=== PATIENT | male | born 1940 | race Caucasian/White ===

== ENCOUNTER → 2016-11-10 | Outpatient (CLI) | payer OTHER ==
[~2016-11-10] MED LIST: AMLO-114 PO; ASPEC325 PO; ASPI-113 PO; ATEN-173 PO; ATV5 PO; CALC500C70 PO; CZR50 PO; HYD50 PO; HYDR-600 PO; HYT/2 PO; INSDGI SC; INSUINJ7 SC; LISI40TA PO; OXYB5TAB74 PO; OXYC-292 PO; PRLSR20 PO; SIMV10TA2 PO; cholecalciferol; potassium otc PO
--- NOTE | 2016-11-10 13:26 | DIAGNOSTIC IMAGING REPORT ---
MRI OF THE LUMBAR SPINE WITHOUT CONTRAST CLINICAL HISTORY: Low back pain radiating into lower extremities. COMPARISON STUDY: No previous studies for comparison. TECHNIQUE: Utilizing a 0.7 Harleen open magnet and dedicated coil, multiplanar, multiecho imaging of the lumbar spine was performed without IV contrast. FINDINGS: For purposes of numbering on this exam, the L5-S1 disc space is assigned to axial image 27 of 30. There is mild anterolisthesis of L4 and L5 likely due to facet arthrosis. Vertebral body heights are maintained. There are Schmorl's node along the inferior endplate of L4. A few additional Schmorl's nodes are present. No marrow replacement is present. The conus terminates at the mid L1 level. This exam is compromised by artifact related to low field strength. There is extensive epidural fat within the lumbar and sacral canals. There is a possible 5 mm synovial cyst arising from the right L2-L3 facet joint within the canal. There may be an additional 5 mm synovial cyst within the right aspect of the canal at the L4-L5 level. L1-2: The central canal and neural foramen are patent. L2-3: There is disc space narrowing with disc bulge, ligamentous hypertrophy and facet arthrosis. There is a possible 5 mm synovial cyst within the right aspect of the canal. There is mild narrowing of the central canal, lateral recesses and left neural foramen with moderate narrowing of the right neural foramen. L3-4: There is mild facet arthrosis and ligamentous hypertrophy. The central canal is patent. There is mild during of both neural foramen. L4-5: There is severe facet arthrosis. Ligamentous hypertrophy is noted. There is a possible 5 mm synovial cyst within the right aspect of the canal. There is extensive epidural fat. There is moderate narrowing of the central canal and neural foramen. L5-S1: There is severe facet arthrosis. There is minimal disc bulge. The central canal is patent. There is moderate left and mild right neural foraminal stenosis. IMPRESSION: 1. Mild multilevel degenerative disc disease with severe multilevel facet arthrosis. 2. Study compromised by artifact related to low field strength. 3. Two possible small synovial cysts within the right aspect of the canal at the L2-L3 and L4-L5 levels, as described above. 4. Moderate multifactorial central canal stenosis at L4-L5. Moderate multilevel neural foraminal stenosis, as detailed above. Extensive epidural fat within the canal. Electronically signed by: Kosta Ellis M.D. 11/10/2016 1:24 PM Dictated Date/Time: 11/10/2016 1:14 PM
== END | disposition home or self-care (01) ==
LOC: C.OPENMRI 11:59
PROVIDERS: ATTEND Pain Medicine Interventional Pain Medicine
DX: M54.5 Low back pain (principal); M48.06 Spinal stenosis, lumbar region

== ENCOUNTER 2017-02-13 13:52 | Emergency (ER) | payer OTHER ==
[~2017-02-13] VITALS: Ht 180.3 cm; Wt 145.1 kg
[~2017-02-13 13:52] MED LIST changes: +DTR/5 PO; -OXYB5TAB74 PO
[2017-02-13 13:58] VITALS: BP 129/66; PULSE 79; TEMP 36.8; O2SAT 92; Ht 180.3 cm; Wt 145.1 kg
--- NOTE | 2017-02-13 14:13 | EMERGENCY ROOM VISIT NOTE ---
ED Visit Note First contact with patient: 14:04 CHIEF COMPLAINT: Tick bite HISTORY OF PRESENT ILLNESS: Patient is a 77-year-old white male who presents to emergency department for evaluation of a right back. He felt it last night. They tried to take it off, but when they looked at it again today they thought the tick was still present. He states that it has been on for less than 24 hours. He believes that he came in on one of his dogs. REVIEW OF SYSTEMS: Review of systems as per HPI. All other systems reviewed were negative. At least 6 systems reviewed. PMH: Electronic medical records are reviewed and summarized as above/below. See Problem List. SOCIAL HISTORY: Patient lives at home. Non-smoker, occasional alcohol use. PHYSICAL EXAM: Vital Signs: Reviewed Nurse's notes. There is a small zone of inflammation and eccymosis around the spot where the tick was, which is scabbed over.. The skin is otherwise clear. NEUROLOGICAL: Alert and cooperative. Sensory and motor functions grossly intact. The patient was seen and assessed as above. He was reassured. The site was examined thoroughly and there did not appear to be a tick, nor any parts of the tick present. Bacitracin and a Band-Aid were applied. There is no indication for Lyme prophylaxis. Problem List Medical Problems: (1) Diab Shante Wo Compl, Type Ii Or Unspec Type, Not Uncntrld Status: Chronic (2) Esophageal Reflux Status: Chronic (3) Hypertension Nos Status: Chronic (4) Left knee DJD Status: Resolved (5) Morbid Obesity Status: Chronic (6) Pure Hypercholesterolem Status: Chronic Surgical Problems: (1) Knee Joint Replacement Status Status: Resolved Current/Historical Medications Unable to Obtain Active Prescriptions or Reported Meds Allergies Coded Allergies: No Known Allergies (Verified , 11/01/13) Vital Signs Date Time Temp Pulse Resp B/P Pulse Ox O2 Delivery O2 Flow Rate FiO2 02/13/17 13:58 36.8 79 22 129/66 92 Room Air Departure Information Impression Primary Impression: Tick bite Prescriptions Unable to Obtain Active Prescriptions or Reported Meds Referrals No Doctor, Assigned (PCP) Patient Instructions My [facility] [employer] Additional Instructions Use Ibuprofen or Tylenol as needed for pain/discomfort. Follow up with family physician for continued care and treatment; rashes, bullet lesion, muscle or joint pain. Watch for signs of infection; increasing redness and swelling, pus like drainage or fevers. Keep antibiotic ointment on the site for 2-3 days. Return to the ED for signs of infection.
== END 2017-02-13 14:18 | disposition home or self-care (01) ==
LOC: C.EDB 13:53 → C.EDD 14:18
DX: S20.461A Insect bite (nonvenomous) of right back wall of thorax, initial encounter (principal); W57.XXXA Bitten or stung by nonvenomous insect and other nonvenomous arthropods, initial encounter; E11.9 Type 2 diabetes mellitus without complications; I10 Essential (primary) hypertension; K21.9 Gastro-esophageal reflux disease without esophagitis; E66.01 Morbid (severe) obesity due to excess calories; E78.00 Pure hypercholesterolemia, unspecified; Z96.659 Presence of unspecified artificial knee joint

== ENCOUNTER 2018-02-17 10:04 | Emergency (ER) | payer OTHER ==
[~2018-02-17] VITALS: Ht 177.8 cm; Wt 129.5 kg
[2018-02-17 10:44] VITALS: TEMP 37; Ht 177.8 cm; Wt 129.5 kg
[2018-02-17 10:50] VITALS: O2SAT 92
[2018-02-17] MEDS ORDERED: VNTHFA/IN INH (10:52)
[2018-02-17] MEDS ORDERED: CALC500C70 PO (10:52)
[2018-02-17] MEDS ORDERED: CHOL1000 PO (10:52)
[2018-02-17] MEDS ORDERED: INSDGI SC (10:52)
[2018-02-17] MEDS ORDERED: NVLG SC ×2 (10:52)
[2018-02-17] MEDS ORDERED: TAMS0.4C38 PO (10:52)
[2018-02-17] MEDS ORDERED: PRLSR20 PO (10:52)
[2018-02-17] MEDS ORDERED: POTA1TAB PO (10:52)
[2018-02-17] MEDS ORDERED: LOSA50TA54 PO (10:52)
[2018-02-17] MEDS ORDERED: TRAM-10 PO (10:52)
[2018-02-17] MEDS ORDERED: DOCU100C31 PO (10:52)
[2018-02-17] MEDS ORDERED: FRS/40 PO (10:52)
[2018-02-17] MEDS ORDERED: ATEN-173 PO (10:52)
[2018-02-17] MEDS ORDERED: ASPITAB PO (10:52)
[2018-02-17] MEDS ORDERED: BUPR150T7 PO (10:52)
[2018-02-17] MEDS ORDERED: LORA-741 PO (10:52)
[2018-02-17] MEDS ORDERED: SIMV20TA2 PO (10:52)
[2018-02-17] MEDS ORDERED: OXYB10TA PO (10:52)
[2018-02-17] MEDS ORDERED: [UNRECOGNIZED DRUG - CODE] PO (10:52)
[2018-02-17 11:21] LABS: ISTAT CREATININE 2.1 mg/dl (0.6-1.3); ISTAT IONIZED CALCIUM 1.17 mmol/l (1.12-1.32); ISTAT POTASSIUM 4.3 mEq/L (3.3-5.0)
[2018-02-17 11:27] LABS: BASO % 0.1 %; BASO ABS # 0.01 K/uL (0-0.2); EOS % 0.6 %; EOS ABS # 0.06 K/uL (0-0.5); HEMATOCRIT 47.7 % (42-52); HEMOGLOBIN 16.8 g/dL (14.0-18.0); IG# 0.07 K/uL (0.00-0.02); LYMPH % 13.2 %; MEAN CELL VOLUME 96.8 fL (80-100); MEAN CORPUSCULAR HEMOGLOBIN 34.1 pg (25-34); MEAN CORPUSCULAR HGB CONC 35.2 g/dl (32-36); MEAN PLATELET VOLUME 11.3 fL (7.4-10.4); MONO % 9.7 %; MONO ABS # 1.03 K/uL (0.11-0.59); NEUT % 75.7 %; NEUT ABS # 8.02 K/uL (1.4-6.5); PLATELET COUNT 177 K/uL (130-400); RED CELL DISTRIBUTION WIDTH CV 14.2 % (11.5-14.5); WHITE BLOOD COUNT 10.59 K/uL (4.8-10.8)
[2018-02-17 11:35] LABS: ALBUMIN 3.2 gm/dl (3.4-5.0); ALT/SGPT 25 U/L (12-78); AST/SGOT 20 U/L (15-37); BLOOD UREA NITROGEN 26 mg/dl (7-18); CALCIUM 9.4 mg/dl (8.5-10.1); CARBON DIOXIDE 30 mmol/L (21-32); CREATININE 2.12 mg/dl (0.60-1.40); GLUCOSE 202 mg/dl (70-99); LIPASE 50 U/L (73-393); POTASSIUM 4.3 mmol/L (3.5-5.1); SODIUM 136 mmol/L (136-145)
[2018-02-17 11:45] LABS: ALKALINE PHOSPHATASE 85 U/L (45-117); PHOSPHORUS 2.8 mg/dl (2.5-4.9); TOTAL PROTEIN 6.9 gm/dl (6.4-8.2)
--- NOTE | 2018-02-17 11:45 | DIAGNOSTIC IMAGING REPORT ---
R PELVIS/UNILATERAL HIP 2-3VIEWS HISTORY: 78 years-old Male right hip pain fall acute pelvic and right hip pain status post fall COMPARISON: None available TECHNIQUE: Single AP view the pelvis with 2 views of the right hip FINDINGS: Moderate degenerative changes about the bilateral femoral acetabular joints with moderate to severe pubic symphysis and moderate bilateral SI joint degenerative change. Facet arthrosis with endplate spurring and intervertebral disc space narrowing involves the imaged lumbar spine. Dystrophic appearing calcifications are seen within the distribution of the proximal hamstring musculature bilaterally. Phleboliths of the pelvis. Peripheral vascular disease. No acute fracture or dislocation. IMPRESSION: 1. No acute fracture or dislocation. 2. Degenerative changes as above. The above report was generated using voice recognition software. It may contain grammatical, syntax or spelling errors. Electronically signed by: Gualberto Griffin M.D. 02/17/2018 11:44 AM Dictated Date/Time: 02/17/2018 11:42 AM
[2018-02-17] MEDS ORDERED: FENTANYL CITRATE INJ 50 MCG/1 ML 2 ML VIAL IV STA (11:51)
--- NOTE | 2018-02-17 11:52 | DIAGNOSTIC IMAGING REPORT ---
R RIBS UNILATERAL WITH PA CHEST CLINICAL HISTORY: Right chest wall pain following fall. COMPARISON STUDY: Chest radiograph November 03, 2013. FINDINGS: No pneumothorax or pleural effusion is noted. Catheter projects over the left hemithorax. No acute right rib fractures are identified although sensitivity is diminished given suboptimal penetration. A few old right-sided rib fractures are noted. There are degenerative changes of the right shoulder. IMPRESSION: No pneumothorax. No acute right rib fractures identified. Electronically signed by: Kosta Ellis M.D. 02/17/2018 11:50 AM Dictated Date/Time: 02/17/2018 11:47 AM
[2018-02-17] MEDS ORDERED: SODIUM CHLORIDE 0.9% 500ML 500 ML IV STA (11:54)
[2018-02-17] MEDS ORDERED: SODIUM CHLORIDE 0.9% 1000ML 1,000 ML IV STA (11:54)
[2018-02-17 13:38] VITALS: BP 142/79; PULSE 80; O2SAT 96
[2018-02-17] MEDS ORDERED: LIDODERM (LIDOCAINE) PATCH 5% TD STA (13:49)
[2018-02-17] MEDS ORDERED: ACETAMINOPHEN 500 MG TAB PO STA (13:49)
[2018-02-17] MEDS ORDERED: LDDP5 TD (14:10)
--- NOTE | 2018-02-17 14:15 | EMERGENCY ROOM VISIT NOTE ---
History Report prepared by Connor: William Olivas Under the Supervision of: Dr. Víctor Head M.D. First contact with patient: 10:25 Stated Complaint: HIP PAIN History of Present Illness The patient is a 78 year old male who presents to the Emergency Room with complaints of constant pain in his right hip that began last Tuesday, 6 days ago. The patient notes that he had a mechanical fall on Tuesday when he tripped over a "dog bed" and fell into his entertainment center. He states that his right hip hit the level of the entertainment center where the TV sits. He was able to walk following the fall, and has been walking all week, although there has been constant pain. The patient [facility] this [facility] for [facility], and he notes that he was "feeling dizzy." [facility] and the patient states that it was "a little funny." He was referred to the ED from the [facility]. The patient notes that he does feel a little short of breath, but this has been present for the past year or so. He denies any COPD, heart failure, anticoagulation therapy, palpitations, or history of irregular heart rate. He is not currently experiencing the dizziness. Per the nursing staff the patient became nauseous while going to get his x-ray at the [facility], which prompted them to get an EKG. Source of History: patient Onset: 6 days ago Position: leg (right hip) Quality: other (Pain from fall) Timing: constant, other (Falling episode 6 days ago) Associated Symptoms: + headache (dizziness earlier today), + nausea ( earlier today) Review of Systems See HPI for pertinent positives and negatives. A total of ten systems were reviewed and were otherwise negative. Past Medical & Surgical Medical Problems: (1) Diab Shante Wo Compl, Type Ii Or Unspec Type, Not Uncntrld (2) Esophageal Reflux (3) Hypertension Nos (4) Left knee DJD (5) Morbid Obesity (6) Pure Hypercholesterolem Surgical Problems: (1) Knee Joint Replacement Status Family History Hypertension Social History Smoking Status: Never Smoker Current/Historical Medications Scheduled Aspirin Buffered (Magaly Plus), 1 TAB PO DAILY Atenolol (Tenormin), 25 MG PO DAILY Bupropion Hcl (Wellbutrin Sr), 150 MG PO BID Calcium Polycarbophil (Eq Fiber Laxative), 1 TAB PO DAILY Calcium/Vitamin D (Os-Dhaval 500 Plus D), 1 TAB PO DAILY Cholecalciferol (Vitamin D3), 1 TAB PO DAILY Docusate Sodium (Docusate Sodium), 200 MG PO DAILY Furosemide (Lasix), 40 MG PO DAILY Insulin Aspart (Novolog), 15 UNITS SC AMPM Insulin Aspart (Novolog), 10 UNITS SC DAILY @ 1200 Insulin Glargine (Lantus), 60 UNITS SC BID Losartan Potassium (Cozaar), 50 MG PO DAILY Omeprazole (Prilosec), 20 MG PO BID Oxybutynin Chloride Er (Ditropan Xl), 10 MG PO HS Potassium Gluconate (Potassium Gluconate), 1 TAB PO DAILY Simvastatin (Zocor), 10 MG PO HS Tamsulosin Hcl (Flomax), 0.4 MG PO DAILY Scheduled PRN Albuterol Hfa (Ventolin Hfa), 2 PUFFS INH Q6H PRN for Shortness of Breath Lidocaine (Lidocaine), 1 PATCH TD DAILY PRN for Pain Lorazepam (Ativan), 0.5 MG PO TID PRN for Anxiety Tramadol (Ultram), 100 MG PO Q6H PRN for Severe Pain Allergies Coded Allergies: No Known Allergies (Verified , 11/01/13) Physical Exam Vital Signs Date Time Temp Pulse Resp B/P (MAP) Pulse Ox O2 Delivery O2 Flow Rate FiO2 02/17/18 13:38 80 18 142/79 96 Room Air 02/17/18 13:01 79 02/17/18 11:34 86 20 158/91 92 Room Air 02/17/18 10:50 92 Room Air 02/17/18 10:44 37.0 98 20 111/71 92 Room Air 02/17/18 10:18 97 Physical Exam GENERAL: Awake, alert, relatively well-appearing, in no distress HENT: Normocephalic, atraumatic. Dry Mucous Membranes. EYES: Normal conjunctiva. Sclera non-icteric. NECK: Supple. No nuchal rigidity. FROM. No JVD. RESPIRATORY: Clear to auscultation. CHEST: There is mild tenderness to the right posterior-lateral chest wall. No contusions/crepitus. CARDIAC: Regular rate, normal rhythm. Extremities warm and well perfused. Pulses equal. ABDOMEN: Soft, non-distended. No tenderness to palpation. No rebound or guarding. No masses. RECTAL: Deferred. MUSCULOSKELETAL: The back is symmetrical on inspection without obvious abnormality. There is no CVA tenderness to palpation. No joint edema. LOWER EXTREMITIES: There is tenderness to the right lateral hip. There is full ROM of the hips bilaterally. Calves are equal size bilaterally and non-tender. No edema. No discoloration. NEURO: Normal sensorium. No sensory or motor deficits noted. SKIN: No rash or jaundice noted. Medical Decision & Procedures ER Provider Diagnostic Interpretation: Radiology results as stated below per my review and radiologist interpretation: R PELVIS/UNILATERAL HIP 2-3VIEWS HISTORY: 78 years-old Male right hip pain fall acute pelvic and right hip pain status post fall COMPARISON: None available TECHNIQUE: Single AP view the pelvis with 2 views of the right hip FINDINGS: Moderate degenerative changes about the bilateral femoral acetabular joints with moderate to severe pubic symphysis and moderate bilateral SI joint degenerative change. Facet arthrosis with endplate spurring and intervertebral disc space narrowing involves the imaged lumbar spine. Dystrophic appearing calcifications are seen within the distribution of the proximal hamstring musculature bilaterally. Phleboliths of the pelvis. Peripheral vascular disease. No acute fracture or dislocation. IMPRESSION: 1. No acute fracture or dislocation. 2. Degenerative changes as above. The above report was generated using voice recognition software. It may contain grammatical, syntax or spelling errors. Electronically signed by: Gualberto Griffin M.D. 02/17/2018 11:44 AM Dictated Date/Time: 02/17/2018 11:42 AM R RIBS UNILATERAL WITH PA CHEST CLINICAL HISTORY: Right chest wall pain following fall. COMPARISON STUDY: Chest radiograph November 03, 2013. FINDINGS: No pneumothorax or pleural effusion is noted. Catheter projects over the left hemithorax. No acute right rib fractures are identified although sensitivity is diminished given suboptimal penetration. A few old right-sided rib fractures are noted. There are degenerative changes of the right shoulder. IMPRESSION: No pneumothorax. No acute right rib fractures identified. Electronically signed by: Kosta Ellis M.D. 02/17/2018 11:50 AM Dictated Date/Time: 02/17/2018 11:47 AM Laboratory Results 02/17/18 11:00 Red Blood Count 4.93, Mean Corpuscular Volume 96.8, Mean Corpuscular Hemoglobin 34.1, Mean Corpuscular Hemoglobin Concent 35.2, Mean Platelet Volume 11.3, Neutrophils (%) (Auto) 75.7, Lymphocytes (%) (Auto) 13.2, Monocytes (%) (Auto) 9.7, Eosinophils (%) (Auto) 0.6, Basophils (%) (Auto) 0.1, Neutrophils # (Auto) 8.02, Lymphocytes # (Auto) 1.40, Monocytes # (Auto) 1.03, Eosinophils # (Auto) 0.06, Basophils # (Auto) 0.01 02/17/18 11:00 Test 02/17/18 11:00 02/17/18 11:06 White Blood Count 10.59 K/uL (4.8-10.8) Red Blood Count 4.93 M/uL (4.7-6.1) Hemoglobin 16.8 g/dL (14.0-18.0) Hematocrit 47.7 % (42-52) Mean Corpuscular Volume 96.8 fL (80-100) Mean Corpuscular Hemoglobin 34.1 pg (25-34) Mean Corpuscular Hemoglobin Concent 35.2 g/dl (32-36) Platelet Count 177 K/uL (130-400) Mean Platelet Volume 11.3 fL (7.4-10.4) Neutrophils (%) (Auto) 75.7 % Lymphocytes (%) (Auto) 13.2 % Monocytes (%) (Auto) 9.7 % Eosinophils (%) (Auto) 0.6 % Basophils (%) (Auto) 0.1 % Neutrophils # (Auto) 8.02 K/uL (1.4-6.5) Lymphocytes # (Auto) 1.40 K/uL (1.2-3.4) Monocytes # (Auto) 1.03 K/uL (0.11-0.59) Eosinophils # (Auto) 0.06 K/uL (0-0.5) Basophils # (Auto) 0.01 K/uL (0-0.2) RDW Standard Deviation 50.0 fL (36.4-46.3) RDW Coefficient of Variation 14.2 % (11.5-14.5) Immature Granulocyte % (Auto) 0.7 % Immature Granulocyte # (Auto) 0.07 K/uL (0.00-0.02) Prothrombin Time 11.0 SECONDS (9.0-12.0) Prothromb Time International Ratio 1.0 (0.9-1.1) Est Creatinine Clear Calc Drug Dose 39.5 ml/min Estimated GFR () 33.8 Estimated GFR (Non- 29.1 BUN/Creatinine Ratio 12.3 (10-20) Calcium Level 9.4 mg/dl (8.5-10.1) Phosphorus Level 2.8 mg/dl (2.5-4.9) Magnesium Level 2.6 mg/dl (1.8-2.4) Total Bilirubin 0.8 mg/dl (0.2-1) Direct Bilirubin 0.2 mg/dl (0-0.2) Aspartate Amino Transf (AST/SGOT) 20 U/L (15-37) Alanine Aminotransferase (ALT/SGPT) 25 U/L (12-78) Alkaline Phosphatase 85 U/L (45-117) Troponin I < 0.015 ng/ml (0-0.045) Pro-B-Type Natriuretic Peptide 257 pg/ml (0-1800) Total Protein 6.9 gm/dl (6.4-8.2) Albumin 3.2 gm/dl (3.4-5.0) Lipase 50 U/L (73-393) Thyroid Stimulating Hormone (TSH) 5.100 uIu/ml (0.300-4.500) Free Thyroxine 1.16 ng/dl (0.80-1.60) Lyme Disease IgG Antibody NEG (NEG) Lyme Disease IgM Antibody NEG (NEG) Bedside Hemoglobin 17.3 g/dl (14.0-18.0) Bedside Hematocrit 51 % (42-52) Bedside Sodium 138 mEq/L (135-144) Bedside Potassium 4.3 mEq/L (3.3-5.0) Bedside Chloride 98 mEq/L (101-112) Bedside Total CO2 28 mEq/l (24-31) Anion Gap 18.0 mmol/L (16-25) Bedside Blood Urea Nitrogen 26 mg/dl (7-18) Bedside Creatinine 2.1 mg/dl (0.6-1.3) Bedside Glucose (other) 209 mg/dl (70-99) Bedside Ionized Calcium (Shauna) 1.17 mmol/l (1.12-1.32) Laboratory results reviewed by me Medications Administered Medications (Trade) Dose Ordered Sig/Leonor Route Start Time Stop Time Status Last Admin Dose Admin Fentanyl Citrate (Fentanyl Inj) 50 mcg NOW STAT IV 02/17/18 11:51 02/17/18 11:52 DC 02/17/18 11:56 50 MCG Sodium Chloride 1,000 ml @ 999 mls/hr Q1H1M STAT IV 02/17/18 11:54 02/17/18 12:54 DC 02/17/18 11:57 999 MLS/HR Sodium Chloride 500 ml @ 999 mls/hr Q31M STAT IV 02/17/18 11:54 02/17/18 12:24 DC 02/17/18 11:54 999 MLS/HR Lidocaine (Lidoderm Patch 5%) 1 patch NOW STAT TD 02/17/18 13:49 02/17/18 13:50 DC 02/17/18 14:14 1 PATCH Acetaminophen (Tylenol Tab) 1,000 mg NOW STAT PO 02/17/18 13:49 02/17/18 13:50 DC 02/17/18 14:13 1,000 MG ECG Per My Interpretation Indication: other (Dizzy, previous EKG changes earlier today) Rate (beats per minute): 80 Rhythm: sinus rhythm Findings: 1st degree AV block, no acute ischemic change, other (LAD, KS interval of 408, QRS 122) Comparison ECG Date: Change: KS interval and QR interval have increased from prior [facility] Course 1026: The patient was evaluated in room A11B. A complete history and physical exam was performed. 1223: I discussed the case with Dr. Cardona - Cardiology. He agreed that he definitely needs further evaluation for his EKG changes. If he is not having any current symptoms it is reasonable to have him follow-up as an outpatient. 1416: I reevaluated the patient. Discussed results and discharge instructions: He verbalized understanding and agreement. The patient is ready for discharge. Medical Decision I reviewed the patient's past medical history, medications, and the nursing notes as described above. Differential diagnosis: Etiologies such as fracture, dislocation, neurovascular compromise, compartment syndrome, soft tissue injury, as well as others were entertained. The patient is a 78 y/o gentleman who presents to the emergency department with right hip pain after a minor near fall into an entertainment center last week [facility] but now sent to ED for evaluation given changes in his EKG which demonstrated and increasing prolonged first degree AVB in the setting increased SOB per HPI. On arrival the patient is in NAD, AFVSS. EKG today demonstrates significantly prolonged first degree AVB of 400s, significantly increased from prior. Labs c/w mild dehydration with Cr of 2.1 up from patient's baseline of 1.6. Otherwise labs unremarkable including WBC , Trop, BNP wnl. Plain films of chest, ribs, hip negative for fx. Given patient' s minor fall, unlikely to have significant injury. Sx most c/w muscular strain. Patient able to ambulate at his baseline with his cane. EKG was reviewed with Dr. Cardona [facility] cardiology on-call, and we agree that given that patient is not having any significant concerning sx at this time such as syncope , it is reasonable to have the patient f/u promptly outpatient for further testing including holter monitor. Findings d/w patient and his daughter at bedside and agree to f/u with [facility]. Findings and plan for follow-up reviewed with patient. Patient agreeable and d/c'd per discharge instructions. Medication Reconcilliation Current Medication List: was personally reviewed by me Blood Pressure Screening Patient's blood pressure: Elevated blood pressure Blood pressure disposition: Elevated BP felt to be situational Consults Time Called: 1203 Consulting Physician: Dr. Cardona - Cardiology Returned Call: [phone] I discussed the case with Dr. Brendan Fagan Cardiology. He agreed that he definitely needs further evaluation for his EKG changes. If he is not having any current symptoms it is reasonable to have him follow-up as an outpatient. Impression Primary Impression: First degree atrioventricular block Additional Impressions: Dehydration Muscle strain of chest wall Strain of muscle of right hip Scribe Attestation The scribe's documentation has been prepared under my direction and personally reviewed by me in its entirety. I confirm that the note above accurately reflects all work, treatment, procedures, and medical decision making performed by me. Departure Information Dispostion Home / Self-Care Prescriptions Lidocaine (Lidocaine) 1 Patch Tdsy 1 PATCH TD DAILY Y for Pain, #10 PATCH Prov: Víctor Head M.D. 02/17/18 Referrals No Doctor, Assigned (PCP) Denis Cardona, DO Patient Instructions ED Chest Pain Costochondritis, ED Dehydration, ED Insufficiency Renal, ED Strain Muscle Ext, Heart Block 1st Degree, My [facility] Additional Instructions Please follow up with your primary care physician on Tuesday for re-evaluation and to arrange further evaluation for your 1st degree heart block, which would include and holter monitor and likely a formal ultrasound. You will also need a cardiology follow-up. Your [facility] clinic may refer you to their providers or if needed are [facility] cardiology clinic information for Dr. Cardona is provided. Your EKG demonstrated an increased delay in your heart's conduction from prior EKGs that deserves further evaluation. Your hip and side pain are likely due to a muscular strain. Otherwise, your exam, EKG, x-rays, and lab results did not show signs of an emergent condition at this time. Continue your current medications as prescribed. Acetaminophen for pain and fevers as needed. Lidoderm patch for additional pain relief as needed. Drink plenty of fluids to ensure hydration. Return to the emergency department for worsening symptoms as described in the accompanying instructions. Problem Qualifiers
== END 2018-02-17 14:34 | disposition home or self-care (01) ==
LOC: EDBD 10:04 → C.EDA 10:05
DX: I44.0 Atrioventricular block, first degree (principal); E86.0 Dehydration; S29.019A Strain of muscle and tendon of unspecified wall of thorax, initial encounter; S76.011A Strain of muscle, fascia and tendon of right hip, initial encounter; W22.8XXA Striking against or struck by other objects, initial encounter; Y92.019 Unspecified place in single-family (private) house as the place of occurrence of the external cause; E11.9 Type 2 diabetes mellitus without complications; K21.9 Gastro-esophageal reflux disease without esophagitis; I10 Essential (primary) hypertension; E78.00 Pure hypercholesterolemia, unspecified; Z79.4 Long term (current) use of insulin; Z79.899 Other long term (current) drug therapy

== ENCOUNTER 2019-04-03 11:29 | Inpatient (IN) ==
--- OUTSIDE RECORDS SUMMARY | 2019-04-03 11:31 | External Medical Summary | Continuity of Care Document ---
:1940 Author Name Giovanna Barth, Provider Address Unavailable Unavailable , Care Team Providers Name Role Phone [facility], Provider Unavailable [email or web address], [email or web address] Unavailable Unavailable Problems Active medical history not documented Allergies and Adverse Reactions Allergy history not documented Medications Medications not documented Procedures Procedures not documented Immunizations Immunizations not documented Plan of Treatment Planned Observations Planned Goals not documented Results No Known Results Results not documented
[2019-04-03 12:14] LABS: Basophils # (auto) 0.02 K/uL (0-0.2); Basophils % (auto) 0.2 %; Eosinophils # (auto) 0.22 K/uL (0-0.5); Eosinophils % (auto) 2.5 %; Hematocrit (blood only) 37.9 % (42-52); Hemoglobin 12.5 g/dL (14.0-18.0); Immature Granulocytes # (auto) 0.03 K/uL (0.00-0.02); Immature Granulocytes % (auto) 0.3 %; Lymphocytes # (auto) 1.13 K/uL (1.2-3.4); Lymphocytes % (auto) 12.7 %; Mean Corpuscular Volume 99.5 fL (80-100); Monocytes % (auto) 11.2 %; Neutrophils # (auto) 6.52 K/uL (1.4-6.5); Neutrophils % (auto) 73.1 %; Platelet Count 184 K/uL (130-400); RDW Coefficient of Variation 15.5 % (11.5-14.5); RDW Standard Deviation 56.6 fL (36.4-46.3); Red Blood Count 3.81 M/uL (4.7-6.1); White Blood Count 8.92 K/uL (4.8-10.8)
--- NOTE | 2019-04-03 12:17 | XRay Report ---
XR chest 1V portable HISTORY: 79 years-old Male Chest Pain acute atypical chest pain COMPARISON: Chest radiograph 08/27/2018 TECHNIQUE: Portable AP view of the chest FINDINGS: Cardiac silhouette is enlarged, unchanged. Pulmonary vascular congestion with mild interstitial coars ening. Calcification of the thoracic aortic arch. Lungs are mildly hypoinflated. Unchanged left subcl vincent pacer. No pneumothorax. Small pleural effusions with bibasilar opacities. IMPRESSION: 1. Cardiomegaly with pulmonary vascular congestion and possible mild pulmonary edema. 2. Small pleural effusions with bibasilar opacities suggestive of probable atelectasis. The above report was generated using voice recognition software. It may contain grammatical, syntax o r spelling errors. Electronically signed by: Gualberto Griffin M.D. 04/03/2019 12:16 PM
[2019-04-03 12:28] LABS: INR 2.9 (0.9-1.1); Prothrombin Time 27.9 Seconds (9.0-12.0)
[2019-04-03 12:39] LABS: Albumin Level 3.2 gm/dl (3.4-5.0); Calcium 8.8 mg/dl (8.5-10.1); Creatinine Clr Calc Pharmacy 41.9 ml/min; Est GFR (African American) 35.1; Est GFR (Non-African American) 30.3; Magnesium 2.5 mg/dl (1.8-2.4); Potassium 4.2 mmol/L (3.5-5.1)
[2019-04-03 12:49] LABS: Albumin Globulin Ratio 0.8 (0.9-2); Bilirubin,Total 0.6 mg/dl (0.2-1); Globulin 3.8 gm/dl (2.5-4.0); Troponin I 0.123 ng/ml (0-0.045)
[2019-04-03] MEDS ORDERED: FUROSEMIDE 40 MG/4 ML VIAL IV STA (12:56)
[2019-04-03] MEDS ORDERED: INSULIN ASPART PER UNIT SC STA (14:35)
--- NOTE | 2019-04-03 14:44 | History & Physical Report ---
Date of Service April 03, 2019 Assessment & Plan (1) Acute on chronic systolic CHF (congestive heart failure): Failed outpt management efforts including home IV lasix dosing x3 and increased spironolactone dosing days Last ECHO 06/2018 with EF 20-25%, severe diffuse hypokinesis, severe LV dysf unction, and mild BNP elevated ECHO pending Cardiology c/s pending Continue home potassium dosing, stable on admission at 4.2 Abd US pending for fluid (2) CKD (chronic kidney disease) stage 3, GFR 30-59 ml/min: Baseline cr 2.2-2.6 2.0 on admission (3) Hypertension: continue home meds (4) HLD (hyperlipidemia): continue home meds (5) Ischemic cardiomyopathy: Last ECHO 06/2018 with EF 20-25%, severe diffuse hypokinesis, severe LV dysfunction, and mild ECHO pending (6) BPH (benign prostatic hyperplasia): continue home meds (7) CAD (coronary artery disease): s/p pacer 04/2018 and stents 08/2018 Takes coumadin for CAD, 10mg 5d/week with 7.5 mg on M/F INR 2.9 on admission (8) History of permanent cardiac pacemaker placement: Stable (9) Elevated troponin: Chronic 0.123 on admission Will repeat x1 given current heart strain and if stable will not repeat (10) Diabetes mellitus type II, uncontrolled: Home lantus dosing + SSI Takes meformin, although uncertain of dosing Will hold for now A1c pending (11) GERD (gastroesophageal reflux disease): continue home meds (12) Depression: continue home meds (13) Anxiety: continue home meds (14) DVT prophylaxis: Therapeutic on coumadin History of Present Illness Primary Care Provider: Stormy Cornejo MD 79 y/o M c/o SOB and fluid retention. Pt states he saw his cardiology PA, Ken Tiwari last Tuesday for a routine f/u. He was doing fine at that time. Starting the next day, he felt like he was starting to retain fluid in his LE and abd. [facility] home nursing saw pt on 03/27 and was given lasix IV 80mg. This was repeated again on 03/29. Pt continued to feel he was retaining fluid and was becoming SOB with ambulation and eventually at rest. He was seen yesterday by [facility] home nursing and given another 160mg IV lasix. His sx persisted so he came to the ED. He has gained about 2 lbs. No chest pain. He is urinating more than usual, but not what he feels he should with the additional lasix. At some point his spironolactone was changed from MWF dosing to QD as well. Pt denies fever, abd pain, n/v/c/d, LE pain. He is eating without issue. He states that he no longer adds any salt to his food. He states that they try to avoid foods with salt in it and has stopped eating hot dogs, but still has regular soup and ham salad. He states they were trying to use Meals on Wheels, but that there was some issue with requesting low sodium meals and they were getting regular sodium meals. He states he is always thirsty and drinks a lot of water. He tries to stay around his 40oz limit, but does go over at times. Pt was given lasix 120mg IV in the ED. He is feeling better and not SOB at rest now. He has not tried to ambulate yet. Still feels fluid retention, especially in his abd. Allergies Allergy/AdvReac Type Severity Reaction Status Date / Time No Known Allergies Allergy Verified 07/10/18 10:02 Home Medications Home Medications Medication Instructions Recorded Confirmed Type Calcium 600 + D(3) 1 tab PO DAILY 07/10/18 04/03/19 History aspirin 81 mg PO DAILY 07/10/18 04/03/19 History atorvastatin [Lipitor] 80 mg PO DAILY 07/10/18 04/03/19 History calcium polycarbophil 1 tab PO DAILY 07/10/18 04/03/19 History cholecalciferol (vitamin D3) 1 tab PO DAILY 07/10/18 04/03/19 History [Vitamin D3] docusate sodium 200 mg PO DAILY 07/10/18 04/03/19 History nitroglycerin [Nitrostat] 0.4 mg SUBLINGUAL DIRECTED PRN 07/10/18 04/03/19 History omeprazole 20 mg PO BID 07/10/18 04/03/19 History tamsulosin 0.4 mg PO DAILY 07/10/18 04/03/19 History warfarin 5 mg PO DAILY 07/10/18 04/03/19 History insulin aspart U-100 [Novolog 30 unit SC ACHS 04/03/19 04/03/19 History Flexpen U-100 Insulin] insulin glargine [Lantus Solostar 60 unit SC Q12 04/03/19 04/03/19 History U-100 Insulin] melatonin 15 mg PO HS 04/03/19 04/03/19 History metolazone 2.5 mg PO BID 04/03/19 04/03/19 History potassium chloride 20 meq PO DAILY 04/03/19 04/03/19 History sertraline 25 mg PO DAILY 04/03/19 04/03/19 History spironolactone 12.5 mg PO DAILY 04/03/19 04/03/19 History torsemide 40 mg PO DAILY 04/03/19 04/03/19 History torsemide 60 mg PO DAILY 04/03/19 04/03/19 History Past Med/Surg History Medical History Hypertension HLD (hyperlipidemia) Ischemic cardiomyopathy (Chronic) Critical surgical severity coronary artery disease with patient declining surgical revascularization BPH (benign prostatic hyperplasia) CAD (coronary artery disease) Critical surgical severity coronary artery disease with patient declining surgical revascularization intervention cardiac catheterization 04/2018 demonstrating critical coronary disease with eccentric high-grade distal left main stenosis, high-grade narrowings of all major left coronary anatomy including 90% proximal LAD, 90% ramus intermedius, 70% proximal circumflex, and 90% narrowing of a large obtuse marginal branch vessel. Left ventricular ejection fraction 20 -25% per echocardiogram and left ventriculogram. Acute on chronic systolic CHF (congestive heart failure) (Acute) Elevated troponin (Chronic) Diabetes mellitus type II, uncontrolled (Chronic) Chronic respiratory failure (Chronic) 2 L NC home O2 PRN CKD (chronic kidney disease), stage III (Chronic) Creatinine at baseline Chronic systolic HF (heart failure) (Chronic) 2/2 severe ischemic cardiomyopathy with apical thrombus Mural thrombus of left ventricle (Chronic) Diagnosed in April 2018 at [facility] [place]. 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) NSTEMI (non-ST elevated myocardial infarction) (Resolved) Surgical History History of total bilateral knee replacement History of appendectomy History of permanent cardiac pacemaker placement (Chronic) Functioning appropriately per past interrogations and current examination History of total knee arthroplasty (Resolved) b/l Status post coronary artery bypass graft (Inactive) Family History Father Stroke Other Heart disease Hypertension Social History Preferred Language: [place] Communication Ability: Effective Visual Impairment: No Limitations Beliefs That Will Affect Care: None marital status: Current Living Situation: Spouse Feels Safe at Home: Yes Smoking Status: Never smoker Second Hand Exposure: No Hx Alcohol Use: No Hx Substance Use: No Review of Systems Review of Systems: Pertinent positives and negatives reviewed in HPI--all others negative Physical Exam Constitutional: WD/WN, vitals as above Eyes: normal visual victor by confrontation and + anicteric sclerae Neck: normal visual inspection and trachea midline Respiratory: normal respiratory effort; no respiratory distress Auscultation: + crackles (bases); no wheezes Cardiovascular: Rate/Rhythm: regular rate and regular rhythm Gastrointestinal (Abdomen): Inspection/Auscultation: + abdomen distended Percussion/Palpation: abdomen nontender and + abdomen not soft Musculoskeletal: Head/Neck/Chest: normocephalic and head atraumatic 3+ pitting edema, peripheral pulses intact Skin: no rashes, warm and dry Neurologic: awake; not confused Speech / Cognition: normal speech Psychiatric: A+Ox3, euthymic affect Results & Data Vital Signs (Past 12 Hours) Vital Signs Temp Pulse Resp BP Pulse Ox 04/03/19 13:00 78 14 95 04/03/19 12:37 77 14 110/68 92 04/03/19 12:04 98 04/03/19 12:00 77 32 H 94 04/03/19 11:36 80 22 96 04/03/19 11:34 36.5 C 78 22 121/77 98 04/03/19 11:19 98 Laboratory Results CXR: small b/l pleural effusions ECG Additional Comments: ventricular paced Code Status & VTE Plan Code Status Full code VTE Prophylaxis Plan VTE Prophylaxis will be ordered: Yes (1) Hypertension Hypertension type: essential hypertension Qualified Code(s): I10 - Essential (primary) hypertension (2) HLD (hyperlipidemia) Hyperlipidemia type: unspecified Qualified Code(s): E78.5 - Hyperlipidemia, unspecified (3) BPH (benign prostatic hyperplasia) Lower urinary tract symptom presence: symptoms absent Qualified Code(s): N40.0 - Benign prostatic hyperplasia without lower urinary tract symptoms
[2019-04-03] MEDS ORDERED: GLUCAGON FOR INJ 1 MG VIAL SQ PRN (16:15)
[2019-04-03] MEDS ORDERED: NITROGLYCERIN SL 0.4 MG/TAB TAB SL PRN (16:15)
[2019-04-03] MEDS ORDERED: CARBOHYDRATES FOR HYPOGLYCEMIA PO PRN (16:15)
[2019-04-03] MEDS ORDERED: GLUCOSE 10 TABS/TUBE PO PRN (16:15)
[2019-04-03] MEDS ORDERED: GLUCOSE 40% GEL 15 GM TUBE PO PRN (16:15)
[2019-04-03] MEDS ORDERED: ACETAMINOPHEN 325 MG TAB PO PRN (16:15)
[2019-04-03] MEDS ORDERED: ONDANSETRON INJ 2 MG/ML 2 ML VIAL IV PRN (16:15)
[2019-04-03] MEDS ORDERED: DEXTROSE 50% 50 ML SYRINGE IV PRN (16:15)
[2019-04-03] MEDS ORDERED: MAGNESIUM HYDROXIDE SUSP 30 ML UDC PO PRN (16:15)
--- NOTE | 2019-04-03 16:59 | Ultrasound Report ---
US abdomen ltd ascites CLINICAL HISTORY: Evaluate for ascites. Abdominal distention. COMPARISON STUDY: None. FINDINGS: Real-time sonographic imaging of the abdomen was performed with community engagement representative images submi tted. No ascites identified. Hepatic steatosis. IMPRESSION: No ascites identified. Electronically signed by: Rishi Penny M.D. 04/03/2019 4:58 PM
[2019-04-03] MEDS ORDERED: metOLazone 2.5 MG TABLET PO SCH (17:30)
[2019-04-03] MEDS ORDERED: TORSEMIDE 20 MG TAB PO SCH (18:00)
--- NOTE | 2019-04-03 18:24 | Emergency Department Note ---
Entered by Monika Matias acting as a scribe for Víctor Head MD History of Present Illness General Chief complaint: Shortness of Breath/Dyspnea Time Seen by Provider: 04/03/19 11:48 Source: patient History of Present Illness Provider complaint: shortness of breath Onset (ago): day(s) (over the last several days) Location: chest Quality: + other (shortness of breath ) Associated symptoms: + other (weight gain); no cough and no fever/chills The patient is a 79 year old male who presents to the Emergency Department with complaints of shortness of breath over the last several days. The patient also reports that he has been gaining weight. He states that he is not normally on Lasix but has home care and was given 180 mg of Lasix yesterday. Per nursing staff, the patient does not smoke and uses 2L of Oxygen as needed. The patient states that he gained 1 pound today from yesterday. He states that the Lasix makes him urinate less. He denies having fevers, chills, cough, and a congestion. The patient does report that his legs have been more swollen than usual. He states that his fire assistant is Dr. Tiwari. The patient states that he sleeps in recliner sitting up and states that he has been doing this for the last couple of weeks. He states that he does not use CPAP at night. Home Medications Home Medications Medication Instructions Recorded Confirmed Type Calcium 600 + D(3) 1 tab PO DAILY 07/10/18 04/03/19 History aspirin 81 mg PO DAILY 07/10/18 04/03/19 History atorvastatin [Lipitor] 80 mg PO DAILY 07/10/18 04/03/19 History calcium polycarbophil 1 tab PO DAILY 07/10/18 04/03/19 History cholecalciferol (vitamin D3) 1 tab PO DAILY 07/10/18 04/03/19 History [Vitamin D3] docusate sodium 200 mg PO DAILY 07/10/18 04/03/19 History nitroglycerin [Nitrostat] 0.4 mg SUBLINGUAL DIRECTED PRN 07/10/18 04/03/19 History omeprazole 20 mg PO BID 07/10/18 04/03/19 History tamsulosin 0.4 mg PO DAILY 07/10/18 04/03/19 History warfarin 5 mg PO DAILY 07/10/18 04/03/19 History insulin aspart U-100 [Novolog 30 unit SC ACHS 04/03/19 04/03/19 History Flexpen U-100 Insulin] insulin glargine [Lantus Solostar 60 unit SC Q12 04/03/19 04/03/19 History U-100 Insulin] melatonin 15 mg PO HS 04/03/19 04/03/19 History metolazone 2.5 mg PO BID 04/03/19 04/03/19 History potassium chloride 20 meq PO DAILY 04/03/19 04/03/19 History sertraline 25 mg PO DAILY 04/03/19 04/03/19 History spironolactone 12.5 mg PO DAILY 04/03/19 04/03/19 History torsemide 40 mg PO DAILY 04/03/19 04/03/19 History torsemide 60 mg PO DAILY 04/03/19 04/03/19 History Allergies Allergy/AdvReac Type Severity Reaction Status Date / Time No Known Allergies Allergy Verified 07/10/18 10:02 Past Med/Surg History Medical History Hypertension HLD (hyperlipidemia) Ischemic cardiomyopathy (Chronic) Critical surgical severity coronary artery disease with patient declining benavides rgical revascularization BPH (benign prostatic hyperplasia) CAD (coronary artery disease) Critical surgical severity coronary artery disease with patient declining surgical revascularization intervention cardiac catheterization 04/2018 demonstrating critical coronary disease with eccentric high-grade distal left main stenosis, high-grade narrowings of all major left coronary anatomy including 90% proximal LAD, 90% ramus intermedius, 70% proximal circumflex, and 90% narrowing of a large obtuse marginal branch vessel. Left ventricular ejection fraction 20 -25% per echocardiogram and left ventriculogram. Acute on chronic systolic CHF (congestive heart failure) (Acute) Elevated troponin (Chronic) Diabetes mellitus type II, uncontrolled (Chronic) Chronic respiratory failure (Chronic) 2 L NC home O2 PRN CKD (chronic kidney disease), stage III (Chronic) Creatinine at baseline Chronic systolic HF (heart failure) (Chronic) 2/2 severe ischemic cardiomyopathy with apical thrombus Mural thrombus of left ventricle (Chronic) Diagnosed in April 2018 at [facility] [place], [place]. 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) NSTEMI (non-ST elevated myocardial infarction) (Resolved) Surgical History History of total bilateral knee replacement History of appendectomy History of permanent cardiac pacemaker placement (Chronic) Functioning appropriately per past interrogations and current examination History of total knee arthroplasty (Resolved) b/l Status post coronary artery bypass graft (Inactive) Family History Father Stroke Other Heart disease Hypertension Social History Preferred Language: Frisian Communication Ability Comment: coquille, h/a not here Visual Impairment: No Limitations Commercial Announcer Required: No Beliefs That Will Affect Care: None marital status: Current Living Situation: Spouse Other Information That Helps Us Care for You: No Feels Safe at Home: Yes Safety Concerns: Feels Safe At This Time Smoking Status: Never smoker Do You Dip or Chew Tobacco: No (former user, quit, "years ago") Second Hand Exposure: No Hx Alcohol Use: No Hx Substance Use: No Review of Systems See HPI for pertinent positives & negatives. and A total of 10 systems reviewed and were otherwise negative Physical Exam Vital Signs Vital Signs - 24 hr 04/03/19 11:19 04/03/19 11:34 04/03/19 11:36 Temperature 36.5 C Temperature Source Oral Sepsis Recent Fever Within 48 Hours No Sepsis New/Unexplained Change in Mental Status No Sepsis Action Taken by Nursing No Action Required Pulse Rate 78 80 Pulse Rate from SpO2 Sensor 80 Respiratory Rate 22 22 Respiratory Effort / Characteristics Spontaneous Labored Spontaneous Labored Respiratory Depth Normal Normal Respiratory Pattern Regular Rapid/Shallow Blood Pressure 121/77 Blood Pressure Mean 91 Blood Pressure Position Sitting Pulse Oximetry 98 98 96 Oxygen Delivery Method Room Air Room Air 04/03/19 12:00 04/03/19 12:04 04/03/19 12:37 Temperature Temperature Source Sepsis Recent Fever Within 48 Hours Sepsis New/Unexplained Change in Mental Status Sepsis Action Taken by Nursing Pulse Rate 77 77 Pulse Rate from SpO2 Sensor 74 80 Respiratory Rate 32 H 14 Respiratory Effort / Characteristics Respiratory Depth Respiratory Pattern Blood Pressure 110/68 Blood Pressure Mean 82 Blood Pressure Position Pulse Oximetry 94 98 92 Oxygen Delivery Method Room Air 04/03/19 13:00 04/03/19 13:19 04/03/19 14:00 Temperature Temperature Source Sepsis Recent Fever Within 48 Hours Sepsis New/Unexplained Change in Mental Status Sepsis Action Taken by Nursing Pulse Rate 78 Pulse Rate from SpO2 Sensor 80 68 68 Respiratory Rate 14 Respiratory Effort / Characteristics Respiratory Depth Respiratory Pattern Blood Pressure 91/59 L Blood Pressure Mean 69 Blood Pressure Position Pulse Oximetry 95 91 96 Oxygen Delivery Method 04/03/19 14:01 Temperature Temperature Source Sepsis Recent Fever Within 48 Hours Sepsis New/Unexplained Change in Mental Status Sepsis Action Taken by Nursing Pulse Rate Pulse Rate from SpO2 Sensor 76 Respiratory Rate Respiratory Effort / Characteristics Respiratory Depth Respiratory Pattern Blood Pressure 123/105 H Blood Pressure Mean 111 Blood Pressure Position Pulse Oximetry 98 Oxygen Delivery Method GENERAL: Awake, alert, fatigued-appearing, in no distress HENT: Normocephalic, atraumatic. Oropharynx unremarkable. EYES: Normal conjunctiva. Sclera non-icteric. NECK: Supple. No nuchal rigidity. FROM. No JVD. RESPIRATORY: Diminished breath sounds at the bases, otherwise clear. CARDIAC: Regular rate, normal rhythm. Extremities warm and well perfused. Pulses equal. ABDOMEN: Soft, non-distended. No tenderness to palpation. No rebound or guarding. No masses. RECTAL: Deferred. MUSCULOSKELETAL: Chest examination reveals no tenderness. The back is symmetrical on inspection without obvious abnormality. There is no CVA tenderness to palpation. No joint edema. LOWER EXTREMITIES: Calves are equal size bilaterally and non-tender. 2+ bilateral lower extremity edema. No discoloration. NEURO: Normal sensorium. No sensory or motor deficits noted. SKIN: No rash or jaundice noted. Course 1157: The patient was evaluated in room C10. A history and physical were performed. 1310: I discussed the patient's case with Dr. Ana Gil who will evaluate the patient for further management. Consultations Consultation #1: Dr. Ana Gil Time: 13:10 Administered Medications Insulin Aspart (Novolog Flexpen) 0 units SC ACHS [facility] Stop: 05/03/19 16:29 Last Admin: 04/03/19 21:57 Dose: Not Given Documented by: [id number] Cosigned by: [id number] Admin: 04/03/19 18:30 Dose: 8 units Documented by: [id number] Cosigned by: [id number] Insulin Glargine (Lantus Solostar Pen) 60 units SC Q12 [facility] Stop: 05/03/19 20:59 Last Admin: 04/03/19 21:57 Dose: 60 units Documented by: [id number] Cosigned by: [id number] Pantoprazole Sodium (Protonix) 40 mg PO BID [facility] Stop: 05/03/19 20:59 Last Admin: 04/03/19 21:24 Dose: 40 mg Documented by: [id number] Sertraline HCl (Zoloft) 25 mg PO HS DOMINICK Stop: 05/03/19 20:59 Last Admin: 04/03/19 21:57 Dose: 25 mg Documented by: [id number] Warfarin Sodium (Coumadin) 10 mg PO [id number] [facility] Stop: 05/03/19 17:59 Last Admin: 04/03/19 18:31 Dose: 10 mg Documented by: [id number] Zolpidem Tartrate (Ambien) 5 mg PO HS PRN PRN Reason: Sleep Stop: 05/03/19 21:30 Last Admin: 04/03/19 22:00 Dose: 5 mg Documented by: [id number] Discontinued Medications Furosemide (Lasix) 120 mg IV NOW STA Stop: 04/03/19 12:57 Last Admin: 04/03/19 13:06 Dose: 120 mg Documented by: [id number] Insulin Aspart (Novolog Per Unit) 7 units SC NOW STA Stop: 04/03/19 14:36 Last Admin: 04/03/19 15:03 Dose: 7 units Documented by: [id number] Cosigned by: [id number] Metolazone (Zaroxolyn) 2.5 mg PO BID@0830,1630 [facility] Stop: 05/03/19 17:29 Last Admin: 04/03/19 18:31 Dose: 2.5 mg Documented by: [id number] Torsemide (Demadex) 40 mg PO DAILY@1700 [facility] Stop: 05/03/19 17:59 Last Admin: 04/03/19 19:09 Dose: 40 mg Documented by: [id number] Medical Decision Making Differential Diagnosis Differential diagnosis: Etiologies such as infections, reactive airway disease, COPD, pneumonia, pleural effusion, pulmonary edema, ARDS, pneumothorax, CHF, cardiac ischemia, cardiac tamponade, dysrhythmia, anemia, pulmonary embolism, musculoskeletal, gastrointestinal process, as well as others were entertained. Medical Records Attestation: I reviewed the patient's medical records. Home Medications Current Medication List: was personally reviewed by me Laboratory Data Attestation: I reviewed the patient's lab results. Result diagrams: 04/03/19 12:00 04/03/19 12:00 Lab Results 04/03/19 04/03/19 04/03/19 Range/Units 12:00 12:00 12:00 WBC 8.92 (4.8-10.8) K/uL RBC 3.81 L (4.7-6.1) M/uL Hgb 12.5 L (14.0-18.0) g/dL Hct 37.9 L (42-52) % MCV 99.5 (80-100) fL MCH 32.8 (25-34) pg MCHC 33.0 (32-36) g/dL RDW Std Deviation 56.6 H (36.4-46.3) fL RDW Coeff of Marli 15.5 H (11.5-14.5) % Plt Count 184 (130-400) K/uL MPV 11.0 H (7.4-10.4) fL Immature Gran % (Auto) 0.3 % Neut % (Auto) 73.1 % Lymph % (Auto) 12.7 % [place] % (Auto) 11.2 % Eos % (Auto) 2.5 % Baso % (Auto) 0.2 % Immature Gran # (Auto) 0.03 H (0.00-0.02) K/uL Neut # (Auto) 6.52 H (1.4-6.5) K/uL Lymph # (Auto) 1.13 L (1.2-3.4) K/uL [place] # (Auto) 1.00 H (0.11-0.59) K/uL Eos # (Auto) 0.22 (0-0.5) K/uL Baso # (Auto) 0.02 (0-0.2) K/uL PT 27.9 H (9.0-12.0) Seconds INR 2.9 H (0.9-1.1) Sodium 139 (136-145) mmol/L Potassium 4.2 (3.5-5.1) mmol/L Chloride 102 (98-107) mmol/L Carbon Dioxide 29 (21-32) mmol/L Anion Gap 8.0 (3-11) BUN 57 H (7-18) mg/dl Creatinine 2.04 H (0.6-1.4) mg/dl Est Cr Clr Drug Dosing 41.9 ml/min Est GFR ( Amer) 35.1 Est GFR (Non-Af Amer) 30.3 BUN/Creatinine Ratio 28.0 H (10-20) Glucose 144 H (70-99) mg/dl POC Glucose (70-99) Calcium 8.8 (8.5-10.1) mg/dl Phosphorus 4.0 (2.5-4.9) mg/dl Magnesium 2.5 H (1.8-2.4) mg/dl Total Bilirubin 0.6 (0.2-1) mg/dl AST 39 H (15-37) U/L ALT 46 (12-78) U/L Alkaline Phosphatase 104 (45-117) U/L Troponin I 0.123 H* (0-0.045) ng/ml NT-Pro-B Natriuret Pep 5071 H (0-1800) pg/ml Total Protein 7.0 (6.4-8.2) gm/dl Albumin 3.2 L (3.4-5.0) gm/dl Globulin 3.8 (2.5-4.0) gm/dl Albumin/Globulin Ratio 0.8 L (0.9-2) Lipase 99 (73-393) U/L 04/03/19 Range/Units 13:30 WBC (4.8-10.8) K/uL RBC (4.7-6.1) M/uL Hgb (14.0-18.0) g/dL Hct (42-52) % MCV (80-100) fL MCH (25-34) pg MCHC (32-36) g/dL RDW Std Deviation (36.4-46.3) fL RDW Coeff of Marli (11.5-14.5) % Plt Count (130-400) K/uL MPV (7.4-10.4) fL Immature Gran % (Auto) % Neut % (Auto) % Lymph % (Auto) % [place] % (Auto) % Eos % (Auto) % Baso % (Auto) % Immature Gran # (Auto) (0.00-0.02) K/uL Neut # (Auto) (1.4-6.5) K/uL Lymph # (Auto) (1.2-3.4) K/uL [place] # (Auto) (0.11-0.59) K/uL Eos # (Auto) (0-0.5) K/uL Baso # (Auto) (0-0.2) K/uL PT (9.0-12.0) Seconds INR (0.9-1.1) Sodium (136-145) mmol/L Potassium (3.5-5.1) mmol/L Chloride (98-107) mmol/L Carbon Dioxide (21-32) mmol/L Anion Gap (3-11) BUN (7-18) mg/dl Creatinine (0.6-1.4) mg/dl Est Cr Clr Drug Dosing ml/min Est GFR ( Amer) Est GFR (Non-Af Amer) BUN/Creatinine Ratio (10-20) Glucose (70-99) mg/dl POC Glucose 141 H (70-99) Calcium (8.5-10.1) mg/dl Phosphorus (2.5-4.9) mg/dl Magnesium (1.8-2.4) mg/dl Total Bilirubin (0.2-1) mg/dl AST (15-37) U/L ALT (12-78) U/L Alkaline Phosphatase (45-117) U/L Troponin I (0-0.045) ng/ml NT-Pro-B Natriuret Pep (0-1800) pg/ml Total Protein (6.4-8.2) gm/dl Albumin (3.4-5.0) gm/dl Globulin (2.5-4.0) gm/dl Albumin/Globulin Ratio (0.9-2) Lipase (73-393) U/L Imaging Data Radiologist's Impression: Radiology results as stated below per my review and the radiologist's interpretation: XR chest 1V portable HISTORY: 79 years-old Male Chest Pain acute atypical chest pain COMPARISON: Chest radiograph 08/27/2018 TECHNIQUE: Portable AP view of the chest FINDINGS: Cardiac silhouette is enlarged, unchanged. Pulmonary vascular congestion with mild interstitial coarsening. Calcification of the thoracic aortic arch. Lungs are mildly hypoinflated. Unchanged left subclavian pacer. No pneumothorax. Small pleural effusions with bibasilar opacities. IMPRESSION: 1. Cardiomegaly with pulmonary vascular congestion and possible mild pulmonary edema. 2. Small pleural effusions with bibasilar opacities suggestive of probable atelectasis. The above report was generated using voice recognition software. It may contain grammatical, syntax or spelling errors. Electronically signed by: Gualberto Griffin M.D. 04/03/2019 12:16 PM ECG Data Attestation: I personally reviewed and interpreted this ECG as follows: Indication: SOB/dyspnea Rate (beats per minute): 62 Rhythm: other (atrial sense paced) Findings: no PAC, no PVC, no ST depression, no ST elevation, no acute ischemic change and no ectopy Blood Pressure Blood Pressure Findings: Normal blood pressure MDM Narrative The patient is a pleasant 79-year-old gentleman with a past medical history of CKD, CHF, cardiomyopathy, permanent pacemaker who presents emergency department with persistent shortness of breath in the setting of increased water weight gain that did not improve with outpatient attempts for additional diuresis with IV Lasix in the setting of the patient's normal torsemide and metolazone per hpi. On arrival the patient is fatigued and mildly dyspneic but no acute distress, afebrile with stable vital signs. Patient will become significantly dyspneic when lying flat or with minimal exertion. EKG demonstrates paced rhythm without overt ischemia. Chest x-ray demonstrates venous congestion with mild pulmonary edema and bibasilar pleural effusions. WBC within normal limits. H/H approximate to prior values. Platelets within normal limits. Chemistry without acidosis. Creatinine is 2.04 within patient's baseline CKD. Troponin 0.109 within patient's range of prior chronic troponin elevations. BNP 5K. Patient was given IV Lasix. Given failed outpatient attempts for diuresis/fluid removal reasonable to admit the patient for further management. Case was discussed with Padmini Blake PA-C, who will evaluate the patient for admission. Impression & Plan CHF exacerbation Discharge Plan Visit Data *Final* Discharge Date/Time: 04/03/19 16:05 Chief Complaint: Shortness of Breath/Dyspnea ED Provider: Víctor Head Discharge Problem: CHF exacerbation Patient Disposition: Admitted As Inpatient Discharge Instructions Interventions: ED Discharge Assessment Last Done: 04/03/19 16:05 Discharge Problem: CHF exacerbation Qualifiers: Heart failure type: unspecified Qualified Code(s): I50.9 - Heart failure, unspe cified The scribe's documentation has been prepared under my direction and personally reviewed by me in its entirety. I confirm that the note above accurately reflects all work, treatment, procedures, and medical decision making performed by me.
[2019-04-03] MEDS: INSULIN ASPART 100 UNITS/ML 3 ML PEN SC SCH ×2 (18:30→21:57)
[2019-04-03] MEDS: WARFARIN SOD 10 MG TAB PO SCH (18:31)
--- NOTE | 2019-04-03 19:10 | Cardiology Consultation ---
Date of Consultation April 03, 2019 Assessment & Plan (1) Acute on chronic systolic CHF (congestive heart failure): (2) Ischemic cardiomyopathy: (3) CKD (chronic kidney disease) stage 3, GFR 30-59 ml/min: (4) Left ventricular apical thrombus: INR is 2.9 today 04/03/2019 Creatinine is 2.04. Compared to recent outpatient notes, this is been about his baseline on serial recent repeat laboratory studies. At the time of his most recent outpatient cardiology follow-up visit on 03/26/2019, he was on torsemide 60 mg daily in the a.m. and 40 mg in the p.m. This was held and he received furosemide 80 mg IV x2 doses at home. Then yesterday 04/02/2019 he received 160 mg of IV furosemide. He already received 40 mg of p.o. furosemide at 5 PM today along with 2.5 mg of Zaroxolyn. Will hold further IV diuretics and reassess tomorrow for possible furosemide infusion if renal function and electrolytes allow. Check INR and chem panel in am. Mild troponin elevation is likely consistent with his systolic heart failure, I do not think his presentation is suggestive of an acute coronary syndrome. History of Present Illness Attending Physician: Vashti Figueroa, DO History of Present Illness Denis Escamilla is a 79 year old male seen in cardiology consultation per the request of Dr Figueroa for the evaluation of congestive heart failure. The patient's primary supervisor cell efficiency is Dr Denis Cardona , however I am acquainted with the patient having followed him during his hospital stay at [facility] in August,. Patient receives his primary care through the local [facility] clinic. The patient reports worsening fluid retention in his lower extremities and abdomen. He has been following closely with [facility] at home as well as the heart failure clinic at [facility]. Yesterday he was seen as an acute visit by the at home nurse on 04/02/2019 and received 160 mg of IV furosemide. His recent weights have been relatively stable: 04/02 290.5lbs 04/01 290.5 03/31 291.0 03/30 292.0 03/29 292.5 However looking back at his chart, his weight has been as low as 280- 283 lbs in January,. Chest x-ray performed in the emergency room today reveals a small bilateral, right greater than left pleural effusions. The patient's cardiac history dates back to April 2018 when he was admitted to the [facility] with a non-ST segment elevation myocardial infarction. The patient was evaluated by Dr. Peters of our practice and urgent cardiac catheterization was performed demonstrating critical coronary heart disease with an eccentric high-grade distal left main stenosis, high-grade narrowings of all major left coronary anatomy including 90% proximal LAD, 90% ramus intermedius, 70% proximal circumflex, and 90% narrowing of a large obtuse marginal branch of the circumflex. Severe left ventricular systolic dysfunction was noted with ejection fraction in the range of 20 to 25%. [place] [facility] [place] a biventricular pacemaker was implanted in April 2018 to allow for additional beta-landon therapy. A defibrillator was offered to the patient however the patient declined. The patient had multiple readmissions for congestive heart failure after the index hospital stay. In August 2018, he was reassessed by the undersigned, and transferred back [place] [facility] [place] consideration of revascularization. He was felt to be a poor candidate for surgery given his comorbidities including obesity, diabetes, low ejection fraction, and chronic kidney disease. He therefore ultimately underwent complex multi-vessel percutaneous intervention with Impella assist device support receiving a drug-eluting stent from the left main into the circumflex. The left anterior descending was treated with 2 drug- eluting stents in the ramus intermedius was treated with one drug-eluting stent. The patient has remained on dual antiplatelet therapy with aspirin and clopidogrel in the interim. He has remained on warfarin for treatment of previously diagnosed left ventricular mural thrombus. Past Cardiac History: 1.Severe ischemic cardiomyopathy. LVEF 20-25%. 2.Status post April 2018 NSTEMI 3.Multivessel coronary artery disease including left main disease status post multivessel stenting on September 05, 2018. 4.Chronic systolic congestive heart failure. [place] [employer] Class 3+, left bundle branch block 5.Status post biventricular pacemaker implantation without ICD implantation on May 10, 2018 6.Apical left ventricular mural thrombus. 7.Obesity hypoventilation syndrome 8.Pulmonary hypertension. Allergies Allergy/AdvReac Type Severity Reaction Status Date / Time No Known Allergies Allergy Verified 07/10/18 10:02 Home Medications Home Medications Medication Instructions Recorded Confirmed Type Calcium 600 + D(3) 1 tab PO DAILY 07/10/18 04/03/19 History aspirin 81 mg PO DAILY 07/10/18 04/03/19 History atorvastatin [Lipitor] 80 mg PO DAILY 07/10/18 04/03/19 History calcium polycarbophil 1 tab PO DAILY 07/10/18 04/03/19 History cholecalciferol (vitamin D3) 1 tab PO DAILY 07/10/18 04/03/19 History [Vitamin D3] docusate sodium 200 mg PO DAILY 07/10/18 04/03/19 History nitroglycerin [Nitrostat] 0.4 mg SUBLINGUAL DIRECTED PRN 07/10/18 04/03/19 History omeprazole 20 mg PO BID 07/10/18 04/03/19 History tamsulosin 0.4 mg PO DAILY 07/10/18 04/03/19 History warfarin 5 mg PO DAILY 07/10/18 04/03/19 History insulin aspart U-100 [Novolog 30 unit SC ACHS 04/03/19 04/03/19 History Flexpen U-100 Insulin] insulin glargine [Lantus Solostar 60 unit SC Q12 04/03/19 04/03/19 History U-100 Insulin] melatonin 15 mg PO HS 04/03/19 04/03/19 History metolazone 2.5 mg PO BID 04/03/19 04/03/19 History potassium chloride 20 meq PO DAILY 04/03/19 04/03/19 History sertraline 25 mg PO DAILY 04/03/19 04/03/19 History spironolactone 12.5 mg PO DAILY 04/03/19 04/03/19 History torsemide 40 mg PO DAILY 04/03/19 04/03/19 History torsemide 60 mg PO DAILY 04/03/19 04/03/19 History Patient History Medical History Hypertension HLD (hyperlipidemia) Ischemic cardiomyopathy (Chronic) Critical surgical severity coronary artery disease with patient declining surgical revascularization BPH (benign prostatic hyperplasia) CAD (coronary artery disease) Critical surgical severity coronary artery disease with patient declining surgical revascularization intervention cardiac catheterization 04/2018 demonstrating critical coronary disease with eccentric high-grade distal left main stenosis, high-grade narrowings of all major left coronary anatomy including 90% proximal LAD, 90% ramus intermedius, 70% proximal circumflex, and 90% narrowing of a large obtuse marginal branch vessel. Left ventricular ejection fraction 20 -25% per echocardiogram and left ventriculogram. Acute on chronic systolic CHF (congestive heart failure) (Acute) Elevated troponin (Chronic) Diabetes mellitus type II, uncontrolled (Chronic) Chronic respiratory failure (Chronic) 2 L NC home O2 PRN CKD (chronic kidney disease), stage III (Chronic) Creatinine at baseline Chronic systolic HF (heart failure) (Chronic) 2/2 severe ischemic cardiomyopathy with apical thrombus Mural thrombus of left ventricle (Chronic) Diagnosed in [place] [facility] 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) NSTEMI (non-ST elevated myocardial infarction) (Resolved) Surgical History History of total bilateral knee replacement History of appendectomy History of permanent cardiac pacemaker placement (Chronic) Functioning appropriately per past interrogations and current examination History of total knee arthroplasty (Resolved) b/l Status post coronary artery bypass graft (Inactive) Family History Father Stroke Other Heart disease Hypertension Social History Preferred Language: Czech Communication Ability Comment: [email or web address], h/a not here Visual Impairment: No Limitations Manager Trade Required: No Beliefs That Will Affect Care: None marital status: Current Living Situation: Spouse Other Information That Helps Us Care for You: No Feels Safe at Home: Yes Safety Concerns: Feels Safe At This Time Smoking Status: Never smoker Do You Dip or Chew Tobacco: No (former user, quit, "years ago") Second Hand Exposure: No Hx Alcohol Use: No Hx Substance Use: No Review of Systems Review of Systems: Patient notes difficulty lying supine due to dyspnea when he tries to sleep. Lower extremity edema noted, chronic dyspnea noted, increased abdominal bloating noted. Physical Exam Physical Exam: General: no acute distress and stated age Eyes: conjunctiva are pink and non-injected, sclera clear Neck: Elevated jugular venous pressure Chest: normal shape and normal respiratory effort Lungs: Decreased breath sounds bilaterally at the bases right worse than left Cardiac Exam: - regular heart sounds, no murmurs, rubs, or gallops, no jugular venous distention Abdomen: abdomen soft, mild bloating, nontender Extremities: 1-2+ bilateral lower extremity edema worse at the sock line Neuro:awake, coversant, follows commands, no focal motor deficits Results & Data Vital Signs (Past 12 Hours) Vital Signs Temp Pulse Resp BP BP Pulse Ox 04/03/19 16:16 36.5 C 20 113/67 95 04/03/19 15:00 113/72 90 04/03/19 14:01 123/105 H 98 04/03/19 14:00 96 04/03/19 13:19 91/59 L 91 04/03/19 13:00 78 14 95 04/03/19 12:37 77 14 110/68 92 04/03/19 12:04 98 04/03/19 12:00 77 32 H 94 04/03/19 11:36 80 22 96 04/03/19 11:34 36.5 C 78 22 121/77 98 04/03/19 11:19 98 Laboratory Results Cardiac Enzymes 04/03/19 04/03/19 Range/Units 12:00 17:33 AST 39 H (15-37) U/L Troponin I 0.123 H* 0.109 H* (0-0.045) ng/ml Coagulation 04/03/19 Range/Units 12:00 PT 27.9 H (9.0-12.0) Seconds CBC 04/03/19 Range/Units 12:00 WBC 8.92 (4.8-10.8) K/uL RBC 3.81 L (4.7-6.1) M/uL Hgb 12.5 L (14.0-18.0) g/dL Hct 37.9 L (42-52) % Plt Count 184 (130-400) K/uL Neut # (Auto) 6.52 H (1.4-6.5) K/uL Lymph # (Auto) 1.13 L (1.2-3.4) K/uL Sunflower # (Auto) 1.00 H (0.11-0.59) K/uL Eos # (Auto) 0.22 (0-0.5) K/uL Baso # (Auto) 0.02 (0-0.2) K/uL Comprehensive Metabolic Panel 04/03/19 Range/Units 12:00 Sodium 139 (136-145) mmol/L Potassium 4.2 (3.5-5.1) mmol/L Chloride 102 (98-107) mmol/L Carbon Dioxide 29 (21-32) mmol/L BUN 57 H (7-18) mg/dl Creatinine 2.04 H (0.6-1.4) mg/dl Glucose 144 H (70-99) mg/dl Calcium 8.8 (8.5-10.1) mg/dl AST 39 H (15-37) U/L ALT 46 (12-78) U/L Alkaline Phosphatase 104 (45-117) U/L Total Protein 7.0 (6.4-8.2) gm/dl Albumin 3.2 L (3.4-5.0) gm/dl Intake and Output 04/03/19 04/03/19 04/03/19 06:59 14:59 22:59 Other: Weight 135.4 kg 135.4 kg Patient Weight 04/04/19 06:59 Weight 135.4 kg Diagnostic Findings Summary of most recent transthoracic echocardiogram performed 01/31/2019 at [facility]: The qualitative LV ejection fraction is 30-34% (moderately reduced). The left ventricular systolic function is moderately reduced. Left ventricular apical trabeculae are noted. There is no left ventricular mural thrombus. There is moderate diffuse left ventricular hypokinesis. The left atrium is severely enlarged (>48 ml/m^2,). The estimated pulmonary artery systolic pressure is 56mm Hg. Moderate pulmonary hypertension is present. Mild mitral regurgitation is present. Moderate tricuspid regurgitation is present. EKG performed today 04/03/2019 at 11:57 AM revealed atrial sensed rhythm with ventricular paced QRS complexes. Medications Administered Current Inpatient Medications Acetaminophen (Tylenol) 650 mg PO Q4H PRN PRN Reason: Pain or Fever Stop: 05/03/19 16:14 Aspirin (Ecotrin Ectab) 81 mg PO DAILY [facility] Stop: 05/04/19 08:59 Atorvastatin Calcium (Lipitor) 80 mg PO DAILY [facility] Stop: 05/04/19 08:59 Calcium Polycarbophil (Fibercon) 1 tab PO DAILY [facility] Stop: 05/04/19 08:59 Dextrose (Dextrose 50%) 25 - 50 ml IV UD PRN; Protocol PRN Reason: Hypoglycemia Protocol Stop: 05/03/19 16:14 Docusate Sodium (Colace) 200 mg PO DAILY [facility] Stop: 05/04/19 08:59 Glucagon (Glucagen) 1 mg SQ UD PRN; Protocol PRN Reason: Hypoglycemia Protocol Stop: 05/03/19 16:14 Glucose (Dex4 Glucose) 4 - 8 tabs PO UD PRN; Protocol PRN Reason: Hypoglycemia Protocol Stop: 05/03/19 16:14 Glucose (Glucose 40%) 15 - 30 gm PO UD PRN; Protocol PRN Reason: Hypoglycemia Protocol Stop: 05/03/19 16:14 Insulin Aspart (Novolog Flexpen) 0 units SC ACHS [facility] Stop: 05/03/19 16:29 Last Admin: 04/03/19 18:30 Dose: 8 units Documented by: Insulin Glargine (Lantus Solostar Pen) 60 units SC Q12 [facility] Stop: 05/03/19 20:59 Magnesium Hydroxide (Milk Of Magnesia) 30 ml PO Q12H PRN PRN Reason: Constipation Stop: 05/03/19 16:14 Metolazone (Zaroxolyn) 2.5 mg PO BID@0830,1630 [facility] Stop: 05/03/19 17:29 Last Admin: 04/03/19 18:31 Dose: 2.5 mg Documented by: Miscellaneous (Carbohydrates For Hypoglycemia) 15 - 30 gm PO UD PRN PRN Reason: Hypoglycemia Treatment Stop: 05/03/19 16:14 Multivitamins/Minerals (Caltrate Plus) 1 tab PO DAILY [facility] Stop: 05/04/19 08:59 Nitroglycerin (Nitrostat) 0.4 mg SL UD PRN PRN Reason: Chest Pain Stop: 05/03/19 16:14 Ondansetron HCl (Zofran) 4 mg IV Q6H PRN PRN Reason: Nausea Stop: 05/03/19 16:14 Pantoprazole Sodium (Protonix) 40 mg PO BID [facility] Stop: 05/03/19 20:59 Potassium Chloride (Klor-Con M10) 30 meq PO DAILY [facility] Stop: 05/04/19 08:59 Sertraline HCl (Zoloft) 25 mg PO DAILY [facility] Stop: 05/04/19 08:59 Spironolactone (Aldactone) 12.5 mg PO DAILY [facility] Stop: 05/04/19 08:59 Tamsulosin HCl (Flomax) 0.4 mg PO DAILY [facility] Stop: 05/04/19 08:59 Torsemide (Demadex) 60 mg PO DAILY [facility] Stop: 05/04/19 08:59 Torsemide (Demadex) 40 mg PO DAILY@1700 [facility] Stop: 05/03/19 17:59 Vitamin D (Vitamin D3) 1,000 units PO DAILY [facility] Stop: 05/04/19 08:59 Warfarin Sodium (Coumadin) 10 mg PO SuTuWeThSa@1600 [facility] Stop: 05/03/19 17:59 Last Admin: 04/03/19 18:31 Dose: 10 mg Documented by: Warfarin Sodium (Coumadin) 7.5 mg PO MoFr@1600 [facility] Stop: 05/06/19 15:59
[2019-04-03] MEDS ORDERED: NON-FORMULARY MEDICATION (Melatonin 15 MG) PO SCH (21:00)
[2019-04-03] MEDS: PANTOprazole 40 MG TAB PO SCH (21:24)
--- NOTE | 2019-04-03 21:42 | Ultrasound Report ---
ULTRASOUND THE PLEURAL SPACES CLINICAL HISTORY: Congestive heart failure and pleural effusion. COMPARISON STUDY: Chest x-ray dated 04/03/2019. FINDINGS: Real-time grayscale sonography of the pleural spaces is performed to assess for pleural eff usions. There are small bilateral pleural effusions with associated atelectasis. The right pleural ef fusion has an estimated volume of 615 cc and the left pleural effusion has an estimated volume of 430 cc. Neither pleural effusion was marked for thoracentesis due to intervening lung tissue. IMPRESSION: Small pleural effusions as above. These were not marked for bedside thoracentesis. Electronically signed by: Blaise Long M.D. 04/03/2019 9:41 PM
[2019-04-03] MEDS: INSULIN GLARGINE SOLOSTAR 100 UNITS/ML 3 ML PEN SC SCH (21:57)
[2019-04-03] MEDS: SERTRALINE HCL 50 MG TABLET PO SCH (21:57)
[2019-04-03] MEDS: ZOLPIDEM TARTRATE 5 MG TAB PO PRN (22:00)
[2019-04-04 08:02] LABS: INR 2.3 (0.9-1.1); Prothrombin Time 22.5 Seconds (9.0-12.0)
[2019-04-04] MEDS: DOCUSATE SODIUM 100 MG CAP PO SCH (08:04)
[2019-04-04] MEDS: ASPIRIN 81 MG ECTAB PO SCH (08:04)
[2019-04-04] MEDS: TAMSULOSIN HCL 0.4 MG CAP PO SCH (08:04)
[2019-04-04] MEDS: CALCIUM POLYCARBOPHIL 625MG TAB PO SCH (08:04)
[2019-04-04] MEDS: CALCIUM 600MG + VIT D 400 IU TAB PO SCH (08:04)
[2019-04-04] MEDS: ATORVASTATIN 40 MG TAB PO SCH (08:04)
[2019-04-04] MEDS: PANTOprazole 40 MG TAB PO SCH ×2 (08:04→20:35)
[2019-04-04] MEDS: SPIRONOLACTONE 25 MG TAB PO SCH (08:04)
[2019-04-04] MEDS: INSULIN ASPART 100 UNITS/ML 3 ML PEN SC SCH ×4 (08:05→20:36)
[2019-04-04] MEDS: POTASSIUM CHLORIDE 10 MEQ TABCR PO SCH (08:05)
[2019-04-04] MEDS: CHOLECALCIFEROL 1,000 UNITS TAB PO SCH (08:05)
[2019-04-04] MEDS: INSULIN GLARGINE SOLOSTAR 100 UNITS/ML 3 ML PEN SC SCH ×2 (08:05→20:36)
[2019-04-04 08:18] LABS: Estimated Average Glucose 249 mg/dl; Hemoglobin A1C 10.3 % (4.5-5.6)
[2019-04-04 08:27] LABS: BUN Creatinine Ratio 26.3 (10-20); Calcium 9.4 mg/dl (8.5-10.1); Creatinine Clr Calc Pharmacy 40.4 ml/min; Est GFR (African American) 33.7; Est GFR (Non-African American) 29.1; Potassium 3.8 mmol/L (3.5-5.1)
[2019-04-04] MEDS ORDERED: SERTRALINE HCL 50 MG TABLET PO SCH (09:00)
[2019-04-04] MEDS ORDERED: TORSEMIDE 20 MG TAB PO SCH (09:00)
[2019-04-04] MEDS ORDERED: FUROSEMIDE 60 MG in SYRINGE 0 ML IV ONE (10:50)
[2019-04-04] MEDS: FUROSEMIDE 100 MG in DEXTROSE 5% 90 ML IV SCH ×2 (11:14→20:34)
--- NOTE | 2019-04-04 13:26 | Cardiology Progress Note ---
Date of Service April 04, 2019 Assessment & Plan (1) Acute on chronic systolic CHF (congestive heart failure): Creatinine of 2.11 is relatively stable compared to his recent outpatient baseline. We will proceed cautiously with furosemide infusion. Blood pressure remained stable. I have ordered a repeat chemistry panel at 1500 today to reassess his kidney function and electrolytes. He is on potassium supplementation orally, and spironolactone. (2) Ischemic cardiomyopathy: Initially patient had severe LV systolic dysfunction at the time of diagnosis, posterior vascular station, repeat echocardiogram in January, revealed improvement in the LVEF to the range of 29% as summarized in his echo report in my consultation note 04/03/2019. Patient had complex multivessel PCI including left main, circumflex, ramus, stents with Impella left ventricular assist device support in August, after being felt to be too high risk for CABG. Continue aspirin and clopidogrel.Resume outpatient dose of toprol 50 mg daily. Not on ACEI, ARB, or Entresto due to baseline renal insufficiency. Patient has biventricular pacemaker without defibrillator capability . (3) Left ventricular apical thrombus: Continue Coumadin, INR 2.3. The mural thrombus had improved/resolved on most recent echocardiogram, however the substrate for recurrent thrombus was still there and therefore ongoing anticoagulation was recommended. The patient has a relatively small right pleural effusion on chest ultrasound and chest x-ray. I think it is most prudent to proceed with diuretic therapy rather than thoracentesis as I would prefer to not interrupt his anticoagulation. (4) CKD (chronic kidney disease) stage 3, GFR 30-59 ml/min: Renal function stable compared to baseline. Continue to follow closely. Subjective Chief complaint: Follow-up shortness of breath, abdominal bloating, lower extremity edema Subjective: Patient notes slight interval improvement compared to yesterday. After my discussion with Dr. Cochran this am and review of the patient's lab results and progress overnight, he was moved to room 243-1, and a furosemide infusion has been initiated at 10 mg/h. Blood pressure remains stable. The patient notes vigorous urine output in his bedside/chair side urinal. Physical Exam Physical Exam: General: Obese, no acute distress, chronically ill in appearance Eyes: conjunctiva are pink and non-injected, sclera clear Neck: Mild jugular venous distention at 45 degrees Chest: normal shape and normal respiratory effort Lungs: Mildly decreased breath sounds at the bases Cardiac Exam: - regular heart sounds, no murmurs Abdomen: abdomen soft, non-tender, mild distention Extremities: 1 to 2 + lower extremity edema, no significant skin breakdown Neuro:awake, coversant, follows commands, no focal motor deficits Psych: appropriate affect and insight. Results & Data Vital Signs (Past 12 Hours) Vital Signs Temp Pulse Pulse Resp BP Pulse Ox 04/04/19 11:48 36.4 C L 79 18 147/76 H 95 04/04/19 08:00 71 04/04/19 07:00 36.6 C 75 18 124/73 93 04/04/19 03:50 36.3 C L 79 20 132/79 96 Laboratory Results Cardiac Enzymes 04/03/19 Range/Units 17:33 Troponin I 0.109 H* (0-0.045) ng/ml Coagulation 04/04/19 Range/Units 07:38 PT 22.5 H (9.0-12.0) Seconds Comprehensive Metabolic Panel 04/04/19 Range/Units 07:38 Sodium 139 (136-145) mmol/L Potassium 3.8 (3.5-5.1) mmol/L Chloride 98 (98-107) mmol/L Carbon Dioxide 34 H (21-32) mmol/L BUN 55 H (7-18) mg/dl Creatinine 2.11 H (0.6-1.4) mg/dl Glucose 179 H (70-99) mg/dl Calcium 9.4 (8.5-10.1) mg/dl Intake and Output 04/03/19 04/04/19 04/04/19 22:59 06:59 14:59 Intake Total 625 / 625 Output Total 1825 / 1825 Balance -1200 / -1200 Intake: Oral 625 / 625 Output: Urine 1825 / 1825 Other: Weight 135.4 kg 134.4 kg 134.4 kg Patient Weight 04/05/19 06:59 Weight 134.4 kg Diagnostic Findings Chest ultrasound performed today with small bilateral pleural effusions, the right pleural effusion had an estimated volume of 615 mL, and left pleural effusion had an estimated volume of 430 mL. Medications Administered Current Inpatient Medications Acetaminophen (Tylenol) 650 mg PO Q4H PRN PRN Reason: Pain or Fever Stop: 05/03/19 16:14 Aspirin (Ecotrin Ectab) 81 mg PO DAILY [facility] Stop: 05/04/19 08:59 Last Admin: 04/04/19 08:04 Dose: 81 mg Documented by: Atorvastatin Calcium (Lipitor) 80 mg PO DAILY [facility] Stop: 05/04/19 08:59 Last Admin: 04/04/19 08:04 Dose: 80 mg Documented by: Calcium Polycarbophil (Fibercon) 1 tab PO DAILY [facility] Stop: 05/04/19 08:59 Last Admin: 04/04/19 08:04 Dose: 1 tab Documented by: Dextrose (Dextrose 50%) 25 - 50 ml IV UD PRN; Protocol PRN Reason: Hypoglycemia Protocol Stop: 05/03/19 16:14 Docusate Sodium (Colace) 200 mg PO DAILY [facility] Stop: 05/04/19 08:59 Last Admin: 04/04/19 08:04 Dose: 200 mg Documented by: Glucagon (Glucagen) 1 mg SQ UD PRN; Protocol PRN Reason: Hypoglycemia Protocol Stop: 05/03/19 16:14 Glucose (Dex4 Glucose) 4 - 8 tabs PO UD PRN; Protocol PRN Reason: Hypoglycemia Protocol Stop: 05/03/19 16:14 Glucose (Glucose 40%) 15 - 30 gm PO UD PRN; Protocol PRN Reason: Hypoglycemia Protocol Stop: 05/03/19 16:14 Furosemide 100 mg/ Dextrose 100 mls @ 10 mls/hr IV .Q10H [facility] Stop: 05/04/19 10:54 Last Admin: 04/04/19 11:14 Dose: 10 mg/hr, 10 mls/hr Documented by: Insulin Aspart (Novolog Flexpen) 0 units SC ACHS [facility] Stop: 05/03/19 16:29 Last Admin: 04/04/19 12:07 Dose: 14 units Documented by: Insulin Glargine (Lantus Solostar Pen) 60 units SC Q12 [facility] Stop: 05/03/19 20:59 Last Admin: 04/04/19 08:05 Dose: 60 units Documented by: Magnesium Hydroxide (Milk Of Magnesia) 30 ml PO Q12H PRN PRN Reason: Constipation Stop: 05/03/19 16:14 Miscellaneous (Carbohydrates For Hypoglycemia) 15 - 30 gm PO UD PRN PRN Reason: Hypoglycemia Treatment Stop: 05/03/19 16:14 Multivitamins/Minerals (Caltrate Plus) 1 tab PO DAILY [facility] Stop: 05/04/19 08:59 Last Admin: 04/04/19 08:04 Dose: 1 tab Documented by: Nitroglycerin (Nitrostat) 0.4 mg SL UD PRN PRN Reason: Chest Pain Stop: 05/03/19 16:14 Ondansetron HCl (Zofran) 4 mg IV Q6H PRN PRN Reason: Nausea Stop: 05/03/19 16:14 Pantoprazole Sodium (Protonix) 40 mg PO BID [facility] Stop: 05/03/19 20:59 Last Admin: 04/04/19 08:04 Dose: 40 mg Documented by: Potassium Chloride (Klor-Con M10) 30 meq PO DAILY [facility] Stop: 05/04/19 08:59 Last Admin: 04/04/19 08:05 Dose: 30 meq Documented by: Sertraline HCl (Zoloft) 25 mg PO HS [facility] Stop: 05/03/19 20:59 Last Admin: 04/03/19 21:57 Dose: 25 mg Documented by: Spironolactone (Aldactone) 12.5 mg PO DAILY [facility] Stop: 05/04/19 08:59 Last Admin: 04/04/19 08:04 Dose: 12.5 mg Documented by: Tamsulosin HCl (Flomax) 0.4 mg PO DAILY [facility] Stop: 05/04/19 08:59 Last Admin: 04/04/19 08:04 Dose: 0.4 mg Documented by: Vitamin D (Vitamin D3) 1,000 units PO DAILY [facility] Stop: 05/04/19 08:59 Last Admin: 04/04/19 08:05 Dose: 1,000 units Documented by: Warfarin Sodium (Coumadin) 10 mg PO SuTuWeThSa@1600 [facility] Stop: 05/03/19 17:59 Last Admin: 04/03/19 18:31 Dose: 10 mg Documented by: Warfarin Sodium (Coumadin) 7.5 mg PO MoFr@1600 [facility] Stop: 05/06/19 15:59 Zolpidem Tartrate (Ambien) 5 mg PO HS PRN PRN Reason: Sleep Stop: 05/03/19 21:30 Last Admin: 04/03/19 22:00 Dose: 5 mg Documented by:
--- NOTE | 2019-04-04 13:30 | Family Medicine Progress Note ---
Date of Service April 04, 2019 Assessment & Plan (1) Acute on chronic systolic CHF (congestive heart failure): 79-year-old male history of multivessel coronary artery disease, [place] status post stents, biventricular pacemaker in April 2018 presents with acute on chronic congestive heart failure Acute on chronic congestive heart failure Cardiology consulted, appreciate recommendations Started on Lasix infusiondiuresing judiciously in the setting of acute on chronic kidney disease Low-sodium diet, fluid restrictions, continue education regarding diet restrictions Ischemic cardiomyopathy/hypertension/hyperlipidemia Echo from 06/2018 showed ejection fraction of 20 to 25%, severe diffuse hypokinesis, severe LV dysfunction and mild left ear Patient on Aldactone, furosemide, metolazone at homeholding in the setting of renal insufficiency Continue aspirin, clopidogrel, metoprolol 50 mg daily, atorvastatin 80 mg History of left ventricular apical thrombus Currently on Coumadin, 7.5 mg dosing Tuesday and Tuesday. 10 mg dosing on Tuesday, Tuesday, Tuesday, , Tuesday INR is therapeutic Type 2 diabetes, poorly controlled A1c is 10.3, continue diabetic education Continue insulin BPH Continue tamsulosin Depression/anxiety Continue sertraline CODE STATUS Full code DVT prophylaxis Coumadin (2) Depression: (3) BPH (benign prostatic hyperplasia): (4) Anxiety: (5) CKD (chronic kidney disease) stage 3, GFR 30-59 ml/min: (6) Left ventricular apical thrombus: (7) Hypertension: (8) HLD (hyperlipidemia): (9) CKD (chronic kidney disease), stage III: (10) Diabetes mellitus type II, uncontrolled: (11) BPH (benign prostatic hyperplasia): (12) CAD (coronary artery disease): Supervising Physician Co-Signing Physician Notes I personally examined the patient and verified all palencia points of history and exam, discussed case, and agree with decision making with Dr Eagle. Feeling better. Breathing better. Case discussed extensively with Dr. Fonseca, input appreciated. Patient notes that up until about a week ago he was eating significantly high in sodium, dietitian is been at the house and taught him quite a bit, and just over the last week or so he and his are trying to crack down on eating too much sodium. Prior to that (while he was gaining weight and fluid) he was eating things such as soup and ham salad. Vitals noted, in general he is awake and alert pleasant no distress. HEENT normocephalic atraumatic mucous members moist. Breathing is unlabored no accessory muscle use good effort. Skin shows no rashes no pallor or icterus. Acute on chronic systolic CHFotherwise known as acute heart failure with reduced EFappears to be improving. This appears to have mostly been brought on by dietary indiscretion. We reviewed this at length, it appears that just recently, after events have been set in place leading to this admission, he is finally starting to be aware that sodium intake is critical to staying out of decompensated CHF. He seems to be showing a good understanding of this and willingness to make dietary changes. We further discussion by discussing a "sodium budget" and keeping a tally trying to stay less than 1500 mg on a day. Otherwise as above. Subjective Patient states that he is dyspneic when walking more than 10 feet, he describes orthopnea and states that he has more swelling in both of his legs. This morning he is sitting comfortably in the chair and states that he is not dyspneic at rest, but he cannot get a full breath. He denies chest pain, palpitations. Review of Systems Review of Systems: All systems reviewed & are unremarkable except as noted in HPI & below Physical Exam Constitutional: WD/WN, vitals as above Eyes: PERRL, conjunctivae normal, anicteric sclerae ENMT: external ear and nose normal, oropharynx normal Neck: trachea midline, no thyromegaly Respiratory: normal respiratory effort, lungs clear to auscultation no respiratory distress, no labored breathing and does not use accessory muscles Auscultation: + diminished lung sounds (bilateral bases ) Cardiovascular: RRR, no murmur, no edema Extremities: + edema (bilateral lower extremity ) Gastrointestinal (Abdomen): normal bowel sounds, soft, nontender, no hepatosplenomegaly Musculoskeletal: no cyanosis or clubbing, extremities motor strength 5/5 Skin: no rashes, warm and dry Neurologic: PERRL, EOMI, accommodation nl, no face palsy, no dysarthria Psychiatric: A+Ox3, euthymic affect Results & Data Vital Signs (Past 12 Hours) Vital Signs Temp Pulse Pulse Resp BP Pulse Ox 04/04/19 11:48 36.4 C L 79 18 147/76 H 95 04/04/19 08:00 71 04/04/19 07:00 36.6 C 75 18 124/73 93 04/04/19 03:50 36.3 C L 79 20 132/79 96 Resident Activity Tracking Resident Involvement: Resident Care Provided Care Provided: Adult Hospital Medicine (1) BPH (benign prostatic hyperplasia) Lower urinary tract symptom presence: symptoms absent Qualified Code(s): N40.0 - Benign prostatic hyperplasia without lower urinary tract symptoms (2) HLD (hyperlipidemia) Hyperlipidemia type: unspecified Qualified Code(s): E78.5 - Hyperlipidemia, unspecified (3) Hypertension Hypertension type: essential hypertension Qualified Code(s): I10 - Essential (primary) hypertension
[2019-04-04] MEDS: METOPROLOL SUCC 50MG EXT REL TAB PO SCH (14:21)
[2019-04-04 15:32] LABS: BUN Creatinine Ratio 28.8 (10-20); Calcium 9.3 mg/dl (8.5-10.1); Creatinine Clr Calc Pharmacy 41.6 ml/min; Est GFR (African American) 34.9; Est GFR (Non-African American) 30.1; Potassium 3.8 mmol/L (3.5-5.1)
[2019-04-04] MEDS: WARFARIN SOD 10 MG TAB PO SCH (16:47)
[2019-04-04] MEDS ORDERED: POTASSIUM CHLORIDE 20 MEQ TABCR PO STA (18:20)
--- NOTE | 2019-04-04 18:22 | Communication Note ---
Date of Service: April 04, 2019 1500 bpm revealed stable creatinine of 2.05. K of 3.8. Continue furosemide gtt at 10 mg/h. Supplement potassium, 20 meq PO now. Check bmp in am.
[2019-04-04] MEDS: SERTRALINE HCL 50 MG TABLET PO SCH (20:35)
[2019-04-04] MEDS: ZOLPIDEM TARTRATE 5 MG TAB PO PRN (21:33)
[2019-04-05] MEDS: FUROSEMIDE 100 MG in DEXTROSE 5% 90 ML IV SCH ×3 (06:31→21:07)
[2019-04-05] MEDS: INSULIN ASPART 100 UNITS/ML 3 ML PEN SC SCH ×4 (07:42→20:57)
[2019-04-05] MEDS: INSULIN GLARGINE SOLOSTAR 100 UNITS/ML 3 ML PEN SC SCH ×2 (07:43→20:57)
[2019-04-05 08:05] LABS: INR 2.6 (0.9-1.1); Prothrombin Time 25.1 Seconds (9.0-12.0)
--- NOTE | 2019-04-05 08:17 | Family Medicine Progress Note ---
Date of Service April 05, 2019 Assessment & Plan (1) Acute on chronic systolic CHF (congestive heart failure): 79-year-old male history of multivessel coronary artery disease, [place] status post stents, biventricular pacemaker in April 2018 presents with acute on chronic congestive heart failure Acute on chronic congestive heart failure Cardiology consulted, appreciate recommendations Started on Lasix infusiondiuresing judiciously in the setting of acute on chronic kidney disease, increasing rate today Low-sodium diet, fluid restrictions, continue education regarding diet restrictions -Continuing low dose aldactone Ischemic cardiomyopathy/hypertension/hyperlipidemia Echo from 06/2018 showed ejection fraction of 20 to 25%, severe diffuse hypokinesis, severe LV dysfunction and mild left ear Patient on Aldactone, furosemide, metolazone at [place] in the setting of renal insufficiency Continue aspirin, clopidogrel, metoprolol 50 mg daily, atorvastatin 80 mg History of left ventricular apical thrombus Currently on Coumadin, 7.5 mg dosing Tuesday and Tuesday. 10 mg dosing on Tuesday, Tuesday, Tuesday, , Tuesday INR is therapeutic Type 2 diabetes, poorly controlled A1c is 10.3, continue diabetic education Continue insulin BPH Continue tamsulosin Depression/anxiety Continue sertraline CODE STATUS Full code DVT prophylaxis Coumadin (2) Depression: (3) BPH (benign prostatic hyperplasia): (4) Anxiety: (5) CKD (chronic kidney disease) stage 3, GFR 30-59 ml/min: (6) Left ventricular apical thrombus: (7) Hypertension: (8) HLD (hyperlipidemia): (9) Diabetes mellitus type II, uncontrolled: (10) CAD (coronary artery disease): Supervising Physician Co-Signing Physician Notes I personally examined the patient and verified all palencia points of history and exam, discussed case, and agree with decision making with Dr Eagle. Feeling better. Breathing better. Able to lay flat better - still gets orthopnea but took about 45mins rather than a fairly severe set of sx at 10mins as used to happen. continued to educate on sodium - he's really learning well. Vitals noted, in general he is awake and alert pleasant no distress. HEENT normocephalic atraumatic mucous members moist. Breathing is unlabored no accessory muscle use good effort. Skin shows no rashes no pallor or icterus. Acute on chronic systolic CHFotherwise known as acute heart failure with re duced EFappears to be improving. This appears to have mostly been brought on by dietary indiscretion. Ongoing education. He appears to be learning well. ?hopefully home 24-48hrs depending on ongoing diuresis. Otherwise as above. Subjective Patient is feeling much better today. States that he is getting a deeper breathe. He stayed in the chair throughout the evening. He is tolerating a low sodium diet. Review of Systems Review of Systems: All systems reviewed & are unremarkable except as noted in HPI & below Physical Exam Constitutional: WD/WN, vitals as above Eyes: PERRL, conjunctivae normal, anicteric sclerae ENMT: external ear and nose normal, oropharynx normal Neck: trachea midline, no thyromegaly Respiratory: normal respiratory effort, lungs clear to auscultation no respiratory distress, no labored breathing and does not use accessory muscles Auscultation: + diminished lung sounds (bilateral bases ) Cardiovascular: RRR, no murmur, no edema Extremities: + edema (bilateral lower extremity ) Gastrointestinal (Abdomen): normal bowel sounds, soft, nontender, no hepatosplenomegaly Musculoskeletal: no cyanosis or clubbing, extremities motor strength 5/5 Skin: no rashes, warm and dry Neurologic: PERRL, EOMI, accommodation nl, no face palsy, no dysarthria Psychiatric: A+Ox3, euthymic affect Results & Data Vital Signs (Past 12 Hours) Vital Signs Temp Pulse Pulse Resp BP Pulse Ox 04/05/19 07:35 36.3 C L 63 18 105/67 92 04/05/19 03:54 36.4 C L 66 19 118/74 97 04/05/19 00:02 36.4 C L 74 20 128/81 96 04/05/19 00:00 60 04/04/19 20:40 65 Resident Activity Tracking Resident Involvement: Resident Care Provided Care Provided: Adult Hospital Medicine (1) HLD (hyperlipidemia) Hyperlipidemia type: unspecified Qualified Code(s): E78.5 - Hyperlipidemia, unspecified (2) Hypertension Hypertension type: essential hypertension Qualified Code(s): I10 - Essential (primary) hypertension
[2019-04-05 08:21] LABS: BUN Creatinine Ratio 30.5 (10-20); Calcium 9.6 mg/dl (8.5-10.1); Creatinine Clr Calc Pharmacy 42.7 ml/min; Est GFR (African American) 36.4; Est GFR (Non-African American) 31.4; Potassium 3.4 mmol/L (3.5-5.1)
[2019-04-05] MEDS: CALCIUM 600MG + VIT D 400 IU TAB PO SCH (08:37)
[2019-04-05] MEDS: ATORVASTATIN 40 MG TAB PO SCH (08:37)
[2019-04-05] MEDS: TAMSULOSIN HCL 0.4 MG CAP PO SCH (08:37)
[2019-04-05] MEDS: ASPIRIN 81 MG ECTAB PO SCH (08:37)
[2019-04-05] MEDS: PANTOprazole 40 MG TAB PO SCH ×2 (08:37→20:56)
[2019-04-05] MEDS: CHOLECALCIFEROL 1,000 UNITS TAB PO SCH (08:37)
[2019-04-05] MEDS: CALCIUM POLYCARBOPHIL 625MG TAB PO SCH (08:38)
[2019-04-05] MEDS: SPIRONOLACTONE 25 MG TAB PO SCH (08:38)
[2019-04-05] MEDS: METOPROLOL SUCC 50MG EXT REL TAB PO SCH (08:38)
[2019-04-05] MEDS: POTASSIUM CHLORIDE 10 MEQ TABCR PO SCH (08:39)
[2019-04-05] MEDS: DOCUSATE SODIUM 100 MG CAP PO SCH (08:39)
--- NOTE | 2019-04-05 09:50 | Cardiology Progress Note ---
Date of Service April 05, 2019 Assessment & Plan (1) Acute on chronic systolic CHF (congestive heart failure): increase furosemide gtt to 15 m/hr. Continue ASA, metoprolol, statin, low dose aldactone (due to kidney dysfunction). Potassium 3.4 this am. Creat stable. Replace K with 30 meq this am 40 meq this afternoon, repeat BMP in am. (2) Ischemic cardiomyopathy: as above (3) Left ventricular apical thrombus: and h/o PAF. Continue coumadin, INR 2.6 today. (4) CKD (chronic kidney disease) stage 3, GFR 30-59 ml/min: Renal function stable. (5) Biventricular cardiac pacemaker in situ: Paced. Has BiV pacer, pt had elected against AICD. DVT proph: on coumadin Subjective CC:follow up edema, shortness of breath, orthopnea Subjective: Pt slept in recliner last night. Notes breathing better than prior to admisison. Telemetry reveals SR with V pacing in the 70s, and occasional PVCs. Review of Systems Review of Systems: All systems reviewed & are unremarkable except as noted in HPI & below Physical Exam Constitutional: + ill appearing (chronically ill in appearance); no acute distress Respiratory: Auscultation: + diminished lung sounds (mildly decreased BS at the bases); no crackles and no rales Cardiovascular: Extremities: + edema (1-2+ LE edema) Gastrointestinal (Abdomen): normal bowel sounds, soft, nontender, no hepatosplenomegaly Skin: no rashes, warm and dry Neurologic: PERRL, EOMI, accommodation nl, no face palsy, no dysarthria moves all extremities; no focal motor deficits Results & Data Vital Signs (Past 12 Hours) Vital Signs Temp Pulse Pulse Resp BP Pulse Ox 04/05/19 07:35 36.3 C L 63 18 105/67 92 04/05/19 03:54 36.4 C L 66 19 118/74 97 04/05/19 00:02 36.4 C L 74 20 128/81 96 04/05/19 00:00 60 Laboratory Results Coagulation 04/05/19 Range/Units 07:07 PT 25.1 H (9.0-12.0) Seconds Comprehensive Metabolic Panel 04/04/19 04/05/19 Range/Units 14:53 07:07 Sodium 139 141 (136-145) mmol/L Potassium 3.8 3.4 L (3.5-5.1) mmol/L Chloride 98 99 (98-107) mmol/L Carbon Dioxide 32 33 H (21-32) mmol/L BUN 59 H 60 H (7-18) mg/dl Creatinine 2.05 H 1.98 H (0.6-1.4) mg/dl Glucose 207 H 90 (70-99) mg/dl Calcium 9.3 9.6 (8.5-10.1) mg/dl Intake and Output 04/04/19 04/05/19 04/05/19 22:59 06:59 14:59 Intake Total 788.333 / 1137.833 99.5 / 1137.833 Output Total 976 / 2977 1101 / 2977 Balance -187.667 / -1839.167 -1001.5 / -1839.167 Intake: IV 93.333 / 192.833 99.5 / 192.833 Lasix 100 mg In D5 90 ml @ 10 93.333 / 192.833 99.5 / 192.833 MG/HR 10 mls/hr IV .Q10H [facility] Rx #:[id number] Oral 695 / 945 Output: Urine 975 / 2975 1100 / 2975 # Bowel Movements 1 / 2 1 / 2 Other: Other Intake Source [facility] Weight 132.4 kg Medications Administered Current Inpatient Medications Acetaminophen (Tylenol) 650 mg PO Q4H PRN PRN Reason: Pain or Fever Stop: 05/03/19 16:14 Last Admin: 04/04/19 20:40 Dose: 650 mg Documented by: Aspirin (Ecotrin Ectab) 81 mg PO DAILY [facility] Stop: 05/04/19 08:59 Last Admin: 04/05/19 08:37 Dose: 81 mg Documented by: Atorvastatin Calcium (Lipitor) 80 mg PO DAILY [facility] Stop: 05/04/19 08:59 Last Admin: 04/05/19 08:37 Dose: 80 mg Documented by: Calcium Polycarbophil (Fibercon) 1 tab PO DAILY [facility] Stop: 05/04/19 08:59 Last Admin: 04/05/19 08:38 Dose: 1 tab Documented by: Dextrose (Dextrose 50%) 25 - 50 ml IV UD PRN; Protocol PRN Reason: Hypoglycemia Protocol Stop: 05/03/19 16:14 Docusate Sodium (Colace) 200 mg PO DAILY [facility] Stop: 05/04/19 08:59 Last Admin: 04/05/19 08:39 Dose: 200 mg Documented by: Glucagon (Glucagen) 1 mg SQ UD PRN; Protocol PRN Reason: Hypoglycemia Protocol Stop: 05/03/19 16:14 Glucose (Dex4 Glucose) 4 - 8 tabs PO UD PRN; Protocol PRN Reason: Hypoglycemia Protocol Stop: 05/03/19 16:14 Glucose (Glucose 40%) 15 - 30 gm PO UD PRN; Protocol PRN Reason: Hypoglycemia Protocol Stop: 05/03/19 16:14 Furosemide 100 mg/ Dextrose 100 mls @ 10 mls/hr IV .Q10H [facility] Stop: 05/04/19 10:54 Last Admin: 04/05/19 06:31 Dose: 10 mg/hr, 10 mls/hr Documented by: Insulin Aspart (Novolog Flexpen) 0 units SC ACHS [facility] Stop: 05/03/19 16:29 Last Admin: 04/05/19 07:42 Dose: 13 units Documented by: Insulin Glargine (Lantus Solostar Pen) 60 units SC Q12 [facility] Stop: 05/03/19 20:59 Last Admin: 04/05/19 07:43 Dose: 60 units Documented by: Magnesium Hydroxide (Milk Of Magnesia) 30 ml PO Q12H PRN PRN Reason: Constipation Stop: 05/03/19 16:14 Metoprolol Succinate (Toprol Xl) 50 mg PO QAM [facility] Stop: 05/04/19 13:29 Last Admin: 04/05/19 08:38 Dose: 50 mg Documented by: Miscellaneous (Carbohydrates For Hypoglycemia) 15 - 30 gm PO UD PRN PRN Reason: Hypoglycemia Treatment Stop: 05/03/19 16:14 Multivitamins/Minerals (Caltrate Plus) 1 tab PO DAILY [facility] Stop: 05/04/19 08:59 Last Admin: 04/05/19 08:37 Dose: 1 tab Documented by: Nitroglycerin (Nitrostat) 0.4 mg SL UD PRN PRN Reason: Chest Pain Stop: 05/03/19 16:14 Ondansetron HCl (Zofran) 4 mg IV Q6H PRN PRN Reason: Nausea Stop: 05/03/19 16:14 Pantoprazole Sodium (Protonix) 40 mg PO BID [facility] Stop: 05/03/19 20:59 Last Admin: 04/05/19 08:37 Dose: 40 mg Documented by: Potassium Chloride (Klor-Con M10) 30 meq PO DAILY [facility] Stop: 05/04/19 08:59 Last Admin: 04/05/19 08:39 Dose: 30 meq Documented by: Potassium Chloride (Klor-Con M20) 40 meq PO ONE ONE Stop: 04/05/19 14:01 Sertraline HCl (Zoloft) 25 mg PO HS [facility] Stop: 05/03/19 20:59 Last Admin: 04/04/19 20:35 Dose: 25 mg Documented by: Spironolactone (Aldactone) 12.5 mg PO DAILY [facility] Stop: 05/04/19 08:59 Last Admin: 04/05/19 08:38 Dose: 12.5 mg Documented by: Tamsulosin HCl (Flomax) 0.4 mg PO DAILY [facility] Stop: 05/04/19 08:59 Last Admin: 04/05/19 08:37 Dose: 0.4 mg Documented by: Vitamin D (Vitamin D3) 1,000 units PO DAILY [facility] Stop: 05/04/19 08:59 Last Admin: 04/05/19 08:37 Dose: 1,000 units Documented by: Warfarin Sodium (Coumadin) 10 mg PO [email or web address] [facility] Stop: 05/03/19 17:59 Last Admin: 04/04/19 16:47 Dose: 10 mg Documented by: Warfarin Sodium (Coumadin) 7.5 mg PO [email or web address] [facility] Stop: 05/06/19 15:59 Zolpidem Tartrate (Ambien) 5 mg PO HS PRN PRN Reason: Sleep Stop: 05/03/19 21:30 Last Admin: 04/04/19 21:33 Dose: 5 mg Documented by:
[2019-04-05] MEDS ORDERED: POTASSIUM CHLORIDE 20 MEQ TABCR PO ONE (14:00)
[2019-04-05] MEDS: WARFARIN SOD 10 MG TAB PO SCH (17:08)
[2019-04-05] MEDS: SERTRALINE HCL 50 MG TABLET PO SCH (20:55)
[2019-04-05] MEDS: ZOLPIDEM TARTRATE 5 MG TAB PO PRN (21:00)
[2019-04-06] MEDS: FUROSEMIDE 100 MG in DEXTROSE 5% 90 ML IV SCH ×2 (03:46→10:42)
[2019-04-06] MEDS: ATORVASTATIN 40 MG TAB PO SCH (07:57)
[2019-04-06] MEDS: CALCIUM 600MG + VIT D 400 IU TAB PO SCH (07:58)
[2019-04-06] MEDS: PANTOprazole 40 MG TAB PO SCH (07:58)
[2019-04-06] MEDS: SPIRONOLACTONE 25 MG TAB PO SCH (07:58)
[2019-04-06] MEDS: ASPIRIN 81 MG ECTAB PO SCH (07:58)
[2019-04-06] MEDS: CHOLECALCIFEROL 1,000 UNITS TAB PO SCH (07:58)
[2019-04-06] MEDS: TAMSULOSIN HCL 0.4 MG CAP PO SCH (07:59)
[2019-04-06] MEDS: METOPROLOL SUCC 50MG EXT REL TAB PO SCH (07:59)
[2019-04-06] MEDS: CALCIUM POLYCARBOPHIL 625MG TAB PO SCH (07:59)
[2019-04-06] MEDS: POTASSIUM CHLORIDE 10 MEQ TABCR PO SCH (07:59)
[2019-04-06 08:03] LABS: INR 3.1 (0.9-1.1)
[2019-04-06 08:05] LABS: BUN Creatinine Ratio 29.1 (10-20); Calcium 9.7 mg/dl (8.5-10.1); Creatinine Clr Calc Pharmacy 43.1 ml/min; Est GFR (African American) 36.9; Est GFR (Non-African American) 31.8; Potassium 3.5 mmol/L (3.5-5.1)
[2019-04-06] MEDS: INSULIN ASPART 100 UNITS/ML 3 ML PEN SC SCH ×2 (08:09→11:53)
[2019-04-06] MEDS: INSULIN GLARGINE SOLOSTAR 100 UNITS/ML 3 ML PEN SC SCH (08:55)
[2019-04-06] MEDS: DOCUSATE SODIUM 100 MG CAP PO SCH (08:56)
[2019-04-06] MEDS ORDERED: POTASSIUM CHLORIDE 20 MEQ TABCR PO STA (10:29)
--- NOTE | 2019-04-06 10:45 | Cardiology Progress Note ---
Date of Service April 06, 2019 Assessment & Plan (1) Acute on chronic systolic CHF (congestive heart failure): (2) Ischemic cardiomyopathy: (3) Left ventricular apical thrombus: (4) CKD (chronic kidney disease) stage 3, GFR 30-59 ml/min: The patient is down 3 kg compared to admission, 3.5 L of urine output in the last 24 hours, negative fluid balance of 1.8 L, and was -1.8 L a day before and -1.2 L the day before that. He had spent 24 hours on an infusion of furosemide at 10 mg/h, has been on 50 mg/h for the last 24 hours. This is a somewhat conservative dose for him, but it was well-tolerated from a blood pressure standpoint, and his kidney function is actually improved compared to admission. Will replace potassium orally. He had 30 mg already ordered as a standing dose this morning, and I have ordered an additional 40 mg x 1. Disposition: I offered for the patient to remain in the hospital versus be discharged. He states that he is feeling much improved, and he is eager to be discharge to home. He is to continue triple therapy with aspirin, clopidogrel, and Coumadin. As noted previously, the aspirin and clopidogrel is due to his complex PCI including left main stenting, the Coumadin is due to his history of left ventricular mural thrombus. Discharge with plans of torsemide 60 mg daily in the morning, 40 mg in the afternoon. Although the patient's admission list includes that he was on metolazone 2.5 mg twice daily, he states that he has only ever taking this once at home. I would keep this as a treatment that he can perform once per week at present. Would plan for him to take the torsemide 60 mg a.m., 40 mg every afternoon, and to take metolazone 2.5 mg either 30 minutes prior to with his a.m. torsemide every Tuesday. He is on potassium chloride 20 mEq a day at home. On days when he takes metolazone, will take 40 mg of potassium chloride. Remain on low-dose of spironolactone 12.5 mg daily. This dose has not been titrated up due to his chronic kidney disease. I will help arrange close outpatient follow-up at [facility]. Subjective Chief complaint: Follow-up shortness of breath, lower extremity edema, orthopnea Subjective: Patient still sleeping in the bedside recliner last night. But he states he feels work is improved compared to admission. He recently ambulated to the bathroom and he states his breathing is improved compared to his recent baseline. His legs still have trace edema, but they are markedly improved. Telemetry reveals sinus rhythm with ventricular pacing. Physical Exam Constitutional: + ill appearing (Chronically ill in appearance, no acute distress) Respiratory: Auscultation: + diminished lung sounds (Mildly decreased breath sounds the bases, trending toward improvement); no crackles and no rales Cardiovascular: Rate/Rhythm: regular rate Heart Sounds: no murmur Vessels: no JVD Extremities: + edema (Trace lower extremity edema lower legs, improved compared to the prior 2 days) Gastrointestinal (Abdomen): normal bowel sounds, soft, nontender, no hepatosplenomegaly Skin: no rashes, warm and dry Neurologic: PERRL, EOMI, accommodation nl, no face palsy, no dysarthria Results & Data Vital Signs (Past 12 Hours) Vital Signs Temp Pulse Resp BP Pulse Ox 04/06/19 07:37 36.5 C 74 20 121/71 94 04/06/19 04:20 36.4 C L 85 20 138/78 96 04/05/19 23:17 36.6 C 75 22 107/63 95 Laboratory Results Coagulation INR 3.1 04/06/19 Range/Units 07:20 PT 29.0 H (9.0-12.0) Seconds Comprehensive Metabolic Panel 04/06/19 Range/Units 07:20 Sodium 139 (136-145) mmol/L Potassium 3.5 (3.5-5.1) mmol/L Chloride 98 (98-107) mmol/L Carbon Dioxide 35 H (21-32) mmol/L BUN 57 H (7-18) mg/dl Creatinine 1.96 H (0.6-1.4) mg/dl Glucose 99 (70-99) mg/dl Calcium 9.7 (8.5-10.1) mg/dl Intake and Output 04/05/19 04/06/19 04/06/19 22:59 06:59 14:59 Intake Total 340 / 1485.583 299.75 / 1485.583 Output Total 951 / 3351 1350 / 3351 Balance -611 / -1865.417 -1050.25 / -1865.417 Intake: IV 100 / 295.583 99.75 / 295.583 Lasix 100 mg In D5 90 ml @ 15 100 / 295.583 99.75 / 295.583 MG/HR 15 mls/hr IV .Q6H40M [facility] Rx#:[id number] Oral 240 / 1190 200 / 1190 Output: Urine 950 / 3350 1350 / 3350 # Bowel Movements / Other: # Unmeasured Voids 1 Medications Administered Current Inpatient Medications Acetaminophen (Tylenol) 650 mg PO Q4H PRN PRN Reason: Pain or Fever Stop: 05/03/19 16:14 Last Admin: 04/04/19 20:40 Dose: 650 mg Documented by: Aspirin (Ecotrin Ectab) 81 mg PO DAILY [facility] Stop: 05/04/19 08:59 Last Admin: 04/06/19 07:58 Dose: 81 mg Documented by: Atorvastatin Calcium (Lipitor) 80 mg PO DAILY [facility] Stop: 05/04/19 08:59 Last Admin: 04/06/19 07:57 Dose: 80 mg Documented by: Calcium Polycarbophil (Fibercon) 1 tab PO DAILY [facility] Stop: 05/04/19 08:59 Last Admin: 04/06/19 07:59 Dose: 1 tab Documented by: Dextrose (Dextrose 50%) 25 - 50 ml IV UD PRN; Protocol PRN Reason: Hypoglycemia Protocol Stop: 05/03/19 16:14 Docusate Sodium (Colace) 200 mg PO DAILY [facility] Stop: 05/04/19 08:59 Last Admin: 04/06/19 08:56 Dose: 200 mg Documented by: Glucagon (Glucagen) 1 mg SQ UD PRN; Protocol PRN Reason: Hypoglycemia Protocol Stop: 05/03/19 16:14 Glucose (Dex4 Glucose) 4 - 8 tabs PO UD PRN; Protocol PRN Reason: Hypoglycemia Protocol Stop: 05/03/19 16:14 Glucose (Glucose 40%) 15 - 30 gm PO UD PRN; Protocol PRN Reason: Hypoglycemia Protocol Stop: 05/03/19 16:14 Furosemide 100 mg/ Dextrose 100 mls @ 15 mls/hr IV .Q6H40M [facility] Stop: 05/04/19 10:54 Last Admin: 04/06/19 03:46 Dose: 15 mg/hr, 15 mls/hr Documented by: Insulin Aspart (Novolog Flexpen) 0 units SC ACHS [facility] Stop: 05/03/19 16:29 Last Admin: 04/06/19 08:09 Dose: 7 units Documented by: Insulin Glargine (Lantus Solostar Pen) 60 units SC Q12 [facility] Stop: 05/03/19 20:59 Last Admin: 04/06/19 08:55 Dose: 60 units Documented by: Magnesium Hydroxide (Milk Of Magnesia) 30 ml PO Q12H PRN PRN Reason: Constipation Stop: 05/03/19 16:14 Metoprolol Succinate (Toprol Xl) 50 mg PO QAM [facility] Stop: 05/04/19 13:29 Last Admin: 04/06/19 07:59 Dose: 50 mg Documented by: Miscellaneous (Carbohydrates For Hypoglycemia) 15 - 30 gm PO UD PRN PRN Reason: Hypoglycemia Treatment Stop: 05/03/19 16:14 Multivitamins/Minerals (Caltrate Plus) 1 tab PO DAILY [facility] Stop: 05/04/19 08:59 Last Admin: 04/06/19 07:58 Dose: 1 tab Documented by: Nitroglycerin (Nitrostat) 0.4 mg SL UD PRN PRN Reason: Chest Pain Stop: 05/03/19 16:14 Ondansetron HCl (Zofran) 4 mg IV Q6H PRN PRN Reason: Nausea Stop: 05/03/19 16:14 Pantoprazole Sodium (Protonix) 40 mg PO BID [facility] Stop: 05/03/19 20:59 Last Admin: 04/06/19 07:58 Dose: 40 mg Documented by: Potassium Chloride (Klor-Con M10) 30 meq PO DAILY [facility] Stop: 05/04/19 08:59 Last Admin: 04/06/19 07:59 Dose: 30 meq Documented by: Potassium Chloride (Klor-Con M20) 40 meq PO NOW STA Stop: 04/06/19 10:30 Sertraline HCl (Zoloft) 25 mg PO HS [facility] Stop: 05/03/19 20:59 Last Admin: 04/05/19 20:55 Dose: 25 mg Documented by: Spironolactone (Aldactone) 12.5 mg PO DAILY [facility] Stop: 05/04/19 08:59 Last Admin: 04/06/19 07:58 Dose: 12.5 mg Documented by: Tamsulosin HCl (Flomax) 0.4 mg PO DAILY [facility] Stop: 05/04/19 08:59 Last Admin: 04/06/19 07:59 Dose: 0.4 mg Documented by: Vitamin D (Vitamin D3) 1,000 units PO DAILY [facility] Stop: 05/04/19 08:59 Last Admin: 04/06/19 07:58 Dose: 1,000 units Documented by: Warfarin Sodium (Coumadin) 10 mg PO SuTuWeThSa@1600 [facility] Stop: 05/03/19 17:59 Last Admin: 04/05/19 17:08 Dose: 10 mg Documented by: Warfarin Sodium (Coumadin) 7.5 mg PO MoFr@1600 [facility] Stop: 05/06/19 15:59 Zolpidem Tartrate (Ambien) 5 mg PO HS PRN PRN Reason: Sleep Stop: 05/03/19 21:30 Last Admin: 04/05/19 21:00 Dose: 5 mg Documented by:
--- NOTE | 2019-04-06 14:50 | Discharge Summary ---
Date of Service April 06, 2019 Admission HPI Per Admitting Provider 79 y/o M c/o SOB and fluid retention. Pt states he saw his cardiology PA, Ken Tiwari last Tuesday for a routine f/u. He was doing fine at that time. Starting the next day, he felt like he was starting to retain fluid in his LE and abd. [facility] home nursing saw pt on 03/27 and was given lasix IV 80mg. This was repeated again on 03/29. Pt continued to feel he was retaining fluid and was becoming SOB with ambulation and eventually at rest. He was seen yesterday by [facility] home nursing and given another 160mg IV lasix. His sx persisted so he came to the ED. He has gained about 2 lbs. No chest pain. He is urinating more than usual, but not what he feels he should with the additional lasix. At some point his spironolactone was changed from MWF dosing to QD as well. Pt denies fever, abd pain, n/v/c/d, LE pain. He is eating without issue. He states that he no longer adds any salt to his food. He states that they try to avoid foods with salt in it and has stopped eating hot dogs, but still has regular soup and ham salad. He states they were trying to use Meals on Wheels, but that there was some issue with requesting low sodium meals and they were getting regular sodium meals. He states he is always thirsty and drinks a lot of water. He tries to stay around his 40oz limit, but does go over at times. Pt was given lasix 120mg IV in the ED. He is feeling better and not SOB at rest now. He has not tried to ambulate yet. Still feels fluid retention, especially in his abd. Principal Diagnosis acute on chronic systolic CHF Discharge Exam General Appearance: WD/WN, morbidly obese, no apparent distress Eyes: normal inspection, EOMI, sclerae normal ENT: normal ENT inspection, hearing grossly normal, pharynx normal Neck: supple, no adenopathy, trachea midline Respiratory/Chest: chest non-tender, lungs clear apically with normal breath sounds, bibasilar diminished breath sounds, no wheeze, no respiratory distress, no accessory muscle use Cardiovascular: regular rate, rhythm, no murmur, normal peripheral pulses, +1 edema of lower extremities bilaterally Abdomen / GI: normal bowel sounds, non tender, soft, no organomegaly Extremities: normal inspection, no calf tenderness, normal capillary refill, + pedal edema Neurologic/Psychiatric: no gross motor/sensory deficits, alert, normal mood/affect, oriented x 3 Skin: normal color, warm/dry Discharge Data Allergies Allergy/AdvReac Type Severity Reaction Status Date / Time No Known Allergies Allergy Verified 07/10/18 10:02 Consultations 04/03/19 13:04 ED Decision to Admit Stat 04/03/19 16:15 Consult Cardiology Routine Consult Case Management - Discharge Planning Routine Ordered Studies 04/03/19 16:15 US abdomen ltd ascites Stat 04/03/19 18:48 US effusion-chest/mediastinum Routine Hospital Course (1) Acute on chronic systolic CHF (congestive heart failure): 79-year-old male history of multivessel coronary artery disease, AK status post stents, biventricular pacemaker in April 2018 presents with acute on chronic congestive heart failure Acute on chronic congestive heart failure Cardiology consulted, appreciate recommendations IV furosemide infusion while in hospital judicious diuresing in setting of acute on chronic kidney disease, although Cr improved some with diuresis The patient was down 3 kg compared to admission, 3.5 L of urine output in the last 24 hours, negative fluid balance of 1.8L, and was -1.8L a day before and - 1.2L the day before that. Discharge plans: - Torsemide 60mg qAM, 40mg qPM - Metolazone 2.5mg 30 minutes prior to AM torsemide every Tuesday ONLY - Continue KCl 20mEq daily, except 40mEq on Tuesday with metolazone - Continue low-dose of spironolactone 12.5mg daily (dose not been titrated due t o CKD) - Close outpatient follow-up at [facility]. - Educated on and encouraged for low-sodium diet (<1500mg daily), fluid restrictions (<1.5L/50oz) Ischemic cardiomyopathy/hypertension/hyperlipidemia Echo from 06/2018 showed ejection fraction of 20 to 25%, severe diffuse hypokinesis, severe LV dysfunction and mild left Continue triple therapy with aspirin, clopidogrel, metoprolol 50mg daily, atorvastatin 80mg History of left ventricular apical thrombus Continue warfarin 7.5 mg dosing Tuesday and Tuesday and 10 mg dosing on Tuesday, Tuesday, Tuesday, , Tuesday. INR is therapeutic Type 2 diabetes, poorly controlled A1c is 10.3, continue diabetic education Continue home insulin regimen BPH Continue tamsulosin Depression/anxiety Continue sertraline GERD - Continue omeprazole CODE STATUS Full code (2) Depression: (3) BPH (benign prostatic hyperplasia): (4) Anxiety: (5) CKD (chronic kidney disease) stage 3, GFR 30-59 ml/min: (6) Left ventricular apical thrombus: (7) Hypertension: (8) HLD (hyperlipidemia): (9) Diabetes mellitus type II, uncontrolled: (10) CAD (coronary artery disease): Total Time Total Time Spent Total Time Spent (In Minutes): <30 Discharge Plan Discharge Items Patient Disposition: Home - Self-Care Reason For Visit: CHF EXACERBATION Discharge Diagnosis: CHF exacerbation Condition: Fair Discharge Goals: Decrease discomfort, Improve disease control, Improve function, Improve nutritional status and Therapeutic intervention Activity: Resume your previous activity Non-emergency contact: Primary Care Provider and Correctional Classification Counselor Call non-emergency contact if: you have any medication questions and your symptoms worsen Follow-up/Referrals: Ken Tiwari [Physician Assistant City Attorney] - Anamaria Max PA-C [Primary Care Provider] - Diet: Heart Healthy and Low Sodium (2gm) Addtl Provider Instructions: Congestive heart failure -Your heart is not as good at squeezing blood through your body's circulation. - When you drink extra water or eat too much salt/sodium, the extra fluid leaks into the lung. This makes you feel short of breath and swollen (weight gain). - In the hospital IV drip was used to try to pull out some of the extra fluid in the body. - Once home, well need to work to prevent this happening again by aggressive medications and lifestyle measures including low sodium and limiting fluids. Medications: - Continue triple therapy with aspirin, clopidogrel, and warfarin (Coumadin), and home dose of metoprolol (Toprol) - Take torsemide 60mg every morning and 40mg in the afternoon. This will help to continue pulling out the fluid. - Take metolazone 2.5mg every Tuesday ONLY. Take either 30 minutes before (ideally) OR with the morning torsemide dose. - Because both torsemide and metolazone cause the body to lose potassium, take the potassium chloride 20mEq every, except increase to 40mg on Mondays with the metolazone. - Continue spironolactone 12.5 mg daily. - Because these medications are so important to help prevent fluid build up please make sure to talk with your home health nurse or PCP if you are having any trouble with your medicines. - Limit water to 50 oz a day if you can so that there is not too much water your body needs to pull off. Tell your carpenter supervisor if you are able to do this or if another limit would be more suitable. - Reduce sodium (also known as salt) as it also forces the body to hold onto water. Think of having a 1500mg budget of sodium a day, and with every food you eat, you have a smaller remaining budget that day. Avoid adding additional salt to your food. When reading labels, looking at the amount of salt listed, but also look at what the serving size is! Sometimes, the salt they have listed is only a small portion of the food, and when you eat the whole package, you have actually eaten double or triple the amount of salt that was listed! Continue all other medications as before. Prescriptions: New warfarin [Coumadin] 10 mg Tablet 10 mg PO SuTuWeThSa@1600 Qty: 30 RF: 0 warfarin [Coumadin] 7.5 mg Tablet 7.5 mg PO MoFr@1600 Qty: 30 RF: 0 metoprolol succinate 50 mg Tablet Extended Release 24 Hr 50 mg PO QAM Qty: 30 RF: 0 potassium chloride 20 mEq tablet extended release 20 meq PO DAILY Qty: 45 RF: 0 Continued atorvastatin [Lipitor] 80 mg Tablet 80 mg PO DAILY RF: 0 aspirin 81 mg Tablet,Delayed Release (Dr/Ec) 81 mg PO DAILY RF: 0 tamsulosin 0.4 mg Capsule 0.4 mg PO DAILY RF: 0 nitroglycerin [Nitrostat] 0.4 mg Tablet, Sublingual 0.4 mg Sublingual DIRECTED PRN (Reason: Chest Pain) RF: 0 docusate sodium 100 mg Capsule 200 mg PO DAILY RF: 0 omeprazole 20 mg Capsule,Delayed Release(Dr/Ec) 20 mg PO BID RF: 0 Calcium 600 + D(3) 600 mg calcium- 200 unit Capsule 1 tab PO DAILY RF: 0 cholecalciferol (vitamin D3) [Vitamin D3] 1,000 unit Tablet 1 tab PO DAILY RF: 0 calcium polycarbophil 625 mg Tablet 1 tab PO DAILY RF: 0 Novolog Flexpen U-100 Insulin 100 unit/mL insulin pen 30 unit SC ACHS RF: 0 Lantus Solostar U-100 Insulin 100 unit/mL (3 mL) insulin pen 60 unit SC Q12 RF: 0 melatonin 5 mg Tablet 15 mg PO HS RF: 0 spironolactone 25 mg Tablet 12.5 mg PO DAILY RF: 0 sertraline 25 mg Tablet 25 mg PO DAILY RF: 0 Changed metolazone 2.5 mg Tablet 2.5 mg PO DIRECTED Qty: 14 RF: 0 torsemide 20 mg Tablet 40 mg PO QPM Qty: 0 RF: 0 torsemide 20 mg Tablet 60 mg PO QAM Qty: 0 RF: 0 Discontinued warfarin 5 mg Tablet 5 mg PO DAILY RF: 0 potassium chloride 20 mEq Tablet,Er Particles/Crystals 20 meq PO DAILY RF: 0 Stand-Alone Forms: [facility] Discharge Orders: Discharge Order (Routine); Ordered 04/06/19 Ordered By: Fabiola Johnson Admission Data Admit Date/Time: 04/03/19 14:32 Attending Provider: Harsh Cochran Admit Provider: Vashti Figueroa Primary Care Provider: Anamaria Max Other Providers: Vashti Figueroa ; Vlad Fonseca Service: Telemetry Medical Other Interventions: Discharge Summary Assessment (RN) Last Done: 04/06/19 14:53 DC Date/Time DO NOT enter until pt leaves facility: 04/06/19 15:53 Supervising Physician Co-Signing Physician Notes I personally examined the patient and verified all palencia points of history and exam, discussed case, and agree with decision making with Dr Johnson. Feeling better. Breathing better. Feeling up to going home. Cardiology input appreciated. Vitals noted, in general he is awake and alert pleasant no distress. HEENT normocephalic atraumatic mucous members moist. Breathing is unlabored no accessory muscle use good effort. Skin shows no rashes no pallor or icterus. Acute on chronic systolic CHFotherwise known as acute heart failure with reduced EFappears to be improving. This appears to have mostly been brought on by dietary indiscretion, and he seems to be learning quite well about sodium avoidance. Ongoing education as an outpatient. Stable for discharge to home. Otherwise as above. Resident Activity Tracking Resident Involvement: Resident Care Provided Care Provided: Adult Hospital Medicine
[2019-04-06] MEDS ORDERED: WARFARIN SOD 7.5 MG TAB PO SCH (16:00)
[2019-04-06] MEDS ORDERED: INSULIN GLARGINE SOLOSTAR 100 UNITS/ML 3 ML PEN SC SCH (21:00)
[2019-04-07] MEDS ORDERED: INSULIN GLARGINE SOLOSTAR 100 UNITS/ML 3 ML PEN SC SCH (09:00)
== END 2019-04-06 15:53 | disposition home or self-care (01) | DRG 291 ==
LOC: ED 11:29 → SUATTDRO 14:32 → 2W 14:32 → 2S 04-04 08:30

== ENCOUNTER 2019-04-25 10:14 | Inpatient (IN) ==
[2019-04-25] MEDS ORDERED: FUROSEMIDE 80 MG in SYRINGE 0 ML IV STA (10:27)
[2019-04-25 10:35] LABS: Basophils # (auto) 0.02 K/uL (0-0.2); Basophils % (auto) 0.2 %; Eosinophils # (auto) 0.14 K/uL (0-0.5); Eosinophils % (auto) 1.5 %; Hematocrit (blood only) 36.6 % (42-52); Immature Granulocytes # (auto) 0.03 K/uL (0.00-0.02); Immature Granulocytes % (auto) 0.3 %; Lymphocytes # (auto) 1.05 K/uL (1.2-3.4); Mean Corpuscular Hgb Conc 32.8 g/dL (32-36); Mean Corpuscular Volume 97.3 fL (80-100); Mean Platelet Volume 11.4 fL (7.4-10.4); Monocytes # (auto) 0.97 K/uL (0.11-0.59); Monocytes % (auto) 10.2 %; Neutrophils # (auto) 7.34 K/uL (1.4-6.5); Neutrophils % (auto) 76.8 %; Platelet Count 179 K/uL (130-400); RDW Coefficient of Variation 15.4 % (11.5-14.5); RDW Standard Deviation 54.3 fL (36.4-46.3); Red Blood Count 3.76 M/uL (4.7-6.1); White Blood Count 9.55 K/uL (4.8-10.8)
--- NOTE | 2019-04-25 10:44 | XRay Report ---
XR chest 1V portable HISTORY: Dyspnea COMPARISON: Chest 04/03/2019. FINDINGS: Cardiomegaly with progression of the mild interstitial pulmonary edema. Small bilateral ple ural effusions and bibasilar densities have also slightly progressed. The heart remains enlarged. Lef t-sided pacemaker/defibrillator is noted. No pneumothorax. IMPRESSION: Progression of the mild interstitial pulmonary edema and small bilateral pleural effusion/densities. Electronically signed by: Rishi Penny M.D. 04/25/2019 10:43 AM
[2019-04-25 10:57] LABS: Partial Thromboplastin Ratio 1.3; Partial Thromboplastin Time 35.6 Seconds (21.0-31.0); Prothrombin Time 34.5 Seconds (9.0-12.0)
[2019-04-25 11:05] LABS: INR 3.7 (0.9-1.1)
[2019-04-25 11:08] LABS: Albumin Globulin Ratio 0.8 (0.9-2); Albumin Level 3.1 gm/dl (3.4-5.0); BUN Creatinine Ratio 31.4 (10-20); Bilirubin,Total 0.8 mg/dl (0.2-1); Calcium 9.1 mg/dl (8.5-10.1); Creatinine Clr Calc Pharmacy 37.9 ml/min; Est GFR (African American) 30.7; Est GFR (Non-African American) 26.5; Globulin 3.9 gm/dl (2.5-4.0); Magnesium 2.4 mg/dl (1.8-2.4); Potassium 4.3 mmol/L (3.5-5.1); Troponin I 2.75 ng/ml (0-0.045)
[2019-04-25 11:48] LABS: Appearance Urine Clear (Clear); Bacteria Urine Automated Negative (Negative); Bilirubin Urine Negative (Negative); Blood Urine Trace (Negative); Color Urine Yellow; Glucose Urine UA Negative (Negative); Ketones Urine Negative (Negative); Leukocyte Esterase Urine Negative (Negative); Nitrite Urine Negative (Negative); Protein Urine Negative (Negative); RBC Urine Automated 0-4 /hpf (0-4); Specific Gravity Urine 1.013 (1.000-1.030); Urobilinogen Urine Negative (Negative); WBC Urine Automated 0 /hpf (0-5); pH Urine 5.5 (4.5-7.5)
[2019-04-25] MEDS ORDERED: ASPIRIN 81 MG CHEW PO STA (12:04)
--- NOTE | 2019-04-25 13:38 | History & Physical Report ---
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 In ED patient was noted to be hypoxic requiring 2 L O2 via NC. His troponin was elevated to 2.75, chronically elevated at 0.1. proBNP elevated to 10,991 which is increased from 5071 on 04/03/2019. BUN/creatinine slightly bumped at 72 and 2.28 respectively. Chest x-ray concerning with vascular congestion, pulmonary edema and bilateral pleural effusion. EKG reveals paced rhythm. Patient is not complaining of chest pain. Received 80mg IV furosemide with increased urinary output Home regimen is Torsemide 60mg am/40mg in pm; 2.5mg metolazone on mondays, aldactone 12.5mg daily Weight up 132.4 kg on d/c at 04/06--> 137.7kg (11.6lb) today, increased edema, sob and orthopnea Pt with Acute decompensated Systolic CHF with elevated troponin likely in setting of demand ischemia admit to telemetry Consult cardiology Dr. Garcia Received IV lasix 80mg while in ED - defer diuresis to cardiology continue aldactone daily weights strict I and O Low Na/heart healthy diet (3) CAD (coronary artery disease): (4) Ischemic cardiomyopathy: Patient with multivessel coronary artery disease including left main disease with multivessel stenting on 09/05/2018, patient not candidate for revascular ization secondary to multiple comorbidities Status post biventricular pacemaker implantation with ICD implantation on 05/10/2018 -patient refused AICD Most recent echocardiogram on 02/09 revealed LVEF 30 to 34% with moderate reduction in left ventricular systolic function, moderate diffuse left ventricular hypokinesis, left atrium severely enlarged, pulmonary hypertension Patient on medical management with ASA, Plavix, high intensity statin, metoprolol, Aldactone Cardiology consulted -appreciate their input and recommendations (5) Left ventricular apical thrombus: Continue warfarin, INR 3.7 Home regimen is 7.5 mg Tuedays and Fridays and 10 mg all other days In setting of supratherapeutic INR will administer 2.5 mg this evening and repeat INR in a.m. (6) Diabetes mellitus type II, uncontrolled: Uncontrolled, A1c 10.3 on 04/05/2019 Recent home regimen of Lantus 60 units SQ twice daily NovoLog 30 units AC Will consult glycemic pharmacist for management (7) CKD (chronic kidney disease) stage 3, GFR 30-59 ml/min: baseline cr 2.2 Bun/Cr today 72/2.28 monitor bmp and electrolytes given IV diuresis (8) Hypertension: Continue metoprolol, imdur, IV Lasix monitor for hypotension (9) HLD (hyperlipidemia): Continue high intensity statin (10) BPH (benign prostatic hyperplasia): Continue Flomax (11) Depression: Mood stable continue Zoloft (12) GERD (gastroesophageal reflux disease): Continue omeprazole (13) DVT prophylaxis: Continue warfarin, INR 3.7 Home regimen is 7.5 mg Mondays and Fridays and 10 mg all other days In setting of supratherapeutic INR will administer 2.5 mg this evening and repeat INR in a.m. Disposition: Admit to telemetry Follow up: PCP Winter Conrad PA-C [place] along with close [facility] Cardiology follow up/[facility] Patient was seen and examined in collaboration with Dr. Carrillo, please see addendum Starting 04/26/19 patient will be under the care of Dr. Davis History of Present Illness Chief Complaint: Increasing shortness of breath x3 days. 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 Patient recently hospitalized to [facility] ED on 04/03 to 04/06 by [facility] secondary to acute decompensated systolic CHF and was discharged home with close outpatient follow-up with Padmin[facility] at home. called EMS this morning secondary to abrupt increase in shortness of breath. He feels his shortness breath has gotten worse over the past 3 days. Complains of shortness breath at rest as well as with exertion. He is unsure of any judi weight gain and frankly denies lower extremity edema. States he is trying to abide by fluid restriction and is compliant with his medications. Feels that he was improved after recent discharge but felt that "I could of used a few more days in the hospital." Further complains of difficulty sleeping secondary to orthopnea. Requires a recliner. Has increased abdominal bloating, nausea, decreased urinary frequency. States he uses 2 L of O2 at at bedtime but does not require it during the day. Denies any recent illness, fever, chills, sweats, lightheadedness, dizziness, presyncope, chest pain, palpitations, emesis, a bdominal pain, diarrhea. Patient palpable last evening. Overall feels his appetite is been normal. In ED patient was noted to be hypoxic requiring 2 L O2 via NC. His troponin was elevated to 2.75, chronically elevated at 0.1. proBNP elevated to 10,991 which is increased from 5071 on 04/03/2019. BUN/creatinine slightly bumped at 72 and 2.28 respectively. Chest x-ray concerning with vascular congestion, pulmonary edema and bilateral pleural effusion. EKG reveals paced rhythm. Patient is not complaining of chest pain. Received 80mg IV furosemide with increased urinary output Allergies Allergy/AdvReac Type Severity Reaction Status Date / Time No Known Allergies Allergy Verified 04/25/19 11:13 Home Medications Home Medications Medication Instructions Recorded Confirmed Type aspirin 81 mg PO QAM 07/10/18 04/25/19 History atorvastatin [Lipitor] 80 mg PO DAILY 07/10/18 04/25/19 History calcium polycarbophil [Fiber 1 tab PO QAM 07/10/18 04/25/19 History Therapy (ca polycarboph)] cholecalciferol (vitamin D3) 1 tab PO DAILY 07/10/18 04/25/19 History [Vitamin D3] nitroglycerin [Nitrostat] 0.4 mg SUBLINGUAL DIRECTED PRN 07/10/18 04/25/19 History omeprazole 20 mg PO BID 07/10/18 04/25/19 History tamsulosin 0.4 mg PO DAILY 07/10/18 04/25/19 History Lantus Solostar U-100 Insulin 60 unit SC BID 04/03/19 04/25/19 History Novolog Flexpen U-100 Insulin 30 unit SC ACHS 04/03/19 04/25/19 History melatonin 15 mg PO HS 04/03/19 04/25/19 History spironolactone [Aldactone] 12.5 mg PO DAILY 04/03/19 04/25/19 History metoprolol succinate 50 mg PO QAM #30 tab 04/06/19 04/25/19 Rx warfarin [Coumadin] 7.5 mg PO MoFr@1600 #30 tab 04/06/19 04/25/19 Rx warfarin [Coumadin] 10 mg PO SuTuWeThSa@1600 #30 tab 04/06/19 04/25/19 Rx albuterol sulfate 2 puff INHALATION Q6H PRN 04/25/19 04/25/19 History clopidogrel 75 mg PO QAM 04/25/19 04/25/19 History docusate sodium 200 mg PO DAILY 04/25/19 04/25/19 History isosorbide mononitrate 30 mg PO QAM 04/25/19 04/25/19 History metolazone 2.5 mg PO MO 04/25/19 04/25/19 History potassium chloride 20 meq PO [id number] 04/25/19 04/25/19 History potassium chloride 40 meq PO MO 04/25/19 04/25/19 History sertraline 50 mg PO DAILY 04/25/19 04/25/19 History torsemide [Demadex] 40 mg PO QPM 04/25/19 04/25/19 History torsemide [Demadex] 60 mg PO QAM 04/25/19 04/25/19 History Past Med/Surg History Medical History Hypertension HLD (hyperlipidemia) Ischemic cardiomyopathy (Chronic) Critical surgical severity coronary artery disease with patient declining surgical revascularization BPH (benign prostatic hyperplasia) CAD (coronary artery disease) Critical surgical severity coronary artery disease with patient declining surgical revascularization intervention cardiac catheterization 04/2018 demonstrating critical coronary disease with eccentric high-grade distal left main stenosis, high-grade narrowings of all major left coronary anatomy including 90% proximal LAD, 90% ramus intermedius, 70% proximal circumflex, and 90% narrowing of a large obtuse marginal branch vessel. Left ventricular ejection fraction 20 -25% per echocardiogram and left ventriculogram. Acute on chronic systolic CHF (congestive heart failure) (Acute) Elevated troponin (Chronic) Diabetes mellitus type II, uncontrolled (Chronic) Chronic respiratory failure (Chronic) 2 L NC home O2 PRN CKD (chronic kidney disease), stage III (Chronic) Creatinine at baseline Chronic systolic HF (heart failure) (Chronic) 2/2 severe ischemic cardiomyopathy with apical thrombus Mural thrombus of left ventricle (Chronic) Diagnosed in April 2018 at [facility] [place]. 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) NSTEMI (non-ST elevated myocardial infarction) (Resolved) Surgical History History of total bilateral knee replacement History of appendectomy History of permanent cardiac pacemaker placement (Chronic) Functioning appropriately per past interrogations and current examination History of total knee arthroplasty (Resolved) b/l Status post coronary artery bypass graft (Inactive) Family History Father Stroke Other Heart disease Hypertension Social History Preferred Language: Pashto Communication Ability: Effective Visual Impairment: No Limitations Beliefs That Will Affect Care: None marital status: Current Living Situation: Spouse Feels Safe at Home: Yes Safety Concerns: Feels Safe At This Time Smoking Status: Never smoker Do You Dip or Chew Tobacco: No (former, quit "years ago") Second Hand Exposure: No Hx Alcohol Use: No Hx Substance Use: No Review of Systems Review of Systems: As noted per HPI, 10 systems reviewed and negative unless noted above. Physical Exam Physical Exam: Gen: Elderly, Obese, M, sitting at edge of bed, pleasant, conversing easily, on O2 via NC, hard of hearing Head: Normocephalic, Atraumatic Eyes: Sclera normal, no conjunctival injection, PERRLA, EOMI ENT: normal pharynx, mucous membranes moist Neck: supple, no adenopathy, No JVD, no bruit, Resp: Clear to auscultation b/l with bibasilar decreased BS, no wheeze, rales, rhonchi. Normal insp/exp effort, no accessory muscle use CV: Regular rate, regular rhythm, no murmur, rub, gallop, or ectopy Abd: Obese, distended abdomen, firm, +BS x 4, nontender Musculoskeletal: moves extremities active rom x 4, strength intact, good snuff grinder and screener strength Extremities: B/L +2 edema, tense lower ext with venous insufficiency changes, Skin: warm, moist, no rash, negative turgor, cap refill < 2sec, + venous stasis changes lower ext b/l Neuro: Alert and oriented x 3, speech normal, good mood/affect, cran nerve 2-12 intact grossly : deferred Results & Data Vital Signs (Past 12 Hours) Vital Signs Temp Pulse Pulse Resp BP BP Pulse Ox 04/25/19 11:36 88 21 110/63 96 04/25/19 10:28 36.6 C 92 H 36 H 154/82 H 95 04/25/19 10:19 87 36 H 94 Laboratory Results Short CBC 04/25/19 04/25/19 04/25/19 Range/Units 10:30 10:30 10:30 WBC 9.55 (4.8-10.8) K/uL Hgb 12.0 L (14.0-18.0) g/dL Hct 36.6 L (42-52) % Plt Count 179 (130-400) K/uL BUN 72 H (7-18) mg/dl Creatinine 2.28 H (0.6-1.4) mg/dl Troponin I 2.750 H* (0-0.045) ng/ml NT-Pro-B Natriuret Pep 12536 H Cancelled (0-1800) pg/ml BMP 04/25/19 10:30 Sodium 136 Potassium 4.3 Chloride 98 Carbon Dioxide 32 BUN 72 H Creatinine 2.28 H Glucose 174 H Calcium 9.1 Cardiac Enzymes 04/25/19 Range/Units 10:30 Troponin I 2.750 H* (0-0.045) ng/ml Liver Function 04/25/19 Range/Units 10:30 Total Bilirubin 0.8 (0.2-1) mg/dl AST 46 H (15-37) U/L ALT 31 (12-78) U/L Alkaline Phosphatase 85 (45-117) U/L Albumin 3.1 L (3.4-5.0) gm/dl Urine 04/25/19 Range/Units 11:20 Urine Color Yellow Urine Appearance Clear (Clear) Urine pH 5.5 (4.5-7.5) Ur Specific [place] 1.013 (1.000-1.030) Urine Protein Negative (Negative) Urine Glucose (UA) Negative (Negative) Diagnostic Findings CXR: IMPRESSION: Progression of the mild interstitial pulmonary edema and small bilateral pleural effusion/densities. Medications Administered Discontinued Medications Aspirin (Aspirin Chew) 324 mg PO NOW STA Stop: 04/25/19 12:05 Last Admin: 04/25/19 12:19 Dose: 324 mg Documented by: [id number] Furosemide 80 mg/ Syringe 8 mls @ 4 mls/min IV ONE STA Stop: 04/25/19 10:28 Last Admin: 04/25/19 10:54 Dose: 4 mls/min Documented by: [id number] ECG Findings: + paced rhythm Code Status & VTE Plan Code Status Full Code VTE Prophylaxis Plan VTE Prophylaxis will be ordered: Yes Supervising Physician Co-Signing Physician Notes Patient is a 79-year-old man with history of ischemic cardiomyopathy, multivessel coronary artery disease, pulmonary hypertension, left ventricle apical thrombus on anticoagulation and other problems presents with history of worsening shortness of breath, orthopnea, chronic unchanged lower extremity edema, increased abdominal bloating, nausea. Patient was noted to have supratherapeutic INR, no bleeding issues currently. Renal function at baseline. Has chronic troponin elevation which is slightly worsened from prior. Chest x-ray suggestive of mild interstitial pulmonary edema, bilateral small pleural effusions. On exam patient is obese, no apparent distress, normocephalic atraumatic, lungs decreased breath sounds, clear to auscultation, pacemaker on left side of the chest, S1-S2, no murmur, bilateral 3+ lower extremity edema, grossly no focal neurological. Patient is admitted for management of acute on chronic systolic CHF exacerbation. Elevated troponin likely demand ischemia. Previously considered for CABG for multivessel coronary disease but currently being managed medically as he was considered a poor candidate for surgery. Agree with IV diuresis with furosemide drip. Monitor I's and O's, fluid restriction, daily weight. Appreciate cardiology input. Monitor electrolytes, renal function closely. Will decrease the dose of Coumadin to 2.5 mg. Recheck INR tomorrow consider holding it INR continues to be supratherapeutic. I personally reviewed the record. Patient is interviewed and examined at bedside. Patient's care is coordinated with Janice Fraire PA-C. Please refer to the documentation above for details of patient's presentation and for discussion of other issues. (1) HLD (hyperlipidemia) Hyperlipidemia type: unspecified Qualified Code(s): E78.5 - Hyperlipidemia, unspecified (2) Hypertension Hypertension type: essential hypertension Qualified Code(s): I10 - Essential (primary) hypertension
--- NOTE | 2019-04-25 14:41 | Emergency Department Note ---
Entered by Mirella Wan acting as a scribe for History of Present Illness General Chief complaint: Shortness of Breath/Dyspnea Time Seen by Provider: 04/25/19 10:20 Source: patient Mode of arrival: EMS Limitations: no limitations History of Present Illness Onset (ago): day(s) 3 Location: chest Radiation: non-radiation Pain Consistency: + constant Relieved By: + none Exacerbated By: + none Associated symptoms: + other (+swelling in legs, abdomen) The patient is a 79 year old female who presents to the ED with complaints of worsening shortness of breath. He was brought to the ED via EMS. He has a history of CHF and is normally on 2L NC at night and his pulse ox is 89% here in the ED. He notes he has started wearing his NC during the day as well. He states he feels like his legs and abdomen are increasingly swollen which is worsening his breathing. He was treated in the hospital for CHF exacerbation recently and was discharged home approximately 3 weeks ago. Home Medications Home Medications Medication Instructions Recorded Confirmed Type aspirin 81 mg PO QAM 07/10/18 04/25/19 History atorvastatin [Lipitor] 80 mg PO DAILY 07/10/18 04/25/19 History calcium polycarbophil [Fiber 1 tab PO QAM 07/10/18 04/25/19 History Therapy (ca polycarboph)] cholecalciferol (vitamin D3) 1 tab PO DAILY 07/10/18 04/25/19 History [Vitamin D3] nitroglycerin [Nitrostat] 0.4 mg SUBLINGUAL DIRECTED PRN 07/10/18 04/25/19 History omeprazole 20 mg PO BID 07/10/18 04/25/19 History tamsulosin 0.4 mg PO DAILY 07/10/18 04/25/19 History Lantus Solostar U-100 Insulin 60 unit SC BID 04/03/19 04/25/19 History Novolog Flexpen U-100 Insulin 30 unit SC ACHS 04/03/19 04/25/19 History melatonin 15 mg PO HS 04/03/19 04/25/19 History spironolactone [Aldactone] 12.5 mg PO DAILY 04/03/19 04/25/19 History metoprolol succinate 50 mg PO QAM #30 tab 04/06/19 04/25/19 Rx warfarin [Coumadin] 7.5 mg PO MoFr@1600 #30 tab 04/06/19 04/25/19 Rx warfarin [Coumadin] 10 mg PO SuTuWeThSa@1600 #30 tab 04/06/19 04/25/19 Rx albuterol sulfate 2 puff INHALATION Q6H PRN 04/25/19 04/25/19 History clopidogrel 75 mg PO QAM 04/25/19 04/25/19 History docusate sodium 200 mg PO DAILY 04/25/19 04/25/19 History isosorbide mononitrate 30 mg PO QAM 04/25/19 04/25/19 History metolazone 2.5 mg PO MO 04/25/19 04/25/19 History potassium chloride 20 meq PO [id number] 04/25/19 04/25/19 History potassium chloride 40 meq PO MO 04/25/19 04/25/19 History sertraline 50 mg PO DAILY 04/25/19 04/25/19 History torsemide [Demadex] 40 mg PO QPM 04/25/19 04/25/19 History torsemide [Demadex] 60 mg PO QAM 04/25/19 04/25/19 History Allergies Allergy/AdvReac Type Severity Reaction Status Date / Time No Known Allergies Allergy Verified 04/25/19 11:13 Past Med/Surg History Medical History Hypertension HLD (hyperlipidemia) Ischemic cardiomyopathy (Chronic) Critical surgical severity coronary artery disease with patient declining surgical revascularization BPH (benign prostatic hyperplasia) CAD (coronary artery disease) Critical surgical severity coronary artery disease with patient declining surgical revascularization intervention cardiac catheterization 04/2018 demonstrating critical coronary disease with eccentric high-grade distal left main stenosis, high-grade narrowings of all major left coronary anatomy including 90% proximal LAD, 90% ramus intermedius, 70% proximal circumflex, and 90% narrowing of a large obtuse marginal branch vessel. Left ventricular ejection fraction 20 -25% per echocardiogram and left ventriculogram. Acute on chronic systolic CHF (congestive heart failure) (Acute) Elevated troponin (Chronic) Diabetes mellitus type II, uncontrolled (Chronic) Chronic respiratory failure (Chronic) 2 L NC home O2 PRN CKD (chronic kidney disease), stage III (Chronic) Creatinine at baseline Chronic systolic HF (heart failure) (Chronic) 2/2 severe ischemic cardiomyopathy with apical thrombus Mural thrombus of left ventricle (Chronic) Diagnosed in April 2018 at [facility]. 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) NSTEMI (non-ST elevated myocardial infarction) (Resolved) Surgical History History of total bilateral knee replacement History of appendectomy History of permanent cardiac pacemaker placement (Chronic) Functioning appropriately per past interrogations and current examination History of total knee arthroplasty (Resolved) b/l Status post coronary artery bypass graft (Inactive) Family History Father Stroke Other Heart disease Hypertension Social History Preferred Language: Qatari Communication Ability: Effective Visual Impairment: No Limitations Beliefs That Will Affect Care: None marital status: Current Living Situation: Spouse Feels Safe at Home: Yes Safety Concerns: Feels Safe At This Time Smoking Status: Never smoker Do You Dip or Chew Tobacco: No (former, quit "years ago") Second Hand Exposure: No Hx Alcohol Use: No Hx Substance Use: No Review of Systems See HPI for pertinent positives & negatives. and A total of 10 systems reviewed and were otherwise negative Physical Exam Vital Signs Vital Signs - 24 hr 04/25/19 10:19 04/25/19 10:28 04/25/19 11:36 Temperature 36.6 C Temperature Source Oral Sepsis Recent Fever Within 48 Hours No Sepsis New/Unexplained Change in Mental Status No Sepsis Action Taken by Nursing No Action Required Oxygen Flow Rate - Titration 2 Pulse Oximetry Post Tiitration 94 Pulse Rate 87 92 H Pulse Rate [Left Apical] 88 Respiratory Rate 36 H 36 H 21 Respiratory Effort / Characteristics Accessory Muscle Use SOB on Exertion Respiratory Depth Respiratory Pattern Blood Pressure 154/82 H Blood Pressure [Right Arm] 110/63 Blood Pressure Mean 106 Blood Pressure Mean [Right Arm] 78 Blood Pressure Position Lying Pulse Oximetry 94 95 96 Oxygen Delivery Method Nasal Cannula Nasal Cannula Room Air Oxygen Flow Rate 2 2 04/25/19 13:34 04/25/19 13:37 04/25/19 14:12 Temperature Temperature Source Sepsis Recent Fever Within 48 Hours Sepsis New/Unexplained Change in Mental Status Sepsis Action Taken by Nursing Oxygen Flow Rate - Titration Pulse Oximetry Post Tiitration Pulse Rate Pulse Rate [Left Apical] 82 83 82 Respiratory Rate 21 20 20 Respiratory Effort / Characteristics Non-Labored Spontaneous Respiratory Depth Normal Respiratory Pattern Regular Blood Pressure Blood Pressure [Right Arm] 116/67 113/69 104/75 Blood Pressure Mean Blood Pressure Mean [Right Arm] 83 83 84 Blood Pressure Position Pulse Oximetry 96 95 95 Oxygen Delivery Method Room Air Nasal Cannula Oxygen Flow Rate 2 Vital signs reviewed. General: Chronically ill-appearing 79 year old male, in no significant distress. HEENT: No scleral icterus, PERRLA, neck supple. Atraumatic. Cardiovascular: Regular rate and rhythm, no extra sounds. Pulmonary: Congested lung victor bilaterally, increased work of breathing. Abdomen: Soft, nontender, nondistended, positive bowel sounds. Musculoskeletal: Atraumatic, tense edemas in bilateral LE. Neurologic: Patient awake alert and oriented x 3. Skin: Warm, dry, no rash Course 1028: The patient was evaluated in room B4 and a complete history and physical were performed. 1202: I discussed the patients case with Dr. Carrillo [facility] Hospitalist. The patient will be further evaluated. His INR is 3.7 so no Heparin was started. 1220: I reevaluated the patient. He is resting comfortably. I discussed his results and my recommendation he remain in the hospital for further evaluation and management and he verbalized complete understanding and agreement. Consultations Consultation #1: I [facility] The patient will be further evaluated. His INR is 3.7, no heparin was ordered. Time: 12:02 Administered Medications Acetaminophen (Tylenol) 650 mg PO Q4H PRN PRN Reason: Pain or Fever Stop: 05/25/19 15:24 Last Admin: 04/28/19 01:13 Dose: 650 mg Documented by: [id number] Aspirin (Ecotrin Ectab) 81 mg PO QAM [facility] Stop: 05/26/19 08:59 Last Admin: 04/28/19 08:36 Dose: 81 mg Documented by: [id number] Admin: 04/27/19 07:34 Dose: 81 mg Documented by: [id number] Admin: 04/26/19 08:19 Dose: 81 mg Documented by: [id number] Atorvastatin Calcium (Lipitor) 80 mg PO DAILY [facility] Stop: 05/26/19 08:59 Last Admin: 04/28/19 08:35 Dose: 80 mg Documented by: [id number] Admin: 04/27/19 07:34 Dose: 80 mg Documented by: [id number] Admin: 04/26/19 08:19 Dose: 80 mg Documented by: [id number] Calcium Polycarbophil (Fibercon) 1 tab PO QAM [facility] Stop: 05/26/19 08:59 Last Admin: 04/28/19 08:36 Dose: 1 tab Documented by: [id number] Admin: 04/27/19 07:33 Dose: 1 tab Documented by: [id number] Admin: 04/26/19 08:19 Dose: 1 tab Documented by: [id number] Clopidogrel Bisulfate (Plavix) 75 mg PO QAM [facility] Stop: 05/26/19 08:59 Last Admin: 04/28/19 08:35 Dose: 75 mg Documented by: [id number] Admin: 04/27/19 07:33 Dose: 75 mg Documented by: [id number] Admin: 04/26/19 08:19 Dose: 75 mg Documented by: [id number] Docusate Sodium (Colace) 200 mg PO DAILY [facility] Stop: 05/26/19 08:59 Last Admin: 04/28/19 08:35 Dose: 200 mg Documented by: [id number] Admin: 04/27/19 07:33 Dose: 200 mg Documented by: [id number] Admin: 04/26/19 08:18 Dose: 200 mg Documented by: [id number] Furosemide 100 mg/ Dextrose 100 mls @ 20 mls/hr IV .Q5H [facility] Stop: 05/25/19 15:44 Last Admin: 04/28/19 05:55 Dose: 20 mg/hr, 20 mls/hr Documented by: [id number] Infusion: 04/28/19 05:55 Dose: 20 mg/hr, 20 mls/hr Documented by: [id number] Admin: 04/28/19 01:22 Dose: 20 mg/hr, 20 mls/hr Documented by: [id number] Infusion: 04/28/19 01:22 Dose: 20 mg/hr, 20 mls/hr Documented by: [id number] Admin: 04/27/19 20:40 Dose: 20 mg/hr, 20 mls/hr Documented by: [id number] Infusion: 04/27/19 20:40 Dose: 20 mg/hr, 20 mls/hr Documented by: [id number] Admin: 04/27/19 17:17 Dose: 20 mg/hr, 20 mls/hr Documented by: [id number] Infusion: 04/27/19 17:17 Dose: 20 mg/hr, 20 mls/hr Documented by: [id number] Admin: 04/27/19 13:16 Dose: 20 mg/hr, 20 mls/hr Documented by: [id number] Infusion: 04/27/19 13:16 Dose: 20 mg/hr, 20 mls/hr Documented by: [id number] Admin: 04/27/19 08:19 Dose: 20 mg/hr, 20 mls/hr Documented by: [id number] Infusion: 04/27/19 07:38 Dose: 20 mg/hr, 20 mls/hr Documented by: [id number] Admin: 04/27/19 02:38 Dose: 20 mg/hr, 20 mls/hr Documented by: [id number] Infusion: 04/27/19 02:38 Dose: 20 mg/hr, 20 mls/hr Documented by: [id number] Admin: 04/26/19 21:55 Dose: 20 mg/hr, 20 mls/hr Documented by: [id number] Infusion: 04/26/19 21:40 Dose: 20 mg/hr, 20 mls/hr Documented by: [id number] Admin: 04/26/19 16:40 Dose: 20 mg/hr, 20 mls/hr Documented by: [id number] Infusion: 04/26/19 16:33 Dose: 20 mg/hr, 20 mls/hr Documented by: [id number] Admin: 04/26/19 11:33 Dose: 20 mg/hr, 20 mls/hr Documented by: [id number] Infusion: 04/26/19 11:15 Dose: 20 mg/hr, 20 mls/hr Documented by: [id number] Infusion: 04/26/19 07:23 Dose: 20 mg/hr, 20 mls/hr Documented by: [id number] Admin: 04/26/19 06:15 Dose: 20 mg/hr, 20 mls/hr Documented by: [id number] Infusion: 04/26/19 06:15 Dose: 20 mg/hr, 20 mls/hr Documented by: [id number] Admin: 04/26/19 01:15 Dose: 20 mg/hr, 20 mls/hr Documented by: [id number] Infusion: 04/26/19 01:15 Dose: 20 mg/hr, 20 mls/hr Documented by: [id number] Admin: 04/25/19 20:41 Dose: 20 mg/hr, 20 mls/hr Documented by: [id number] Infusion: 04/25/19 20:41 Dose: 20 mg/hr, 20 mls/hr Documented by: [id number] Admin: 04/25/19 16:39 Dose: 20 mg/hr, 20 mls/hr Documented by: [id number] Insulin Aspart (Novolog Flexpen) 0 units SC ACHS [facility] Stop: 05/25/19 16:29 Last Admin: 04/28/19 08:37 Dose: 10 units Documented by: [id number] Cosigned by: [id number] Admin: 04/27/19 20:53 Dose: 4 units Documented by: [id number] Cosigned by: [id number] Admin: 04/27/19 17:16 Dose: 9 units Documented by: [id number] Cosigned by: [id number] Admin: 04/27/19 11:59 Dose: 14 units Documented by: [id number] Cosigned by: [id number] Admin: 04/27/19 07:35 Dose: 17 units Documented by: [id number] Cosigned by: [id number] Admin: 04/26/19 20:58 Dose: 2 units Documented by: [id number] Cosigned by: [id number] Insulin Glargine (Lantus Solostar Pen) 20 units SC BID [facility]; Protocol Stop: 05/26/19 20:59 Last Admin: 04/28/19 08:36 Dose: 20 units Documented by: [id number] Cosigned by: [id number] Admin: 04/27/19 20:52 Dose: 20 units Documented by: [id number] Cosigned by: [id number] Admin: 04/27/19 07:37 Dose: 20 units Documented by: [id number] Cosigned by: [id number] Admin: 04/26/19 20:57 Dose: 20 units Documented by: [id number] Cosigned by: [id number] Isosorbide Mononitrate (Imdur Extended Rel) 30 mg PO QAM [facility] Stop: 05/26/19 08:59 Last Admin: 04/28/19 08:34 Dose: 30 mg Documented by: [id number] Admin: 04/27/19 08:19 Dose: 30 mg Documented by: [id number] Admin: 04/26/19 08:19 Dose: 30 mg Documented by: [id number] Metoprolol Succinate (Toprol Xl) 50 mg PO QAM [facility] Stop: 05/26/19 08:59 Last Admin: 04/28/19 08:34 Dose: 50 mg Documented by: [id number] Admin: 04/27/19 08:19 Dose: 50 mg Documented by: [id number] Admin: 04/26/19 08:19 Dose: 50 mg Documented by: [id number] Miscellaneous (Carbohydrates For Hypoglycemia) 15 - 30 gm PO UD PRN PRN Reason: Hypoglycemia Treatment Stop: 05/25/19 15:24 Last Admin: 04/26/19 16:37 Dose: 15 gm Documented by: [id number] Pantoprazole Sodium (Protonix) 40 mg PO BID [facility]; Protocol Stop: 05/25/19 20:59 Last Admin: 04/28/19 08:34 Dose: 40 mg Documented by: [id number] Admin: 04/27/19 20:42 Dose: 40 mg Documented by: [id number] Admin: 04/27/19 07:33 Dose: 40 mg Documented by: [id number] Admin: 04/26/19 20:26 Dose: 40 mg Documented by: [id number] Admin: 04/26/19 08:19 Dose: 40 mg Documented by: [id number] Admin: 04/25/19 20:44 Dose: 40 mg Documented by: [id number] Potassium Chloride (Klor-Con M20) 40 meq PO BID [facility] Stop: 05/27/19 10:44 Last Admin: 04/28/19 08:35 Dose: 40 meq Documented by: [id number] Admin: 04/27/19 20:42 Dose: 40 meq Documented by: [id number] Admin: 04/27/19 11:23 Dose: 40 meq Documented by: [id number] Sertraline HCl (Zoloft) 50 mg PO DAILY [facility] Stop: 05/26/19 08:59 Last Admin: 04/28/19 08:36 Dose: 50 mg Documented by: [id number] Admin: 04/27/19 07:34 Dose: 50 mg Documented by: [id number] Admin: 04/26/19 08:19 Dose: 50 mg Documented by: [id number] Spironolactone (Aldactone) 12.5 mg PO DAILY [facility] Stop: 05/26/19 08:59 Last Admin: 04/28/19 08:36 Dose: 12.5 mg Documented by: [id number] Admin: 04/27/19 07:34 Dose: 12.5 mg Documented by: [id number] Admin: 04/26/19 08:18 Dose: 12.5 mg Documented by: [id number] Tamsulosin HCl (Flomax) 0.4 mg PO DAILY [facility] Stop: 05/26/19 08:59 Last Admin: 04/28/19 08:36 Dose: 0.4 mg Documented by: [id number] Admin: 04/27/19 07:34 Dose: 0.4 mg Documented by: [id number] Admin: 04/26/19 08:19 Dose: 0.4 mg Documented by: [id number] Vitamin D (Vitamin D3) 1,000 units PO DAILY [facility] Stop: 05/26/19 08:59 Last Admin: 04/28/19 08:36 Dose: 1,000 units Documented by: [id number] Admin: 04/27/19 07:33 Dose: 1,000 units Documented by: [id number] Admin: 04/26/19 08:19 Dose: 1,000 units Documented by: [id number] Warfarin Sodium (Coumadin) 7.5 mg PO MoFr@1600 [facility] Stop: 05/27/19 15:59 Last Admin: 04/27/19 16:24 Dose: 7.5 mg Documented by: [id number] Zolpidem Tartrate (Ambien) 5 mg PO HS PRN PRN Reason: Sleep Stop: 05/26/19 21:13 Last Admin: 04/27/19 20:40 Dose: 5 mg Documented by: [id number] Admin: 04/26/19 22:16 Dose: 5 mg Documented by: [id number] Discontinued Medications Aspirin (Aspirin Chew) 324 mg PO NOW STA Stop: 04/25/19 12:05 Last Admin: 04/25/19 12:19 Dose: 324 mg Documented by: [id number] Furosemide 80 mg/ Syringe 8 mls @ 4 mls/min IV ONE STA Stop: 04/25/19 10:28 Last Admin: 04/25/19 10:54 Dose: 4 mls/min Documented by: [id number] Insulin Aspart (Novolog Flexpen) 0 units SC ACHS [facility] Stop: 05/25/19 16:29 Last Admin: 04/26/19 18:06 Dose: Not Given Documented by: [id number] Cosigned by: [id number] Admin: 04/26/19 12:05 Dose: 26 units Documented by: [id number] Cosigned by: [id number] Admin: 04/26/19 08:15 Dose: 12 units Documented by: [id number] Cosigned by: [id number] Admin: 04/25/19 20:46 Dose: 5 units Documented by: [id number] Cosigned by: [id number] Admin: 04/25/19 16:48 Dose: Not Given Documented by: [id number] Cosigned by: [id number] Insulin Aspart (Novolog Flexpen) 0 units SC TODAY@0200 [facility] Stop: 04/26/19 02:01 Last Admin: 04/26/19 02:10 Dose: 3 units Documented by: [id number] Cosigned by: [id number] Insulin Glargine (Lantus Solostar Pen) 0 units SC HS ONE; Protocol Stop: 04/25/19 21:01 Last Admin: 04/25/19 20:47 Dose: 45 units Documented by: [id number] Cosigned by: [id number] Insulin Glargine (Lantus Solostar Pen) 45 units SC BID [facility]; Protocol Stop: 05/26/19 08:59 Last Admin: 04/26/19 08:17 Dose: 45 units Documented by: [id number] Cosigned by: [id number] Potassium Chloride (Klor-Con M20) 20 meq PO SuTuWeThFrSa@0900 [facility] Stop: 05/26/19 08:59 Last Admin: 04/27/19 07:34 Dose: 20 meq Documented by: [id number] Admin: 04/26/19 08:19 Dose: 20 meq Documented by: [id number] Potassium Chloride (Klor-Con M10) 20 meq PO NOW STA Stop: 04/26/19 09:45 Last Admin: 04/26/19 10:05 Dose: 20 meq Documented by: [id number] Warfarin Sodium (Coumadin) 2.5 mg PO TODAY@1600 [facility] Stop: 04/25/19 16:01 Last Admin: 04/25/19 16:49 Dose: 2.5 mg Documented by: [id number] Warfarin Sodium (Coumadin) 10 mg PO NOW ONE Stop: 04/26/19 17:31 Last Admin: 04/26/19 19:28 Dose: 10 mg Documented by: [id number] Zolpidem Tartrate (Ambien) 5 mg PO HS ONE Stop: 04/25/19 21:44 Last Admin: 04/25/19 22:08 Dose: 5 mg Documented by: [id number] Medical Decision Making Differential Diagnosis Differential diagnoses includes but is not limited to pneumonia, bronchitis, CO PD/Asthma exacerbation, pneumothorax, pulmonary embolism, congestive heart failure, acute coronary syndrome Medical Records Attestation: I reviewed the patient's medical records. Home Medications Current Medication List: was personally reviewed by me Laboratory Data Attestation: I reviewed the patient's lab results. Result diagrams: 04/28/19 04:55 04/28/19 04:55 Lab Results 04/25/19 04/25/19 04/25/19 Range/Units 10:30 10:30 10:30 WBC 9.55 (4.8-10.8) K/uL RBC 3.76 L (4.7-6.1) M/uL Hgb 12.0 L (14.0-18.0) g/dL Hct 36.6 L (42-52) % MCV 97.3 (80-100) fL MCH 31.9 (25-34) pg MCHC 32.8 (32-36) g/dL RDW Std Deviation 54.3 H (36.4-46.3) fL RDW Coeff of Marli 15.4 H (11.5-14.5) % Plt Count 179 (130-400) K/uL MPV 11.4 H (7.4-10.4) fL Immature Gran % (Auto) 0.3 % Neut % (Auto) 76.8 % Lymph % (Auto) 11.0 % [place] % (Auto) 10.2 % Eos % (Auto) 1.5 % Baso % (Auto) 0.2 % Immature Gran # (Auto) 0.03 H (0.00-0.02) K/uL Neut # (Auto) 7.34 H (1.4-6.5) K/uL Lymph # (Auto) 1.05 L (1.2-3.4) K/uL [place] # (Auto) 0.97 H (0.11-0.59) K/uL Eos # (Auto) 0.14 (0-0.5) K/uL Baso # (Auto) 0.02 (0-0.2) K/uL PT 34.5 H (9.0-12.0) Seconds INR 3.7 H (0.9-1.1) APTT 35.6 H (21.0-31.0) Seconds PTT Ratio 1.3 Sodium 136 (136-145) mmol/L Potassium 4.3 (3.5-5.1) mmol/L Chloride 98 (98-107) mmol/L Carbon Dioxide 32 (21-32) mmol/L Anion Gap 7.0 (3-11) BUN 72 H (7-18) mg/dl Creatinine 2.28 H (0.6-1.4) mg/dl Est Cr Clr Drug Dosing 37.9 ml/min Est GFR ( Amer) 30.7 Est GFR (Non-Af Amer) 26.5 BUN/Creatinine Ratio 31.4 H (10-20) Glucose 174 H (70-99) mg/dl Calcium 9.1 (8.5-10.1) mg/dl Magnesium 2.4 (1.8-2.4) mg/dl Total Bilirubin 0.8 (0.2-1) mg/dl AST 46 H (15-37) U/L ALT 31 (12-78) U/L Alkaline Phosphatase 85 (45-117) U/L Troponin I 2.750 H* (0-0.045) ng/ml NT-Pro-B Natriuret Pep [id number] H (0-1800) pg/ml Total Protein 7.0 (6.4-8.2) gm/dl Albumin 3.1 L (3.4-5.0) gm/dl Globulin 3.9 (2.5-4.0) gm/dl Albumin/Globulin Ratio 0.8 L (0.9-2) Urine Color Urine Appearance (Clear) Urine pH (4.5-7.5) Ur Specific [place] (1.000-1.030) Urine Protein (Negative) Urine Glucose (UA) (Negative) Urine Ketones (Negative) Urine Blood (Negative) Urine Nitrite (Negative) Urine Bilirubin (Negative) Urine Urobilinogen (Negative) Ur Leukocyte Esterase (Negative) Urine WBC (Auto) (0-5) /hpf Urine RBC (Auto) (0-4) /hpf U Hyaline Cast (Auto) (0-5) /lpf U Epithel Cells (Auto) (0-5) /lpf Urine Bacteria (Auto) (Negative) 07/03/19 07/03/19 Range/Units 10:30 11:20 WBC (4.8-10.8) K/uL RBC (4.7-6.1) M/uL Hgb (14.0-18.0) g/dL Hct (42-52) % MCV (80-100) fL MCH (25-34) pg MCHC (32-36) g/dL RDW Std Deviation (36.4-46.3) fL RDW Coeff of Marli (11.5-14.5) % Plt Count (130-400) K/uL MPV (7.4-10.4) fL Immature Gran % (Auto) % Neut % (Auto) % Lymph % (Auto) % [place] % (Auto) % Eos % (Auto) % Baso % (Auto) % Immature Gran # (Auto) (0.00-0.02) K/uL Neut # (Auto) (1.4-6.5) K/uL Lymph # (Auto) (1.2-3.4) K/uL [place] # (Auto) (0.11-0.59) K/uL Eos # (Auto) (0-0.5) K/uL Baso # (Auto) (0-0.2) K/uL PT (9.0-12.0) Seconds INR (0.9-1.1) APTT (21.0-31.0) Seconds PTT Ratio Sodium (136-145) mmol/L Potassium (3.5-5.1) mmol/L Chloride (98-107) mmol/L Carbon Dioxide (21-32) mmol/L Anion Gap (3-11) BUN (7-18) mg/dl Creatinine (0.6-1.4) mg/dl Est Cr Clr Drug Dosing ml/min Est GFR ( Amer) Est GFR (Non-Af Amer) BUN/Creatinine Ratio (10-20) Glucose (70-99) mg/dl Calcium (8.5-10.1) mg/dl Magnesium (1.8-2.4) mg/dl Total Bilirubin (0.2-1) mg/dl AST (15-37) U/L ALT (12-78) U/L Alkaline Phosphatase (45-117) U/L Troponin I (0-0.045) ng/ml NT-Pro-B Natriuret Pep Cancelled (0-1800) pg/ml Total Protein (6.4-8.2) gm/dl Albumin (3.4-5.0) gm/dl Globulin (2.5-4.0) gm/dl Albumin/Globulin Ratio (0.9-2) Urine Color Yellow Urine Appearance Clear (Clear) Urine pH 5.5 (4.5-7.5) Ur Specific [place] 1.013 (1.000-1.030) Urine Protein Negative (Negative) Urine Glucose (UA) Negative (Negative) Urine Ketones Negative (Negative) Urine Blood Trace H (Negative) Urine Nitrite Negative (Negative) Urine Bilirubin Negative (Negative) Urine Urobilinogen Negative (Negative) Ur Leukocyte Esterase Negative (Negative) Urine WBC (Auto) 0 (0-5) /hpf Urine RBC (Auto) 0-4 (0-4) /hpf U Hyaline Cast (Auto) 5-10 H (0-5) /lpf U Epithel Cells (Auto) 5-10 H (0-5) /lpf Urine Bacteria (Auto) Negative (Negative) Imaging Data Radiologist's Impression: Radiology results as stated below per my review and the radiologist's interpretation: XR chest 1V portable HISTORY: Dyspnea COMPARISON: Chest 04/03/2019. FINDINGS: Cardiomegaly with progression of the mild interstitial pulmonary edema. Small bilateral pleural effusions and bibasilar densities have also slightly progressed. The heart remains enlarged. Left-sided pacemaker/ defibrillator is noted. No pneumothorax. IMPRESSION: Progression of the mild interstitial pulmonary edema and small bilateral pleural effusion/densities. Electronically signed by: Rishi Penny M.D. 04/25/2019 10:43 AM ECG Data Attestation: I personally reviewed and interpreted this ECG as follows: Indication: SOB/dyspnea Rate (beats per minute): 90 Rhythm: other (Atrial sensed, ventricularly paced) Findings: + other (Low voltage QRS, QTC is 540) Blood Pressure Blood Pressure Findings: Normal blood pressure Blood Pressure Disposition: did not require urgent referral MDM Narrative This pt was evaluated and appeared to be in no distress. IV access was obtained and lab work was drawn. Pt was placed on the library monitor. EKG reveals a paced rhythm. CXR reveals pulmonary vascular congestion. Trop is elevated at 2.75. Pt was given ASA po and Lasix 80 mg IV. He is anticoagulated, INR 3.7 therefore no heparin was initiated. Pt was informed of the findings and need for hospitalization. Hospitalist was contacted for further management. Impression & Plan CHF (congestive heart failure), Non-ST elevation IN (NSTEMI) Discharge Plan Visit Data *Final* Discharge Date/Time: 04/25/19 14:40 Chief Complaint: Shortness of Breath/Dyspnea ED Provider: Whitney Escobar Discharge Problem: CHF (congestive heart failure), Non-ST elevation IN (NSTEMI) Patient Disposition: Admitted As Inpatient Discharge Instructions Interventions: ED Discharge Assessment Last Done: 04/25/19 14:40 The scribe's documentation has been prepared under my direction and personally reviewed by me in its entirety. I confirm that the note above accurately reflects all work, treatment, procedures, and medical decision making performed by me.
[2019-04-25] MEDS ORDERED: DEXTROSE 50% 50 ML SYRINGE IV PRN (15:25)
[2019-04-25] MEDS ORDERED: CARBOHYDRATES FOR HYPOGLYCEMIA PO PRN (15:25)
[2019-04-25] MEDS ORDERED: ONDANSETRON INJ 2 MG/ML 2 ML VIAL IV PRN (15:25)
[2019-04-25] MEDS ORDERED: GLUCAGON FOR INJ 1 MG VIAL SQ PRN (15:25)
[2019-04-25] MEDS ORDERED: GLUCOSE 10 TABS/TUBE PO PRN (15:25)
[2019-04-25] MEDS ORDERED: GLUCOSE 40% GEL 15 GM TUBE PO PRN (15:25)
[2019-04-25] MEDS ORDERED: POLYETHYLENE (MIRALAX) 17 GM PACK PO PRN (15:25)
[2019-04-25] MEDS ORDERED: NITROGLYCERIN SL 0.4 MG/TAB TAB SL PRN (15:25)
[2019-04-25] MEDS ORDERED: WARFARIN SOD 2.5 MG TAB PO SCH (16:00)
[2019-04-25] MEDS ORDERED: PHARMACY GLYCEMIC MGMT CONSULT PRN (16:15)
[2019-04-25 16:37] LABS: BUN Creatinine Ratio 30.8 (10-20); Calcium 9.1 mg/dl (8.5-10.1); Est GFR (African American) 31.4; Est GFR (Non-African American) 27.1; Potassium 3.8 mmol/L (3.5-5.1)
[2019-04-25] MEDS: FUROSEMIDE 100 MG in DEXTROSE 5% 90 ML IV SCH ×2 (16:39→20:41)
--- NOTE | 2019-04-25 16:39 | Pharmacy Report ---
Glycemic Control Consultation - Date of Service April 25, 2019 - Scope Scope: Glycemic Pharmacist consulted by Dr Fraire on 04/25/19 for glycemic control and to write orders per [facility] inpatient glycemic control protocol - Objective Weight: 134 kg Accuchecks BSG (last 24hrs): 04/25/19 10:30 Glucose 174 H Laboratory Data (last 24hrs): 04/25/19 10:30 Potassium 4.3 Carbon Dioxide 32 Anion Gap 7.0 Creatinine 2.28 H Est Cr Clr Drug Dosing 37.9 - Recent Pertinent Medications Outpatient Anti-diabetic Regimen: * Lantus 60 units BID, Novolog 30units ACHS * A1c = 10 % March 2019 - Assessment & Plan Assessment & Plan: ASSESSMENT: * Mr Escamilla is a 79yo M known to the pharmacy glycemic service from previous admissions. His outpt glycemic management is poor as evidenced by his A1C of 10% PMH: consistent with HFrEF, HTN, HLD, obesity, among others. He p/w ADHF - warm and wet subclass. His BP is intact. He is being ordered a lasix infsn. Pulmonary congestion likely 2/2 to fluid overload. * I did meet with Mr. Escamilla bedside, he received his AM lantus and AM novolog. PLAN FOR INPATIENT GLYCEMIC CONTROL: * Basal insulin * Lantus scale tonight, please see MAR for further details * Bolus insulin * NovoLog per scale ACHS or Q6hrs while NPO * Goal Range: Low 110 mg/dL - High 140 mg/dL * Correction Factor: 12 mg/dL/unit * Nutritional / Prandial insulin per carb ratio of 1 unit per 4 grams CHO consumed * adding 00,04 checks but these can likely be d/c'd if BSGs are WNL. * Please note that the plan above was derived based on current level of insulin resistance and hospital stress. These recommendations are appropriate for inpatient admission only. Plan of care upon discharge will need to be reassessed to avoid potential outpatient hypo/hyperglycemia. Thank you.
[2019-04-25] MEDS: INSULIN ASPART 100 UNITS/ML 3 ML PEN SC SCH ×2 (16:48→20:46)
[2019-04-25 16:58] LABS: Troponin I 2.67 ng/ml (0-0.045)
--- NOTE | 2019-04-25 18:55 | Consultation Report ---
DATE OF CONSULTATION: 04/25/2019 CONSULTATION REQUESTED BY: Janice Fraire PA-C. REASON FOR CONSULTATION: Acute decompensated systolic heart failure. HISTORY OF PRESENT ILLNESS: The patient is a very pleasant, yet very medically complex 79-year-old gentleman, who was admitted very often to [facility] for acute decompensated systolic heart failure. He presents to [facility] ER today with complaints of shortness of breath and abdominal distention. He states he noticed that his shortness of breath started approximately 2 days prior to presentation and slowly progressed over the next 2 days. He has also noted that his abdomen has become significantly distended and he states that this is exactly similar to his most recent presentations with volume overload. He states he has been compliant with his meds at home. Unfortunately, reviewing outpatient medical records, it appears that his [employer] scale is not working. Home health has been contacting every day and his called today to say that he lost 55 pounds overnight according to the scale. The patient states he has been compliant with his medications and has not missed any dosages and he also states he has been following his diet; however, there have been reports in the past of the patient deviating from his dietary restrictions. Upon presentation to [facility], he was found to be up approximately 11.5 pounds. He was given a dose of IV Lasix and admitted to telemetry. Currently, he states he is feeling better already, but he states his shortness of breath is not resolved, but it is better than this morning. Otherwise, his abdomen remains distended. Luckily though he denies any chest pain, palpitations, lightheadedness, dizziness or syncope. PAST SURGICAL HISTORY: 1. Cardiac catheterization on 05/04/2018 revealing multivessel disease. 2. multiple coronary arteries including the left main. 3. Medtronic biventricular pacemaker. 4. Bilateral knee replacements. 5. Appendectomy. MEDICAL ILLNESSES: 1. Coronary artery disease with severe multivessel coronary artery disease. The patient is declining high risk coronary artery bypass grafting surgery in the past, currently being treated medically. The patient has also been turned down by Surgery for intervention. 2. Severe ischemic cardiomyopathy, EF 20%-24%. 3. Apical left mural thrombus, on chronic anticoagulation. 4. Obesity. 5. Obesity hypoventilation syndrome. 6. Chronic respiratory failure. 7. Diabetes. 8. Stage IV chronic kidney disease. 9. Morbid obesity. 10. Carotid occlusive disease. 11. Tobacco abuse history. FAMILY HISTORY: Noncontributory given the patient's age. SOCIAL HISTORY: The patient is a former smoker. Denies any alcohol or recreational drug use. He is and lives at home with his . REVIEW OF SYSTEMS: As per HPI, all other review of systems reviewed and negative at this time. ALLERGIES: No known drug allergies. MEDICATIONS AN OUTPATIENT: 1. Torsemide 60 mg q.a.m. and 40 mg q.p.m. 2. Spironolactone 12.5 mg daily. 3. Metoprolol succinate 50 mg daily. 4. Metolazone 2.5 mg daily. 5. Imdur 30 mg daily. 6. Potassium chloride. 7. Plavix 75 mg daily. 8. Atorvastatin 80 mg daily. 9. Aspirin 81 mg daily. 10. Oxygen 2 liters via nasal cannula at bedtime. 11. Warfarin as directed by the [facility] clinic. 12. Prilosec. 13. Flomax. PHYSICAL EXAMINATION: VITALS: Temperature 36.7, pulse 91, respiratory rate 12, blood pressure 109/72, currently saturating 94% on 3 liters nasal cannula. GENERAL: Awake, alert, oriented x3, in no acute distress, sitting upright in bed, eating dinner. HEENT: Normocephalic, atraumatic. Pupils equal, round, reactive to light and accommodation. Extraocular muscles intact. Anicteric sclerae. Moist mucous membranes. NECK: No JVD, no bruit. CARDIOVASCULAR: Regular, but distant. Unable to appreciate any murmurs, rubs or gallops. PULMONARY: Decreased air sounds in the bilateral bases with bibasilar crackles, no rhonchi or wheezing. ABDOMEN: Distended. Bowel sounds x4. No rebound, guarding, tenderness. Unable to appreciate any organomegaly. EXTREMITIES: +1 bilateral lower extremity pitting edema. No clubbing or cyanosis. +1 pedal pulses bilaterally. SKIN: Warm and dry with chronic venous stasis changes of the bilateral lower extremities. TEST RESULTS: Chest x-ray performed today was read as progression of mild interstitial pulmonary edema and small bilateral pleural effusions/densities. LABORATORY STUDIES OF SIGNIFICANCE: Sodium 136, potassium 3.8, BUN 69, creatinine 2.24, troponin 2.67 which is chronically elevated. IMPRESSION: 1. Acute decompensated systolic heart failure with recent 11.5 pound weight gain. 2. Severe ischemic cardiomyopathy. 3. Obesity hypoventilation. 4. Mural thrombus, on chronic anticoagulation. 5. Stage IV chronic kidney disease. 6. Coronary artery disease. 7. Diabetes. RECOMMENDATIONS: It was my pleasure to see the patient in consultation today. At his most recent hospitalization for which he was just discharged on 04/06/2019, the patient responded to IV Lasix drip over several days, so that will be reinstituted at this time. We will start on the lower side of 20 mg per hour. We will keep close watch with q. 4 BMP on his electrolytes and will ask our Nephrology colleagues for their input as well. Otherwise, he will be continued on his other outpatient cardiac medications. Strict I's and O's should be maintained. Given the patient's multiple comorbidities, code status should be addressed and possibly even Palliative Care evaluation during his hospital stay. CISCO
--- NOTE | 2019-04-25 19:19 | Nephrology Consultation ---
Date of Consultation April 25, 2019 Assessment & Plan (1) CKD (chronic kidney disease) stage 3, GFR 30-59 ml/min: baseline creatinine 1.7-2.0 as outpatient last month; presents w/ creatinine 2.2-2.3. bland urine sediment. ckd likely multifactorial from DM, HTN, HF/cardiorenal syndrome and large dose obligate diuretics. he has bland urine sediment w/o evidence of infection; no dipstick proteinuria, some persistent microhematuria. chemistries are acceptable for now. SBP on lower side (for him) in 90-100s > will follow; would not change meds for now. mild anemia. -daily bmp -HF measures as below -continue lasix gtt, K supplementation as currently ordered -on spironolactone as well -will need OP renal f/u after d/c Present on Admission?: Yes (2) Acute on chronic systolic CHF (congestive heart failure): cardiology following; pt w/ mild troponin bump, trending down now. -on lasix gtt at 20 mg / hr -recommend daily standing wt -ordered FR 1.5L /day; cont low Na diet Present on Admission?: Yes History of Present Illness Reason for Consultation: CKD4 Requesting Physician: Dr Garcia Attending Physician: Avis Davis, DO History of Present Illness 79 y/o M whom I'm asked to see for CKD 4 was admitted today for acute on chronic systolic HF in the setting of severe ischemic [employer]. He gained 11.5 pounds after recent d/c from here on 04/06 and presented here w/ 2 days of progressive exertional dyspnea. His OP creatinine in [facility] labs runs 1.7-2.0 in February/ March 2019, for eGFR low 30s. His creatinien todya is 2.3. Does not follow w/ [facility] nephro. Other PMH includes CAD s/p 08/2018 multivessel stenting and EF in spring 2018 30%, L ventricular thrombus on coumadin, DM2 w/ A1c last month 10.3%, CKD3, HTN. He was admitted here from 04/03-04/06 for acute on chronic systolic HF; he had a lasix gtt in house and was d/c on torsemide 60/40, metolazone 2.5 mg q tuesday, 12.5 mg spironolactone daily, K 20 mEq daily. he follows w/ [facility]. he endorses 6 wks of orthopnea, increasing LE edema and abdominal girth as well as weight gain though he can't characterize that well, states there were issues w/ his scale at home. States he takes advil a few times weekly. Allergies Allergy/AdvReac Type Severity Reaction Status Date / Time No Known Allergies Allergy Verified 04/25/19 11:13 Home Medications Home Medications Medication Instructions Recorded Confirmed Type aspirin 81 mg PO QAM 07/10/18 04/25/19 History atorvastatin [Lipitor] 80 mg PO DAILY 07/10/18 04/25/19 History calcium polycarbophil [Fiber 1 tab PO QAM 07/10/18 04/25/19 History Therapy (ca polycarboph)] cholecalciferol (vitamin D3) 1 tab PO DAILY 07/10/18 04/25/19 History [Vitamin D3] nitroglycerin [Nitrostat] 0.4 mg SUBLINGUAL DIRECTED PRN 07/10/18 04/25/19 History omeprazole 20 mg PO BID 07/10/18 04/25/19 History tamsulosin 0.4 mg PO DAILY 07/10/18 04/25/19 History Lantus Solostar U-100 Insulin 60 unit SC BID 04/03/19 04/25/19 History Novolog Flexpen U-100 Insulin 30 unit SC ACHS 04/03/19 04/25/19 History melatonin 15 mg PO HS 04/03/19 04/25/19 History spironolactone [Aldactone] 12.5 mg PO DAILY 04/03/19 04/25/19 History metoprolol succinate 50 mg PO QAM #30 tab 04/06/19 04/25/19 Rx warfarin [Coumadin] 7.5 mg PO MoFr@1600 #30 tab 04/06/19 04/25/19 Rx warfarin [Coumadin] 10 mg PO SuTuWeThSa@1600 #30 tab 04/06/19 04/25/19 Rx albuterol sulfate 2 puff INHALATION Q6H PRN 04/25/19 04/25/19 History clopidogrel 75 mg PO QAM 04/25/19 04/25/19 History docusate sodium 200 mg PO DAILY 04/25/19 04/25/19 History isosorbide mononitrate 30 mg PO QAM 04/25/19 04/25/19 History metolazone 2.5 mg PO MO 04/25/19 04/25/19 History potassium chloride 20 meq PO [id number] 04/25/19 04/25/19 History potassium chloride 40 meq PO MO 04/25/19 04/25/19 History sertraline 50 mg PO DAILY 04/25/19 04/25/19 History torsemide [Demadex] 40 mg PO QPM 04/25/19 04/25/19 History torsemide [Demadex] 60 mg PO QAM 04/25/19 04/25/19 History Patient History Medical History Hypertension HLD (hyperlipidemia) Ischemic cardiomyopathy (Chronic) Critical surgical severity coronary artery disease with patient declining surgical revascularization BPH (benign prostatic hyperplasia) CAD (coronary artery disease) Critical surgical severity coronary artery disease with patient declining surgical revascularization intervention cardiac catheterization 04/2018 demonstrating critical coronary disease with eccentric high-grade distal left main stenosis, high-grade narrowings of all major left coronary anatomy including 90% proximal LAD, 90% ramus intermedius, 70% proximal circumflex, and 90% narrowing of a large obtuse marginal branch vessel. Left ventricular ejection fraction 20 -25% per echocardiogram and left ventriculogram. Acute on chronic systolic CHF (congestive heart failure) (Acute) Elevated troponin (Chronic) Diabetes mellitus type II, uncontrolled (Chronic) Chronic respiratory failure (Chronic) 2 L NC home O2 PRN CKD (chronic kidney disease), stage III (Chronic) Creatinine at baseline Chronic systolic HF (heart failure) (Chronic) 2/2 severe ischemic cardiomyopathy with apical thrombus Mural thrombus of left ventricle (Chronic) Diagnosed in April 2018 at [facility]. 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) NSTEMI (non-ST elevated myocardial infarction) (Resolved) Surgical History History of total bilateral knee replacement History of appendectomy History of permanent cardiac pacemaker placement (Chronic) Functioning appropriately per past interrogations and current examination History of total knee arthroplasty (Resolved) b/l Status post coronary artery bypass graft (Inactive) Family History Father Stroke Other Heart disease Hypertension Social History Preferred Language: Kyrgyz Communication Ability: Effective Visual Impairment: No Limitations Beliefs That Will Affect Care: None marital status: Current Living Situation: Spouse Feels Safe at Home: Yes Safety Concerns: Feels Safe At This Time Smoking Status: Never smoker Do You Dip or Chew Tobacco: No (former, quit "years ago") Second Hand Exposure: No Hx Alcohol Use: No Hx Substance Use: No Review of Systems Review of Systems: All systems reviewed & are unremarkable except as noted in HPI & below Constitutional: + fatigue and + weight gain Eyes: no worsening vision Ear, Nose, Mouth, Throat: + dry mouth (marked thirst) Respiratory: + dyspnea and + dyspnea on exertion Cardiovascular: + dyspnea on exertion and + edema; no chest pain and no palpitations Gastrointestinal: as per Subjective / HPI and + early satiety Genitourinary: no dysuria, no urinary frequency and no urinary hesitancy Musculoskeletal: + swelling; no muscle weakness Integumentary: no rash and no non-healing lesions Neurologic: + generalized weakness Psychiatric: no behavioral changes Endocrine: + fatigue Hematologic / Lymphatic: no easy bleeding Physical Exam Constitutional: well developed, + morbidly obese and cooperative sitting up in zelda on 02nc A& 0 x 3 Eyes: EOM intact bilaterally ENMT: Ears: no external ear abnormality Nose: no external nose abnormality Mouth: + dry oral mucous membranes Neck: no nuchal rigidity Respiratory: normal respiratory effort Auscultation: + diminished lung sounds Cardiovascular: Rate/Rhythm: regular rate and regular rhythm Extremities: + edema (3+ BLE) Gastrointestinal (Abdomen): Inspection/Auscultation: + abdomen distended and normal bowel sounds Percussion/Palpation: abdomen soft; abdomen nontender Musculoskeletal: no cyanosis or clubbing, extremities motor strength 5/5 Extremities: strength 5/5 throughout Skin: no rashes, warm and dry Neurologic: sarah, fluent speech, no tremor Psychiatric: A+Ox3, euthymic affect Speech: normal rate/rhythm/volume of speech Insight: + limited insight Results & Data Vital Signs (Past 12 Hours) Vital Signs Temp Pulse Pulse Resp BP BP Pulse Ox 04/25/19 18:57 36.6 C 88 20 98/68 L 96 07/03/19 17:47 84 04/25/19 15:00 36.7 C 91 H 24 109/72 94 04/25/19 14:12 82 20 104/75 95 04/25/19 13:37 83 20 113/69 95 04/25/19 13:34 82 21 116/67 96 04/25/19 11:36 88 21 110/63 96 04/25/19 10:28 36.6 C 92 H 36 H 154/82 H 95 04/25/19 10:19 87 36 H 94 Laboratory Results Abnormal lab results 04/25/19 04/25/19 04/25/19 Range/Units 10:30 10:30 10:30 RBC 3.76 L (4.7-6.1) M/uL Hgb 12.0 L (14.0-18.0) g/dL Hct 36.6 L (42-52) % RDW Std Deviation 54.3 H (36.4-46.3) fL RDW Coeff of Marli 15.4 H (11.5-14.5) % MPV 11.4 H (7.4-10.4) fL Immature Gran # (Auto) 0.03 H (0.00-0.02) K/uL Neut # (Auto) 7.34 H (1.4-6.5) K/uL Lymph # (Auto) 1.05 L (1.2-3.4) K/uL Kimble # (Auto) 0.97 H (0.11-0.59) K/uL PT 34.5 H (9.0-12.0) Seconds INR 3.7 H (0.9-1.1) APTT 35.6 H (21.0-31.0) Seconds Chloride (98-107) mmol/L Carbon Dioxide (21-32) mmol/L BUN 72 H (7-18) mg/dl Creatinine 2.28 H (0.6-1.4) mg/dl BUN/Creatinine Ratio 31.4 H (10-20) Glucose 174 H (70-99) mg/dl POC Glucose (70-99) AST 46 H (15-37) U/L Troponin I 2.750 H* (0-0.045) ng/ml NT-Pro-B Natriuret Pep 05023 H (0-1800) pg/ml Albumin 3.1 L (3.4-5.0) gm/dl Albumin/Globulin Ratio 0.8 L (0.9-2) Urine Blood (Negative) U Hyaline Cast (Auto) (0-5) /lpf U Epithel Cells (Auto) (0-5) /lpf 04/25/19 04/25/19 04/25/19 Range/Units 11:20 15:30 16:07 RBC (4.7-6.1) M/uL Hgb (14.0-18.0) g/dL Hct (42-52) % RDW Std Deviation (36.4-46.3) fL RDW Coeff of Marli (11.5-14.5) % MPV (7.4-10.4) fL Immature Gran # (Auto) (0.00-0.02) K/uL Neut # (Auto) (1.4-6.5) K/uL Lymph # (Auto) (1.2-3.4) K/uL Kimble # (Auto) (0.11-0.59) K/uL PT (9.0-12.0) Seconds INR (0.9-1.1) APTT (21.0-31.0) Seconds Chloride 97 L (98-107) mmol/L Carbon Dioxide 33 H (21-32) mmol/L BUN 69 H (7-18) mg/dl Creatinine 2.24 H (0.6-1.4) mg/dl BUN/Creatinine Ratio 30.8 H (10-20) Glucose 147 H (70-99) mg/dl POC Glucose 113 H (70-99) AST (15-37) U/L Troponin I 2.670 H* (0-0.045) ng/ml NT-Pro-B Natriuret Pep (0-1800) pg/ml Albumin (3.4-5.0) gm/dl Albumin/Globulin Ratio (0.9-2) Urine Blood Trace H (Negative) U Hyaline Cast (Auto) 5-10 H (0-5) /lpf U Epithel Cells (Auto) 5-10 H (0-5) /lpf Diagnostic Findings TTE 01/2019 LVEF 30 to 34% with moderate reduction in left ventricular systolic function, moderate diffuse left ventricular hypokinesis, left atrium severely enlarged, pulmonary hypertension cxr today Progression of the mild interstitial pulmonary edema and small bilateral pleural effusion/densities.
[2019-04-25 20:05] LABS: Calcium 9.2 mg/dl (8.5-10.1); Creatinine Clr Calc Pharmacy 37.8 ml/min; Est GFR (African American) 31.2; Est GFR (Non-African American) 26.9; Potassium 3.9 mmol/L (3.5-5.1)
[2019-04-25 20:13] LABS: Troponin I 2.51 ng/ml (0-0.045)
[2019-04-25] MEDS: PANTOprazole 40 MG TAB PO SCH (20:44)
[2019-04-25] MEDS ORDERED: INSULIN GLARGINE SOLOSTAR 100 UNITS/ML 3 ML PEN SC ONE (21:00)
[2019-04-25] MEDS ORDERED: ZOLPIDEM TARTRATE 5 MG TAB PO ONE (21:43)
[2019-04-26] MEDS: FUROSEMIDE 100 MG in DEXTROSE 5% 90 ML IV SCH ×5 (01:15→21:55)
[2019-04-26] MEDS ORDERED: INSULIN ASPART 100 UNITS/ML 3 ML PEN SC SCH ×2 (02:00)
[2019-04-26 06:12] LABS: Basophils # (auto) 0.03 K/uL (0-0.2); Basophils % (auto) 0.3 %; Eosinophils % (auto) 2.1 %; Hematocrit (blood only) 39.3 % (42-52); Hemoglobin 12.8 g/dL (14.0-18.0); Immature Granulocytes # (auto) 0.03 K/uL (0.00-0.02); Immature Granulocytes % (auto) 0.3 %; Lymphocytes # (auto) 1.07 K/uL (1.2-3.4); Lymphocytes % (auto) 11.4 %; Mean Corpuscular Hgb Conc 32.6 g/dL (32-36); Mean Corpuscular Volume 100.3 fL (80-100); Mean Platelet Volume 11.3 fL (7.4-10.4); Monocytes # (auto) 1.02 K/uL (0.11-0.59); Monocytes % (auto) 10.9 %; Neutrophils # (auto) 7.02 K/uL (1.4-6.5); Platelet Count 192 K/uL (130-400); RDW Coefficient of Variation 15.5 % (11.5-14.5); RDW Standard Deviation 56.4 fL (36.4-46.3); Red Blood Count 3.92 M/uL (4.7-6.1); White Blood Count 9.37 K/uL (4.8-10.8)
[2019-04-26 06:23] LABS: INR 3.2 (0.9-1.1)
[2019-04-26 06:47] LABS: BUN Creatinine Ratio 32.2 (10-20); Calcium 9.1 mg/dl (8.5-10.1); Creatinine Clr Calc Pharmacy 40.2 ml/min; Est GFR (African American) 33.9; Est GFR (Non-African American) 29.3; Magnesium 2.4 mg/dl (1.8-2.4); Potassium 3.4 mmol/L (3.5-5.1)
[2019-04-26] MEDS: INSULIN ASPART 100 UNITS/ML 3 ML PEN SC SCH ×4 (08:15→20:58)
[2019-04-26] MEDS: DOCUSATE SODIUM 100 MG CAP PO SCH (08:18)
[2019-04-26] MEDS: SPIRONOLACTONE 25 MG TAB PO SCH (08:18)
[2019-04-26] MEDS: ISOSORBIDE MONO EXTENDED REL 60 MG TABCR PO SCH (08:19)
[2019-04-26] MEDS: SERTRALINE HCL 50 MG TABLET PO SCH (08:19)
[2019-04-26] MEDS: CHOLECALCIFEROL 1,000 UNITS TAB PO SCH (08:19)
[2019-04-26] MEDS: ATORVASTATIN 40 MG TAB PO SCH (08:19)
[2019-04-26] MEDS: ASPIRIN 81 MG ECTAB PO SCH (08:19)
[2019-04-26] MEDS: METOPROLOL SUCC 50MG EXT REL TAB PO SCH (08:19)
[2019-04-26] MEDS: CALCIUM POLYCARBOPHIL 625MG TAB PO SCH (08:19)
[2019-04-26] MEDS: CLOPIDOGREL BISULFATE 75 MG TAB PO SCH (08:19)
[2019-04-26] MEDS: POTASSIUM CHLORIDE 20 MEQ TABCR PO SCH (08:19)
[2019-04-26] MEDS: PANTOprazole 40 MG TAB PO SCH ×2 (08:19→20:26)
[2019-04-26] MEDS: TAMSULOSIN HCL 0.4 MG CAP PO SCH (08:19)
[2019-04-26] MEDS ORDERED: INSULIN GLARGINE SOLOSTAR 100 UNITS/ML 3 ML PEN SC SCH (09:00)
[2019-04-26] MEDS ORDERED: POTASSIUM CHLORIDE 10 MEQ TABCR PO STA (09:44)
--- NOTE | 2019-04-26 09:44 | Cardiology Progress Note ---
Date of Service April 26, 2019 Assessment & Plan (1) Acute on chronic systolic CHF (congestive heart failure): symptomatically improving diuresing well on lasix gtt renal function stable appreciate nephrology input cont gtt, follow I/O's closely review dietary restrictions, significant noncompliance component (2) CKD (chronic kidney disease) stage 3, GFR 30-59 ml/min: stable cont to follow (3) Left ventricular apical thrombus: INR of 3.2 today restart warfarin (4) Ischemic cardiomyopathy: stable cont metoprolol and spironolactone may consider addition of Corlanor prior to discharge (5) CAD (coronary artery disease): stable cont asa and plavix (6) Mural thrombus of left ventricle: Subjective Pt seen and examined, oob in chair, family at bedside. States that he's feeling better today. Breathing has improved and abdomen slightly less distended. Denies cp, palpitations, lightheadedness or dizziness. tele reviewed: sinus rhythm with vpacing, rare pvc's Review of Systems Review of Systems: All systems reviewed & are unremarkable except as noted in HPI & below Physical Exam Physical Exam: General: Awake, alert and oriented x 3. No acute distress. HEENT: Normocephalic, atraumatic. Pupils equal, round and reactive to light and accommodation. Extraocular muscles are intact. Anicteric sclera. Moist mucous membranes. Neck: No JVD. No bruit. Cardiovascular: Regular. Positive S-4. Normal S-1 and S-2. No S-3. No murmurs or rubs. Pulmonary: Clear to auscultation B/L. No rales, rhonchi or wheezing Abdomen: Distended. Bowel sounds x 4. No rebound, guarding or tenderness. No organomegaly. Extremities: No clubbing, cyanosis. +1 b/l LE edema. +2 pedal pulses bilaterally. Skin: Warm and dry.chronic venous stasis changes. Results & Data Vital Signs (Past 12 Hours) Vital Signs Temp Pulse Resp BP Pulse Ox 04/26/19 06:57 36.5 C 84 16 112/74 93 04/26/19 01:54 36.4 C L 84 18 118/73 96 04/25/19 23:30 36.7 C 86 16 113/70 92
--- NOTE | 2019-04-26 16:08 | Nephrology Progress Note ---
Date of Service April 26, 2019 Assessment & Plan (1) CKD (chronic kidney disease) stage 3, GFR 30-59 ml/min: baseline creatinine 1.7-2.0 as outpatient last month; creatinine down to 2.1 today. bland urine sediment. ckd likely multifactorial from DM, HTN, HF/cardiorenal syndrome and large dose obligate diuretics. chemistries are acceptable. -daily bmp -HF measures as below -continue lasix gtt, K supplementation as currently ordered -on spironolactone as well -will need OP renal f/u after d/c (2) Acute on chronic systolic CHF (congestive heart failure): cardiology following; pt w/ mild troponin bump, trending down now. -on lasix gtt at 20 mg / hr -recommend daily standing wt -Continue 1.5L /day; cont low Na diet Subjective Patient seen in follow up for ML on CKD and volume overload. He is breathing better. he was sitting up in the chair. Diuresing well Review of Systems Review of Systems: All systems reviewed & are unremarkable except as noted in HPI & below Physical Exam Physical Exam: General exam: Appears comfortable, no acute distress HEENT: Pupils are equal and reactive to light Neck: No JVD, neck is supple trachea is midline Respiratory system: Reduced breath sounds bilaterally. Gastrointestinal: Abdomen is soft, non distended, non tender, bowel sounds are present CVS: Regular rate and rhythm. No murmurs, rubs or gallops Musculoskeletal: No joint or muscle tenderness Extremities: Non tender, 1+ edema, peripheral pulses are present Neuro: Oriented, no tremors, no focal neurological deficits Skin: No rashes Results & Data Vital Signs (Past 12 Hours) Vital Signs Temp Pulse Resp BP Pulse Ox 04/26/19 15:04 36.4 C L 81 20 107/63 94 04/26/19 11:13 36.4 C L 93 H 22 142/93 H 96 04/26/19 06:57 36.5 C 84 16 112/74 93 Laboratory Results Laboratory Results - last 24 hr 04/25/19 04/25/19 04/25/19 15:30 16:07 19:36 WBC RBC Hgb Hct MCV MCH MCHC RDW Std Deviation RDW Coeff of Marli Plt Count MPV Immature Gran % (Auto) Neut % (Auto) Lymph % (Auto) Davison % (Auto) Eos % (Auto) Baso % (Auto) Immature Gran # (Auto) Neut # (Auto) Lymph # (Auto) Davison # (Auto) Eos # (Auto) Baso # (Auto) PT INR Sodium 136 138 Potassium 3.8 3.9 Chloride 97 L 98 Carbon Dioxide 33 H 34 H Anion Gap 6.0 6.0 BUN 69 H 72 H Creatinine 2.24 H 2.25 H Est Cr Clr Drug Dosing 38.0 37.8 Est GFR ( Amer) 31.4 31.2 Est GFR (Non-Af Amer) 27.1 26.9 BUN/Creatinine Ratio 30.8 H 32.0 H Glucose 147 H 202 H POC Glucose 113 H Estimat Average Glucose Hemoglobin A1c Calcium 9.1 9.2 Magnesium Troponin I 2.670 H* 2.510 H* 04/25/19 04/26/19 04/26/19 19:57 01:56 05:35 WBC 9.37 RBC 3.92 L Hgb 12.8 L Hct 39.3 L MCV 100.3 H MCH 32.7 MCHC 32.6 RDW Std Deviation 56.4 H RDW Coeff of Marli 15.5 H Plt Count 192 MPV 11.3 H Immature Gran % (Auto) 0.3 Neut % (Auto) 75.0 Lymph % (Auto) 11.4 Davison % (Auto) 10.9 Eos % (Auto) 2.1 Baso % (Auto) 0.3 Immature Gran # (Auto) 0.03 H Neut # (Auto) 7.02 H Lymph # (Auto) 1.07 L Davison # (Auto) 1.02 H Eos # (Auto) 0.20 Baso # (Auto) 0.03 PT INR Sodium Potassium Chloride Carbon Dioxide Anion Gap BUN Creatinine Est Cr Clr Drug Dosing Est GFR ( Amer) Est GFR (Non-Af Amer) BUN/Creatinine Ratio Glucose POC Glucose 195 H 170 H Estimat Average Glucose Hemoglobin A1c Calcium Magnesium Troponin I 04/26/19 04/26/19 04/26/19 05:35 05:35 05:35 WBC RBC Hgb Hct MCV MCH MCHC RDW Std Deviation RDW Coeff of Marli Plt Count MPV Immature Gran % (Auto) Neut % (Auto) Lymph % (Auto) Davison % (Auto) Eos % (Auto) Baso % (Auto) Immature Gran # (Auto) Neut # (Auto) Lymph # (Auto) Davison # (Auto) Eos # (Auto) Baso # (Auto) PT 30.0 H INR 3.2 H Sodium 138 Potassium 3.4 L Chloride 96 L Carbon Dioxide 35 H Anion Gap 7.0 BUN 68 H Creatinine 2.10 H Est Cr Clr Drug Dosing 40.2 Est GFR ( Amer) 33.9 Est GFR (Non-Af Amer) 29.3 BUN/Creatinine Ratio 32.2 H Glucose 114 H POC Glucose Estimat Average Glucose Pending Hemoglobin A1c Pending Calcium 9.1 Magnesium 2.4 Troponin I 04/26/19 04/26/19 07:12 11:11 WBC RBC Hgb Hct MCV MCH MCHC RDW Std Deviation RDW Coeff of Marli Plt Count MPV Immature Gran % (Auto) Neut % (Auto) Lymph % (Auto) Davison % (Auto) Eos % (Auto) Baso % (Auto) Immature Gran # (Auto) Neut # (Auto) Lymph # (Auto) Davison # (Auto) Eos # (Auto) Baso # (Auto) PT INR Sodium Potassium Chloride Carbon Dioxide Anion Gap BUN Creatinine Est Cr Clr Drug Dosing Est GFR ( Amer) Est GFR (Non-Af Amer) BUN/Creatinine Ratio Glucose POC Glucose 104 H 218 H Estimat Average Glucose Hemoglobin A1c Calcium Magnesium Troponin I
[2019-04-26 16:28] LABS: Creatinine Clr Calc Pharmacy 42.8 ml/min; Est GFR (African American) 36.6; Est GFR (Non-African American) 31.6; Magnesium 2.5 mg/dl (1.8-2.4); Potassium 3.5 mmol/L (3.5-5.1)
[2019-04-26] MEDS ORDERED: WARFARIN SOD 10 MG TAB PO ONE (17:30)
--- NOTE | 2019-04-26 17:52 | Hospitalist Progress Note ---
Date of Service April 26, 2019 Assessment & Plan (1) Acute on chronic systolic CHF (congestive heart failure): Hypervolemia is improved. Persistent pitting edema and dyspnea on exertion with orthopnea worse from baseline. Requested daily standing weights. Cont Lasix drip, 2gm salt restricted diet and 1500mL fluid restriction. TEDs to lower extremities. Monitoring K/Mg and repleting as needed while on Lasix drip. Renal function is improving. (2) Elevated troponin: Demand ischemia in setting of cardiomyopathy. (3) CAD (coronary artery disease): stable without chest pain, Cont medical management including Plavix, Liptor, ASA 81, Imdur 30, Toprol XL 50. (4) Ischemic cardiomyopathy: Cont with medical management as above and spironolactone. (5) Left ventricular apical thrombus: Supratherapeutic INR on admission, and warfarin was held. INR 3.2 this am. Warfarin restarted. Daily INR (6) Diabetes mellitus type II, uncontrolled: Uncontrolled A1C, however, too much insulin causing hypoglycemia today. Stopped glycemic pharmacy management and reduced carb coverage and decreased glargine to 20 Units BID. (7) CKD (chronic kidney disease) stage 3, GFR 30-59 ml/min: At baseline with some improvement to 2. baseline cr 2.2 (8) Hypertension: At goal, cont Lasix drip, Toprol XL, aldactone. (9) BPH (benign prostatic hyperplasia): Continue Flomax (10) Depression: Mood stable continue Zoloft (11) GERD (gastroesophageal reflux disease): As Omeprazole and Plavix interact, possibly decreasing the effectiveness of the Plavix, this was switched to Protonix 40mg PO bID. Defer to PCP to de- escalate therapy to 40mg daily for maintenance based on symptom control. (12) DVT prophylaxis: therapeutic on warfarin Full Code Dispo-cont PCU Avis Davis DO [facility] Hospitalist Subjective Patient is doing well. Reports an improvement in shortness of breath. Still requiring oxygen with baseline oxygen needs only at night. He is able to ambulate to the bathroom independently. Otherwise denies any chest pain, nausea or other symptoms. Some swelling is present bilaterally in his legs, and he reports his abdomen feeling much tighter yesterday. He has urinated approximately 1 L since 7 AM this morning, and net output was approximately 1 L overnight Review of Systems Review of Systems: All systems reviewed & are unremarkable except as noted in HPI & below Physical Exam Physical Exam: CONSTITUTIONAL: obese, vitals as above, generally well- appearing EYES: normal conjunctivae, no scleral icterus ENT: MMM RESPIRATORY: clear to auscultation bilaterally, no crackles, rales or wheezes, normal respiratory effort CARDIOVASCULAR: regular rate and rhythm, S1 and 2 heard without murmurs, gallops or rubs, no JVD, 2+ pitting edema to knees bilaterally GASTROINTESTINAL: normal bowel sounds, soft, nontender, nondistended MUSCULOSKELETAL: strength 5/5 throughout, head is normocephalic and atraumatic, no gross focal deficits. SKIN: warm and dry NEUROLOGIC: CN 2-12 grossly intact, normal cognition and speech, no gross focal deficits. PSYCHIATRIC: alert cooperative and oriented to person, place and time. Results & Data Vital Signs (Past 12 Hours) Vital Signs Temp Pulse Resp BP Pulse Ox 04/26/19 15:04 36.4 C L 81 20 107/63 94 04/26/19 11:13 36.4 C L 93 H 22 142/93 H 96 04/26/19 06:57 36.5 C 84 16 112/74 93 Laboratory Results Short CBC 04/26/19 Range/Units 05:35 WBC 9.37 (4.8-10.8) K/uL Hgb 12.8 L (14.0-18.0) g/dL Hct 39.3 L (42-52) % Plt Count 192 (130-400) K/uL BMP 04/25/19 04/26/19 04/26/19 19:36 05:35 15:43 Sodium 138 138 140 Potassium 3.9 3.4 L 3.5 Chloride 98 96 L 98 Carbon Dioxide 34 H 35 H 36 H BUN 72 H 68 H 65 H Creatinine 2.25 H 2.10 H 1.97 H Glucose 202 H 114 H 55 L Calcium 9.2 9.1 9.0 Cardiac Enzymes 04/25/19 Range/Units 19:36 Troponin I 2.510 H* (0-0.045) ng/ml Medications Administered Current Inpatient Medications Acetaminophen (Tylenol) 650 mg PO Q4H PRN PRN Reason: Pain or Fever Stop: 05/25/19 15:24 Aspirin (Ecotrin Ectab) 81 mg PO QAM [facility] Stop: 05/26/19 08:59 Last Admin: 04/26/19 08:19 Dose: 81 mg Documented by: Atorvastatin Calcium (Lipitor) 80 mg PO DAILY [facility] Stop: 05/26/19 08:59 Last Admin: 04/26/19 08:19 Dose: 80 mg Documented by: Calcium [facility]carbophil (F[facility]con) [facility] Stop: 05/26/19 08:59 Last Admin: 04/26/19 08:19 Dose: 1 tab Documented by: Clopidogrel [facility]ate (Plavix) [facility] Stop: 05/26/19 08:59 Last Admin: 04/26/19 08:19 Dose: 75 mg Documented by: Dextrose (Dextrose 50%) 25 - 50 ml IV UD PRN; Protocol PRN Reason: Hypoglycemia Protocol Stop: 05/25/19 15:24 Docusate Sodium (Colace) 200 mg PO DAILY [facility] Stop: 05/26/19 08:59 Last Admin: 04/26/19 08:18 Dose: 200 mg Documented by: Glucagon (Glucagen) 1 mg SQ UD PRN; Protocol PRN Reason: Hypoglycemia Protocol Stop: 05/25/19 15:24 Glucose (Glucose 40%) 15 - 30 gm PO UD PRN; Protocol PRN Reason: Hypoglycemia Protocol Stop: 05/25/19 15:24 Glucose (Dex4 Glucose) 4 - 8 tabs PO UD PRN; Protocol PRN Reason: Hypoglycemia Protocol Stop: 05/25/19 15:24 Furosemide 100 mg/ Dextrose 100 mls @ 20 mls/hr IV .Q5H [facility] Stop: 05/25/19 15:44 Last Admin: 04/26/19 16:40 Dose: 20 mg/hr, 20 mls/hr Documented by: Insulin Aspart (Novolog Flexpen) 0 units SC ACHS [facility] Stop: 05/25/19 16:29 Insulin Glargine (Lantus Solostar Pen) 20 units SC BID [facility]; Protocol Stop: 05/26/19 20:59 Isosorbide Mononitrate (Imdur Extended Rel) 30 mg PO [facility] Stop: 05/26/19 08:59 Last Admin: 04/26/19 08:19 Dose: 30 mg Documented by: Metoprolol Succinate (Toprol Xl) 50 mg PO [facility] Stop: 05/26/19 08:59 Last Admin: 04/26/19 08:19 Dose: 50 mg Documented by: Miscellaneous (Carbohydrates For Hypoglycemia) 15 - 30 gm PO UD PRN PRN Reason: Hypoglycemia Treatment Stop: 05/25/19 15:24 Last Admin: 04/26/19 16:37 Dose: 15 gm Documented by: Nitroglycerin (Nitrostat) 0.4 mg SL UD PRN PRN Reason: Chest Pain Stop: 05/25/19 15:24 Ondansetron HCl (Zofran) 4 mg IV Q6H PRN PRN Reason: Nausea Stop: 05/25/19 15:24 Pantoprazole Sodium (Protonix) 40 mg PO BID [facility]; Protocol Stop: 05/25/19 20:59 Last Admin: 04/26/19 08:19 Dose: 40 mg Documented by: Polyethylene Glycol (Miralax Powder Packet) 17 gm PO DAILY PRN PRN Reason: Constipation Stop: 05/25/19 15:24 Potassium Chloride (Klor-Con M20) 20 meq PO SuTuWeThFrSa@0900 [facility] Stop: 05/26/19 08:59 Last Admin: 04/26/19 08:19 Dose: 20 meq Documented by: Potassium Chloride (Klor-Con M20) 40 meq PO Mo@0900 [facility] Stop: 05/30/19 08:59 Sertraline HCl (Zoloft) 50 mg PO DAILY [facility] Stop: 05/26/19 08:59 Last Admin: 04/26/19 08:19 Dose: 50 mg Documented by: Spironolactone (Aldactone) 12.5 mg PO DAILY [facility] Stop: 05/26/19 08:59 Last Admin: 04/26/19 08:18 Dose: 12.5 mg Documented by: Tamsulosin HCl (Flomax) 0.4 mg PO DAILY [facility] Stop: 05/26/19 08:59 Last Admin: 04/26/19 08:19 Dose: 0.4 mg Documented by: Vitamin D (Vitamin D3) 1,000 units PO DAILY [facility] Stop: 05/26/19 08:59 Last Admin: 04/26/19 08:19 Dose: 1,000 units Documented by: Warfarin Sodium (Coumadin) 7.5 mg PO MoFr@1600 [facility] Stop: 05/27/19 15:59 Warfarin Sodium (Coumadin) 10 mg PO SuTuWeThSa@1600 [facility] Stop: 05/28/19 15:59 Warfarin Sodium (Coumadin) 10 mg PO NOW ONE Stop: 04/26/19 17:31 (1) Hypertension Hypertension type: essential hypertension Qualified Code(s): I10 - Essential (primary) hypertension
[2019-04-26] MEDS: INSULIN GLARGINE SOLOSTAR 100 UNITS/ML 3 ML PEN SC SCH (20:57)
[2019-04-26] MEDS: ZOLPIDEM TARTRATE 5 MG TAB PO PRN (22:16)
[2019-04-27] MEDS: FUROSEMIDE 100 MG in DEXTROSE 5% 90 ML IV SCH ×5 (02:38→20:40)
[2019-04-27 06:37] LABS: Hematocrit (blood only) 39.7 % (42-52); Hemoglobin 12.9 g/dL (14.0-18.0); Mean Corpuscular Hgb Conc 32.5 g/dL (32-36); Mean Corpuscular Volume 100.8 fL (80-100); Mean Platelet Volume 11.7 fL (7.4-10.4); Platelet Count 211 K/uL (130-400); RDW Coefficient of Variation 15.5 % (11.5-14.5); RDW Standard Deviation 56.2 fL (36.4-46.3); Red Blood Count 3.94 M/uL (4.7-6.1); White Blood Count 9.52 K/uL (4.8-10.8)
[2019-04-27 07:02] LABS: BUN Creatinine Ratio 33.5 (10-20); Creatinine Clr Calc Pharmacy 40.7 ml/min; Est GFR (African American) 34.5; Est GFR (Non-African American) 29.8; Magnesium 2.5 mg/dl (1.8-2.4); Potassium 3.6 mmol/L (3.5-5.1)
[2019-04-27 07:12] LABS: Estimated Average Glucose 243 mg/dl; Hemoglobin A1C 10.1 % (4.5-5.6)
[2019-04-27 07:25] LABS: INR 2.4 (0.9-1.1); Prothrombin Time 22.9 Seconds (9.0-12.0)
[2019-04-27] MEDS: PANTOprazole 40 MG TAB PO SCH ×2 (07:33→20:42)
[2019-04-27] MEDS: CLOPIDOGREL BISULFATE 75 MG TAB PO SCH (07:33)
[2019-04-27] MEDS: CHOLECALCIFEROL 1,000 UNITS TAB PO SCH (07:33)
[2019-04-27] MEDS: DOCUSATE SODIUM 100 MG CAP PO SCH (07:33)
[2019-04-27] MEDS: CALCIUM POLYCARBOPHIL 625MG TAB PO SCH (07:33)
[2019-04-27] MEDS: SERTRALINE HCL 50 MG TABLET PO SCH (07:34)
[2019-04-27] MEDS: ATORVASTATIN 40 MG TAB PO SCH (07:34)
[2019-04-27] MEDS: POTASSIUM CHLORIDE 20 MEQ TABCR PO SCH ×3 (07:34→20:42)
[2019-04-27] MEDS: ASPIRIN 81 MG ECTAB PO SCH (07:34)
[2019-04-27] MEDS: SPIRONOLACTONE 25 MG TAB PO SCH (07:34)
[2019-04-27] MEDS: TAMSULOSIN HCL 0.4 MG CAP PO SCH (07:34)
[2019-04-27] MEDS: INSULIN ASPART 100 UNITS/ML 3 ML PEN SC SCH ×4 (07:35→20:53)
[2019-04-27] MEDS: INSULIN GLARGINE SOLOSTAR 100 UNITS/ML 3 ML PEN SC SCH ×2 (07:37→20:52)
[2019-04-27] MEDS: METOPROLOL SUCC 50MG EXT REL TAB PO SCH (08:19)
[2019-04-27] MEDS: ISOSORBIDE MONO EXTENDED REL 60 MG TABCR PO SCH (08:19)
--- NOTE | 2019-04-27 12:36 | Cardiology Progress Note ---
Date of Service April 27, 2019 Assessment & Plan (1) Acute on chronic systolic CHF (congestive heart failure): symptomatically improving diuresing well on lasix gtt renal function stable appreciate nephrology input cont gtt, follow I/O's closely review dietary restrictions, significant noncompliance component cont to monitor on tele with continued gtt as long as continues to diurese and renal function remains stable (2) CKD (chronic kidney disease) stage 3, GFR 30-59 ml/min: stable cont to follow (3) Left ventricular apical thrombus: INR of 2.4 today warfarin restarted (4) Ischemic cardiomyopathy: stable cont metoprolol and spironolactone may consider addition of Corlanor prior to discharge (5) CAD (coronary artery disease): stable cont asa and plavix (6) Mural thrombus of left ventricle: Subjective Pt seen and examined, oob in chair. States that he's feeling well. Feels sob and edema are both improving but not yet back to baseline. Denies cp, palpitations, lightheadedness or dizziness. tele reviewed: v paced rhythm Review of Systems Review of Systems: All systems reviewed & are unremarkable except as noted in HPI & below Physical Exam Physical Exam: General: Awake, alert and oriented x 3. No acute distress. HEENT: Normocephalic, atraumatic. Pupils equal, round and reactive to light and accommodation. Extraocular muscles are intact. Anicteric sclera. Moist mucous membranes. Neck: No JVD. No bruit. Cardiovascular: Regular. Positive S-4. Normal S-1 and S-2. No S-3. 3/6 mid to late systolic ejection murmur, greatest at the right sternal border, second intercostal space with radiation to the bilateral carotids. No rubs. Pulmonary: Clear to auscultation bilaterally. No rales, rhonchi, or wheezing. Abdomen: Bowel sounds x 4, soft. No rebound, guarding or tenderness. No organomegaly. Extremities: No clubbing, cyanosis or edema. +2 pedal pulses bilaterally. Skin: Warm and dry. Results & Data Vital Signs (Past 12 Hours) Vital Signs Temp Pulse Pulse Resp BP Pulse Ox 04/27/19 11:47 36.3 C L 84 20 118/92 98 04/27/19 08:00 36.5 C 91 H 20 123/73 91 04/27/19 04:17 36.6 C 80 18 104/69 96 04/27/19 00:35 36.5 C 114 H 21 90/67 L 93
--- NOTE | 2019-04-27 14:31 | Hospitalist Progress Note ---
Date of Service April 27, 2019 Assessment & Plan (1) Acute on chronic systolic CHF (congestive heart failure): Still hypervolemic but continues to diurese on the Lasix drip. Cont daily standing weights and salt restricted diet. Cont Lasix drip and 1500mL fluid restriction. TEDs to lower extremities not recommended by nursing because of some blistering that is present on his lower extremities anteriorly. Monitoring K/Mg and repleting as needed while on Lasix drip. Renal function is improving. (2) Elevated troponin: Demand ischemia in setting of cardiomyopathy. (3) CAD (coronary artery disease): stable without chest pain, Cont medical management including Plavix, Liptor, ASA 81, Imdur 30, Toprol XL 50. (4) Ischemic cardiomyopathy: Cont with medical management as above and spironolactone. (5) Left ventricular apical thrombus: Therapeutic INR, cont warfarin daily which was started yesterday. Daily INR (6) Diabetes mellitus type II, uncontrolled: Uncontrolled A1C, however, too much insulin caused hypoglycemia yesterday. Cont glargine 20 Units BID and cont current sliding scale with carb coverage. (7) CKD (chronic kidney disease) stage 3, GFR 30-59 ml/min: At baseline. Cont to monitor daily while diuresing on lasix drip. (8) Hypertension: At goal, cont Lasix drip, Toprol XL, aldactone. (9) BPH (benign prostatic hyperplasia): Continue Flomax (10) Depression: Mood stable continue Zoloft (11) GERD (gastroesophageal reflux disease): As Omeprazole and Plavix interact, possibly decreasing the effectiveness of the Plavix, this was switched to Protonix 40mg PO bID. Defer to PCP to de- escalate therapy to 40mg daily for maintenance based on symptom control. (12) DVT prophylaxis: therapeutic on warfarin Full Code Dispo-cont PCU Avis Davis DO [facility] Hospitalist Subjective Feeling well but still with significant orthopnea-slept in recliner last night. Still requiring oxygen at rest which is more than his baseline. Still dyspneic on exertion and with 2+ pitting edema in his legs. He notes that when he elevates his legs in the recliner, he feels a fullness and a discomfort in his abdomen from the "fluid pushing up." Review of Systems Review of Systems: All systems reviewed & are unremarkable except as noted in HPI & below Physical Exam Physical Exam: CONSTITUTIONAL: obese, vitals as above, generally well- appearing EYES: normal conjunctivae, no scleral icterus ENT: MMM RESPIRATORY: clear to auscultation bilaterally, no crackles, rales or wheezes, normal respiratory effort CARDIOVASCULAR: regular rate and rhythm, S1 and 2 heard without murmurs, gall ops or rubs, no JVD, 2+ pitting edema to knees bilaterally GASTROINTESTINAL: normal bowel sounds, soft, nontender, nondistended, some ecchymosis on abdomen around insulin injection sites MUSCULOSKELETAL: strength 5/5 throughout, head is normocephalic and atraumatic, no gross focal deficits. SKIN: warm and dry, vesicular blisters on the anterior tibiae bilaterally. NEUROLOGIC: CN 2-12 grossly intact, normal cognition and speech, no gross focal deficits. PSYCHIATRIC: alert cooperative and oriented to person, place and time. Results & Data Vital Signs (Past 12 Hours) Vital Signs Temp Pulse Resp BP Pulse Ox 04/27/19 11:47 36.3 C L 84 20 118/92 98 04/27/19 08:00 36.5 C 91 H 20 123/73 91 04/27/19 04:17 36.6 C 80 18 104/69 96 Laboratory Results Short CBC 04/27/19 Range/Units 05:22 WBC 9.52 (4.8-10.8) K/uL Hgb 12.9 L (14.0-18.0) g/dL Hct 39.7 L (42-52) % Plt Count 211 (130-400) K/uL BMP 04/26/19 04/27/19 15:43 05:22 Sodium 140 139 Potassium 3.5 3.6 Chloride 98 95 L Carbon Dioxide 36 H 37 H BUN 65 H 69 H Creatinine 1.97 H 2.07 H Glucose 55 L 175 H Calcium 9.0 9.0 Medications Administered Current Inpatient Medications Acetaminophen (Tylenol) 650 mg PO Q4H PRN PRN Reason: Pain or Fever Stop: 05/25/19 15:24 Aspirin (Ecotrin Ectab) 81 mg PO QAM [facility] Stop: 05/26/19 08:59 Last Admin: 04/27/19 07:34 Dose: 81 mg Documented by: Atorvastatin Calcium (Lipitor) 80 mg PO DAILY [facility] Stop: 05/26/19 08:59 Last Admin: 04/27/19 07:34 Dose: 80 mg Documented by: Calcium Polycarbophil (Fibercon) 1 tab PO [facility] Stop: 05/26/19 08:59 Last Admin: 04/27/19 07:33 Dose: 1 tab Documented by: Clopidogrel Bisulfate (Plavix) 75 mg PO [facility] Stop: 05/26/19 08:59 Last Admin: 04/27/19 07:33 Dose: 75 mg Documented by: Dextrose (Dextrose 50%) 25 - 50 ml IV UD PRN; Protocol PRN Reason: Hypoglycemia Protocol Stop: 05/25/19 15:24 Docusate Sodium (Colace) 200 mg PO DAILY [facility] Stop: 05/26/19 08:59 Last Admin: 04/27/19 07:33 Dose: 200 mg Documented by: Glucagon (Glucagen) 1 mg SQ UD PRN; Protocol PRN Reason: Hypoglycemia Protocol Stop: 05/25/19 15:24 Glucose (Glucose 40%) 15 - 30 gm PO UD PRN; Protocol PRN Reason: Hypoglycemia Protocol Stop: 05/25/19 15:24 Glucose (Dex4 Glucose) 4 - 8 tabs PO UD PRN; Protocol PRN Reason: Hypoglycemia Protocol Stop: 05/25/19 15:24 Furosemide 100 mg/ Dextrose 100 mls @ 20 mls/hr IV .Q5H [facility] Stop: 05/25/19 15:44 Last Admin: 04/27/19 13:16 Dose: 20 mg/hr, 20 mls/hr Documented by: Insulin Aspart (Novolog Flexpen) 0 units SC ACHS [facility] Stop: 05/25/19 16:29 Last Admin: 04/27/19 11:59 Dose: 14 units Documented by: Insulin Glargine (Lantus Solostar Pen) 20 units SC BID [facility]; Protocol Stop: 05/26/19 20:59 Last Admin: 04/27/19 07:37 Dose: 20 units Documented by: Isosorbide Mononitrate (Imdur Extended Rel) 30 mg PO [facility] Stop: 05/26/19 08:59 Last Admin: 04/27/19 08:19 Dose: 30 mg Documented by: Metoprolol Succinate (Toprol Xl) 50 mg PO [facility] Stop: 05/26/19 08:59 Last Admin: 04/27/19 08:19 Dose: 50 mg Documented by: Miscellaneous (Carbohydrates For Hypoglycemia) 15 - 30 gm PO UD PRN PRN Reason: Hypoglycemia Treatment Stop: 05/25/19 15:24 Last Admin: 04/26/19 16:37 Dose: 15 gm Documented by: Nitroglycerin (Nitrostat) 0.4 mg SL UD PRN PRN Reason: Chest Pain Stop: 05/25/19 15:24 Ondansetron HCl (Zofran) 4 mg IV Q6H PRN PRN Reason: Nausea Stop: 05/25/19 15:24 Pantoprazole Sodium (Protonix) 40 mg PO BID [facility]; Protocol Stop: 05/25/19 20:59 Last Admin: 04/27/19 07:33 Dose: 40 mg Documented by: Polyethylene Glycol (Miralax Powder Packet) 17 gm PO DAILY PRN PRN Reason: Constipation Stop: 05/25/19 15:24 Potassium Chloride (Klor-Con M20) 40 meq PO BID [facility] Stop: 05/27/19 10:44 Last Admin: 04/27/19 11:23 Dose: 40 meq Documented by: Sertraline HCl (Zoloft) 50 mg PO DAILY [facility] Stop: 05/26/19 08:59 Last Admin: 04/27/19 07:34 Dose: 50 mg Documented by: Spironolactone (Aldactone) 12.5 mg PO DAILY [facility] Stop: 05/26/19 08:59 Last Admin: 04/27/19 07:34 Dose: 12.5 mg Documented by: Tamsulosin HCl (Flomax) 0.4 mg PO DAILY [facility] Stop: 05/26/19 08:59 Last Admin: 04/27/19 07:34 Dose: 0.4 mg Documented by: Vitamin D (Vitamin D3) 1,000 units PO DAILY [facility] Stop: 05/26/19 08:59 Last Admin: 04/27/19 07:33 Dose: 1,000 units Documented by: Warfarin Sodium (Coumadin) 7.5 mg PO MoFr@1600 [facility] Stop: 05/27/19 15:59 Warfarin Sodium (Coumadin) 10 mg PO SuTuWeThSa@1600 [facility] Stop: 05/28/19 15:59 Zolpidem Tartrate (Ambien) 5 mg PO HS PRN PRN Reason: Sleep Stop: 05/26/19 21:13 Last Admin: 04/26/19 22:16 Dose: 5 mg Documented by: (1) Hypertension Hypertension type: essential hypertension Qualified Code(s): I10 - Essential (primary) hypertension
[2019-04-27] MEDS: WARFARIN SOD 7.5 MG TAB PO SCH (16:24)
[2019-04-27] MEDS: ZOLPIDEM TARTRATE 5 MG TAB PO PRN (20:40)
--- NOTE | 2019-04-27 21:31 | Nephrology Progress Note ---
Date of Service April 27, 2019 Assessment & Plan (1) CKD (chronic kidney disease) stage 3, GFR 30-59 ml/min: baseline creatinine 1.7-2.0 as outpatient last month; creatinine down to 2 today. bland urine sediment. ckd likely multifactorial from DM, HTN, HF/cardiorenal syndrome and large dose obligate diuretics. chemistries are acceptable. -daily bmp -HF measures as below -continue lasix gtt, K supplementation as currently ordered -on spironolactone as well -cosider adding metolazone (2) Acute on chronic systolic CHF (congestive heart failure): cardiology following; pt w/ mild troponin bump, trending down now. -on lasix gtt at 20 mg / hr -recommend daily standing wt -Reduce FR to 1.2L /day; cont low Na diet Subjective Patient still SOB. He had a bad night. Still on oxygen. He was net negative 895mls. Has leg swelling. Review of Systems Review of Systems: All systems reviewed & are unremarkable except as noted in HPI & below Physical Exam Physical Exam: General exam: Appears comfortable, no acute distress HEENT: Pupils are equal and reactive to light Neck: No JVD, neck is supple trachea is midline Respiratory system: reduced breath sounds bilaterally. Gastrointestinal: Abdomen is soft, non distended, non tender, bowel sounds are present CVS: Regular rate and rhythm. No murmurs, rubs or gallops Musculoskeletal: No joint or muscle tenderness Extremities: Non tender, 2+ edema, peripheral pulses are present Neuro: Oriented, no tremors, no focal neurological deficits Skin: No rashes Results & Data Vital Signs (Past 12 Hours) Vital Signs Temp Pulse Resp BP Pulse Ox 04/27/19 19:07 36.8 C 88 19 117/104 H 98 04/27/19 15:30 36.4 C L 73 18 110/68 99 04/27/19 11:47 36.3 C L 84 20 118/92 98 Laboratory Results Laboratory Results - last 24 hr 04/26/19 04/27/19 04/27/19 05:35 05:22 05:22 WBC 9.52 RBC 3.94 L Hgb 12.9 L Hct 39.7 L MCV 100.8 H MCH 32.7 MCHC 32.5 RDW Std Deviation 56.2 H RDW Coeff of Marli 15.5 H Plt Count 211 MPV 11.7 H PT 22.9 H INR 2.4 H Sodium Potassium Chloride Carbon Dioxide Anion Gap BUN Creatinine Est Cr Clr Drug Dosing Est GFR ( Amer) Est GFR (Non-Af Amer) BUN/Creatinine Ratio Glucose POC Glucose Estimat Average Glucose 243 Hemoglobin A1c 10.1 H Calcium Magnesium 04/27/19 04/27/19 04/27/19 05:22 06:57 11:14 WBC RBC Hgb Hct MCV MCH MCHC RDW Std Deviation RDW Coeff of Marli Plt Count MPV PT INR Sodium 139 Potassium 3.6 Chloride 95 L Carbon Dioxide 37 H Anion Gap 7.0 BUN 69 H Creatinine 2.07 H Est Cr Clr Drug Dosing 40.7 Est GFR ( Amer) 34.5 Est GFR (Non-Af Amer) 29.8 BUN/Creatinine Ratio 33.5 H Glucose 175 H POC Glucose 208 H 298 H Estimat Average Glucose Hemoglobin A1c Calcium 9.0 Magnesium 2.5 H 04/27/19 04/27/19 16:21 20:51 WBC RBC Hgb Hct MCV MCH MCHC RDW Std Deviation RDW Coeff of Marli Plt Count MPV PT INR Sodium Potassium Chloride Carbon Dioxide Anion Gap BUN Creatinine Est Cr Clr Drug Dosing Est GFR ( Amer) Est GFR (Non-Af Amer) BUN/Creatinine Ratio Glucose POC Glucose 177 H 227 H Estimat Average Glucose Hemoglobin A1c Calcium Magnesium
[2019-04-28] MEDS: ACETAMINOPHEN 325 MG TAB PO PRN (01:13)
[2019-04-28] MEDS: FUROSEMIDE 100 MG in DEXTROSE 5% 90 ML IV SCH ×5 (01:22→21:10)
[2019-04-28 05:46] LABS: Hematocrit (blood only) 37.3 % (42-52); Hemoglobin 12.3 g/dL (14.0-18.0); Mean Corpuscular Volume 100.3 fL (80-100); Mean Platelet Volume 11.4 fL (7.4-10.4); Platelet Count 199 K/uL (130-400); RDW Coefficient of Variation 15.5 % (11.5-14.5); RDW Standard Deviation 56.7 fL (36.4-46.3); Red Blood Count 3.72 M/uL (4.7-6.1); White Blood Count 9.43 K/uL (4.8-10.8)
[2019-04-28 05:52] LABS: INR 2.9 (0.9-1.1); Prothrombin Time 27.2 Seconds (9.0-12.0)
[2019-04-28 06:22] LABS: BUN Creatinine Ratio 29.3 (10-20); Calcium 9.1 mg/dl (8.5-10.1); Creatinine Clr Calc Pharmacy 38.6 ml/min; Est GFR (African American) 32.2; Est GFR (Non-African American) 27.8; Magnesium 2.5 mg/dl (1.8-2.4); Potassium 4.1 mmol/L (3.5-5.1)
[2019-04-28] MEDS: ISOSORBIDE MONO EXTENDED REL 60 MG TABCR PO SCH (08:34)
[2019-04-28] MEDS: PANTOprazole 40 MG TAB PO SCH ×2 (08:34→19:59)
[2019-04-28] MEDS: METOPROLOL SUCC 50MG EXT REL TAB PO SCH (08:34)
[2019-04-28] MEDS: ATORVASTATIN 40 MG TAB PO SCH (08:35)
[2019-04-28] MEDS: CLOPIDOGREL BISULFATE 75 MG TAB PO SCH (08:35)
[2019-04-28] MEDS: DOCUSATE SODIUM 100 MG CAP PO SCH (08:35)
[2019-04-28] MEDS: POTASSIUM CHLORIDE 20 MEQ TABCR PO SCH ×2 (08:35→19:58)
[2019-04-28] MEDS: SPIRONOLACTONE 25 MG TAB PO SCH (08:36)
[2019-04-28] MEDS: TAMSULOSIN HCL 0.4 MG CAP PO SCH (08:36)
[2019-04-28] MEDS: ASPIRIN 81 MG ECTAB PO SCH (08:36)
[2019-04-28] MEDS: CHOLECALCIFEROL 1,000 UNITS TAB PO SCH (08:36)
[2019-04-28] MEDS: INSULIN GLARGINE SOLOSTAR 100 UNITS/ML 3 ML PEN SC SCH ×2 (08:36→21:15)
[2019-04-28] MEDS: CALCIUM POLYCARBOPHIL 625MG TAB PO SCH (08:36)
[2019-04-28] MEDS: SERTRALINE HCL 50 MG TABLET PO SCH (08:36)
[2019-04-28] MEDS: INSULIN ASPART 100 UNITS/ML 3 ML PEN SC SCH ×4 (08:37→21:15)
[2019-04-28] MEDS ORDERED: metOLazone 5 MG TABLET PO ONE (09:20)
--- NOTE | 2019-04-28 09:46 | Cardiology Progress Note ---
Date of Service April 28, 2019 Assessment & Plan (1) CHF (congestive heart failure): Acute on chronic heart failure with reduced ejection fraction due to underlying coronary heart disease, ischemic cardiomyopathy. Patient is currently on a furosemide infusion at 20 mg/h, 1.8 L yesterday. Wt 132.6 kg today, compared to 137 kg on admission, 131 kg yesterday however. Continue lasix infusion at 20 mg/hr, aldactone, metolazone 2.5 mg x 1 now. Follow electrolytes , BMP tomorrow. (2) Non-ST elevation DC (NSTEMI): Demand ischemic in setting of volume overload, h/o CAD incomplete revascularization with history of complex multi-vessel percutaneous intervention with Impella assist device support receiving a drug-eluting stent from the left main into the circumflex. The left anterior descending was treated with 2 drug- eluting stents in the ramus intermedius was treated with one drug-eluting stent, [facility] 09/05/18. Continue ASA , Clopidogrel . Imdur, Toprol, atorvastatin. (3) Left ventricular apical thrombus: Continue coumadain. (4) CKD (chronic kidney disease) stage 3, GFR 30-59 ml/min: Creatinine 2.19 , was 2.07 baseline in range of 1.8 -2. (5) Biventricular cardiac pacemaker in situ: BiV pacer, no defibrillator (pt preference when device placed) Subjective Chief complaint: Follow-up shortness of breath lower extremity edema Subjective: Patient sitting the bedside chair. Feeling better since initial admission on 04/25/2019, but still with lower extremity edema. Review of Systems Review of Systems: All systems reviewed & are unremarkable except as noted in HPI & below Physical Exam Constitutional: WD/WN, vitals as above Respiratory: Auscultation: + diminished lung sounds (Mildly decreased breath sounds the bases); no crackles, no rales and no wheezes Cardiovascular: RRR, no murmur, no edema Extremities: + edema (2+ bilateral lower extremity edema) Gastrointestinal (Abdomen): normal bowel sounds, soft, nontender, no hepatosplenomegaly Neurologic: PERRL, EOMI, accommodation nl, no face palsy, no dysarthria Results & Data Vital Signs (Past 12 Hours) Vital Signs Temp Pulse Resp BP Pulse Ox 04/28/19 08:09 36.3 C L 89 18 102/62 97 04/28/19 03:50 36.8 C 82 19 94/62 L 96 Laboratory Results Coagulation 04/28/19 Range/Units 04:55 PT 27.2 H (9.0-12.0) Seconds CBC 04/28/19 Range/Units 04:55 WBC 9.43 (4.8-10.8) K/uL RBC 3.72 L (4.7-6.1) M/uL Hgb 12.3 L (14.0-18.0) g/dL Hct 37.3 L (42-52) % Plt Count 199 (130-400) K/uL Comprehensive Metabolic Panel 04/28/19 Range/Units 04:55 Sodium 134 L (136-145) mmol/L Potassium 4.1 (3.5-5.1) mmol/L Chloride 95 L (98-107) mmol/L Carbon Dioxide 32 (21-32) mmol/L BUN 64 H (7-18) mg/dl Creatinine 2.19 H (0.6-1.4) mg/dl Glucose 175 H (70-99) mg/dl Calcium 9.1 (8.5-10.1) mg/dl Intake and Output 04/27/19 04/28/19 04/28/19 22:59 06:59 14:59 Intake Total 628.000 / 1527.000 425 / 1527.000 Output Total 350 / 1802 351 / 1802 Balance 278.000 / -275.000 74 / -275.000 Intake: IV 148.000 / 532.000 185 / 532.000 Lasix 100 mg In D5 90 ml @ 20 148.000 / 532.000 185 / 532.000 MG/HR 20 mls/hr IV .Q5H [facility] Rx# :[id number] Oral 480 / 995 240 / 995 Output: Urine 350 / 1800 350 / 1800 # Bowel Movements 1 / 2 Other: Other Intake Source Ice chips # Unmeasured Voids 1 Weight 131.5 kg 132.6 kg INR today 2.9 Diagnostic Findings 04/25/2019 10:19 AM revealed sinus rhythm with atrial sensed rhythm, ventricular pacing Medications Administered Coagulation 04/28/19 Range/Units 04:55 PT 27.2 H (9.0-12.0) Seconds CBC 04/28/19 Range/Units 04:55 WBC 9.43 (4.8-10.8) K/uL RBC 3.72 L (4.7-6.1) M/uL Hgb 12.3 L (14.0-18.0) g/dL Hct 37.3 L (42-52) % Plt Count 199 (130-400) K/uL Comprehensive Metabolic Panel 04/28/19 Range/Units 04:55 Sodium 134 L (136-145) mmol/L Potassium 4.1 (3.5-5.1) mmol/L Chloride 95 L (98-107) mmol/L Carbon Dioxide 32 (21-32) mmol/L BUN 64 H (7-18) mg/dl Creatinine 2.19 H (0.6-1.4) mg/dl Glucose 175 H (70-99) mg/dl Calcium 9.1 (8.5-10.1) mg/dl Intake and Output 04/27/19 04/28/19 04/28/19 22:59 06:59 14:59 Intake Total 628.000 / 1527.000 425 / 1527.000 Output Total 350 / 1802 351 / 1802 Balance 278.000 / -275.000 74 / -275.000 Intake: IV 148.000 / 532.000 185 / 532.000 Lasix 100 mg In D5 90 ml @ 20 148.000 / 532.000 185 / 532.000 MG/HR 20 mls/hr IV .Q5H [facility] Rx# :[id number] Oral 480 / 995 240 / 995 Output: Urine 350 / 1800 350 / 1800 # Bowel Movements 1 / 2 Other: Other Intake Source Ice chips # Unmeasured Voids 1 Weight 131.5 kg 132.6 kg
[2019-04-28] MEDS ORDERED: metOLazone 2.5 MG TABLET PO ONE (09:54)
--- NOTE | 2019-04-28 09:55 | Nephrology Progress Note ---
Date of Service April 28, 2019 Assessment & Plan (1) CKD (chronic kidney disease) stage 3, GFR 30-59 ml/min: baseline creatinine 1.7-2.0 as outpatient last month; creatinine stable at 2.1 today. bland urine sediment. ckd likely multifactorial from DM, HTN, HF/cardiorenal syndrome and large dose obligate diuretics. chemistries are acceptable. -Add metolazone 5mg today -daily bmp -HF measures as below -continue lasix gtt, K supplementation as currently ordered -on spironolactone as well (2) Acute on chronic systolic CHF (congestive heart failure): cardiology following; pt w/ mild troponin bump, trending down now. -on lasix gtt at 20 mg / hr and adding metolazone today -recommend daily standing wt -Reduce FR to 1.2L /day; cont low Na diet Subjective Seen in follow up for CKD and volume overload. he is on lasix drip at 20. Had SOB last night. He is in the chair this morning but still c/o SOB. Only net negative about 400ml. Review of Systems Review of Systems: All systems reviewed & are unremarkable except as noted in HPI & below Physical Exam Physical Exam: General exam: Appears comfortable, no acute distress HEENT: Pupils are equal and reactive to light Neck: No JVD, neck is supple trachea is midline Respiratory system: Reduced breath sounds bilaterally. Gastrointestinal: Abdomen is soft, non distended, non tender, bowel sounds are present CVS: Regular rate and rhythm. No murmurs, rubs or gallops Musculoskeletal: No joint or muscle tenderness Extremities: Non tender, 2+ edema, peripheral pulses are present Neuro: Oriented, no tremors, no focal neurological deficits Skin: No rashes Results & Data Vital Signs (Past 12 Hours) Vital Signs Temp Pulse Resp BP Pulse Ox 04/28/19 08:09 36.3 C L 89 18 102/62 97 04/28/19 03:50 36.8 C 82 19 94/62 L 96 Laboratory Results Laboratory Results - last 24 hr 04/27/19 04/27/19 04/27/19 11:14 16:21 20:51 WBC RBC Hgb Hct MCV MCH MCHC RDW Std Deviation RDW Coeff of Marli Plt Count MPV PT INR Sodium Potassium Chloride Carbon Dioxide Anion Gap BUN Creatinine Est Cr Clr Drug Dosing Est GFR ( Amer) Est GFR (Non-Af Amer) BUN/Creatinine Ratio Glucose POC Glucose 298 H 177 H 227 H Calcium Magnesium 04/28/19 04/28/19 04/28/19 04:55 04:55 04:55 WBC 9.43 RBC 3.72 L Hgb 12.3 L Hct 37.3 L MCV 100.3 H MCH 33.1 MCHC 33.0 RDW Std Deviation 56.7 H RDW Coeff of Marli 15.5 H Plt Count 199 MPV 11.4 H PT 27.2 H INR 2.9 H Sodium 134 L Potassium 4.1 Chloride 95 L Carbon Dioxide 32 Anion Gap 7.0 BUN 64 H Creatinine 2.19 H Est Cr Clr Drug Dosing 38.6 Est GFR ( Amer) 32.2 Est GFR (Non-Af Amer) 27.8 BUN/Creatinine Ratio 29.3 H Glucose 175 H POC Glucose Calcium 9.1 Magnesium 2.5 H 04/28/19 07:01 WBC RBC Hgb Hct MCV MCH MCHC RDW Std Deviation RDW Coeff of Marli Plt Count MPV PT INR Sodium Potassium Chloride Carbon Dioxide Anion Gap BUN Creatinine Est Cr Clr Drug Dosing Est GFR ( Amer) Est GFR (Non-Af Amer) BUN/Creatinine Ratio Glucose POC Glucose 166 H Calcium Magnesium
[2019-04-28] MEDS ORDERED: ALUMINUM/MAGNESIUM SUSP 30 ML UDC ONE (10:06)
[2019-04-28] MEDS: WARFARIN SOD 10 MG TAB PO SCH (16:03)
--- NOTE | 2019-04-28 18:27 | Hospitalist Progress Note ---
Date of Service April 28, 2019 Assessment & Plan (1) Acute on chronic systolic CHF (congestive heart failure): Still hypervolemic but continues to diurese on the Lasix drip. Cont daily standing weights and salt restricted diet. Approx 1L out today since 0700. Metolazone given today x 1 dose. Cont Lasix drip and fluid restriction. TEDs to lower extremities. Monitoring K/Mg and repleting as needed while on Lasix drip. Renal function is improving. (2) Elevated troponin: Demand ischemia in setting of cardiomyopathy. (3) CAD (coronary artery disease): stable without chest pain, Cont medical management including Plavix, Liptor, ASA 81, Imdur 30, Toprol XL 50. (4) Ischemic cardiomyopathy: Cont with medical management as above and spironolactone. (5) Left ventricular apical thrombus: Therapeutic INR, holding today's dose as INR 3.5. Resume in am. Daily INR (6) Diabetes mellitus type II, uncontrolled: Uncontrolled A1C, however, too much insulin caused hypoglycemia this admission. Tighten coverage and increase glargine slowly. (7) CKD (chronic kidney disease) stage 3, GFR 30-59 ml/min: At baseline. Cont to monitor daily while diuresing on lasix drip. (8) Hypertension: At goal, cont Lasix drip, Toprol XL, aldactone. (9) BPH (benign prostatic hyperplasia): Continue Flomax (10) Depression: Mood stable continue Zoloft (11) GERD (gastroesophageal reflux disease): As Omeprazole and Plavix interact, possibly decreasing the effectiveness of the Plavix, this was switched to Protonix 40mg PO bID. Defer to PCP to de- escalate therapy to 40mg daily for maintenance based on symptom control. (12) DVT prophylaxis: therapeutic on warfarin Full Code Dispo-cont PCU Avis Davis DO [facility] Hospitalist Subjective Patient doing well, reports an improvement in dyspnea on exertion. Still has swelling in the legs and reports orthopnea. He cannot lay flat or even in the bed. Had some heartburn which was resolved with treatment. Otherwise denies an y chest pain or other symptoms at this time. Tolerating p.o. Review of Systems Review of Systems: All systems reviewed & are unremarkable except as noted in HPI & below Physical Exam Physical Exam: CONSTITUTIONAL: obese, vitals as above, generally well- appearing EYES: normal conjunctivae, no scleral icterus ENT: MMM RESPIRATORY: clear to auscultation bilaterally, no crackles, rales or wheezes, normal respiratory effort CARDIOVASCULAR: regular rate and rhythm, S1 and 2 heard without murmurs, gallops or rubs, no JVD, 2+ pitting edema to knees bilaterally GASTROINTESTINAL: normal bowel sounds, soft, nontender, nondistended, some ecchymosis on abdomen around insulin injection sites MUSCULOSKELETAL: strength 5/5 throughout, head is normocephalic and atraumatic, no gross focal deficits. SKIN: warm and dry, vesicular blisters on the anterior tibiae bilaterally which have opened and drained. NEUROLOGIC: CN 2-12 grossly intact, normal cognition and speech, no gross focal deficits. PSYCHIATRIC: alert cooperative and oriented to person, place and time. Results & Data Vital Signs (Past 12 Hours) Vital Signs Temp Pulse Resp BP Pulse Ox 04/28/19 15:15 36.6 C 73 19 97/68 L 97 04/28/19 12:40 37.0 C 80 19 100/66 97 04/28/19 08:09 36.3 C L 89 18 102/62 97 Laboratory Results Short CBC 04/28/19 Range/Units 04:55 WBC 9.43 (4.8-10.8) K/uL Hgb 12.3 L (14.0-18.0) g/dL Hct 37.3 L (42-52) % Plt Count 199 (130-400) K/uL BMP 04/28/19 04:55 Sodium 134 L Potassium 4.1 Chloride 95 L Carbon Dioxide 32 BUN 64 H Creatinine 2.19 H Glucose 175 H Calcium 9.1 Medications Administered Current Inpatient Medications Acetaminophen (Tylenol) 650 mg PO Q4H PRN PRN Reason: Pain or Fever Stop: 05/25/19 15:24 Last Admin: 04/28/19 01:13 Dose: 650 mg Documented by: Aspirin (Ecotrin Ectab) 81 mg PO QAM [facility] Stop: 05/26/19 08:59 Last Admin: 04/28/19 08:36 Dose: 81 mg Documented by: Atorvastatin Calcium (Lipitor) 80 mg PO DAILY [facility] Stop: 05/26/19 08:59 Last Admin: 04/28/19 08:35 Dose: 80 mg Documented by: Calcium [facility]con) [facility]: 05/26/19 08:59 Last Admin: 04/28/19 08:36 Dose: 1 tab Documented by: Clopidogrel Bisulfate (Plavix) 75 mg PO QAM [facility] Stop: 05/26/19 08:59 Last Admin: 04/28/19 08:35 Dose: 75 mg Documented by: Dextrose (Dextrose 50%) 25 - 50 ml IV UD PRN; Protocol PRN Reason: Hypoglycemia Protocol Stop: 05/25/19 15:24 Docusate Sodium (Colace) 200 mg PO DAILY [facility] Stop: 05/26/19 08:59 Last Admin: 04/28/19 08:35 Dose: 200 mg Documented by: Glucagon (Glucagen) 1 mg SQ UD PRN; Protocol PRN Reason: Hypoglycemia Protocol Stop: 05/25/19 15:24 Glucose (Glucose 40%) 15 - 30 gm PO UD PRN; Protocol PRN Reason: Hypoglycemia Protocol Stop: 05/25/19 15:24 Glucose (Dex4 Glucose) 4 - 8 tabs PO UD PRN; Protocol PRN Reason: Hypoglycemia Protocol Stop: 05/25/19 15:24 Furosemide 100 mg/ Dextrose 100 mls @ 20 mls/hr IV .Q5H [facility] Stop: 05/25/19 15:44 Last Admin: 04/28/19 16:01 Dose: 20 mg/hr, 20 mls/hr Documented by: Insulin Aspart (Novolog Flexpen) 0 units SC ACHS [facility] Stop: 05/25/19 16:29 Last Admin: 04/28/19 17:34 Dose: 13 units Documented by: Insulin Glargine (Lantus Solostar Pen) 20 units SC BID [facility]; Protocol Stop: 05/26/19 20:59 Last Admin: 04/28/19 08:36 Dose: 20 units Documented by: Isosorbide Mononitrate (Imdur Extended Rel) 30 mg PO [facility] Stop: 05/26/19 08:59 Last Admin: 04/28/19 08:34 Dose: 30 mg Documented by: Metoprolol Succinate (Toprol Xl) 50 mg PO [facility] Stop: 05/26/19 08:59 Last Admin: 04/28/19 08:34 Dose: 50 mg Documented by: Miscellaneous (Carbohydrates For Hypoglycemia) 15 - 30 gm PO UD PRN PRN Reason: Hypoglycemia Treatment Stop: 05/25/19 15:24 Last Admin: 04/26/19 16:37 Dose: 15 gm Documented by: Nitroglycerin (Nitrostat) 0.4 mg SL UD PRN PRN Reason: Chest Pain Stop: 05/25/19 15:24 Ondansetron HCl (Zofran) 4 mg IV Q6H PRN PRN Reason: Nausea Stop: 05/25/19 15:24 Pantoprazole Sodium (Protonix) 40 mg PO BID [facility]; Protocol Stop: 05/25/19 20:59 Last Admin: 04/28/19 08:34 Dose: 40 mg Documented by: Polyethylene Glycol (Miralax Powder Packet) 17 gm PO DAILY PRN PRN Reason: Constipation Stop: 05/25/19 15:24 Potassium Chloride (Klor-Con M20) 40 meq PO BID [facility] Stop: 05/27/19 10:44 Last Admin: 04/28/19 08:35 Dose: 40 meq Documented by: Sertraline HCl (Zoloft) 50 mg PO DAILY [facility] Stop: 05/26/19 08:59 Last Admin: 04/28/19 08:36 Dose: 50 mg Documented by: Spironolactone (Aldactone) 12.5 mg PO DAILY [facility] Stop: 05/26/19 08:59 Last Admin: 04/28/19 08:36 Dose: 12.5 mg Documented by: Tamsulosin HCl (Flomax) 0.4 mg PO DAILY [facility] Stop: 05/26/19 08:59 Last Admin: 04/28/19 08:36 Dose: 0.4 mg Documented by: Vitamin D (Vitamin D3) 1,000 units PO DAILY [facility] Stop: 05/26/19 08:59 Last Admin: 04/28/19 08:36 Dose: 1,000 units Documented by: Warfarin Sodium (Coumadin) 7.5 mg PO [id number]@1600 [facility] Stop: 05/27/19 15:59 Last Admin: 04/27/19 16:24 Dose: 7.5 mg Documented by: Warfarin Sodium (Coumadin) 10 mg PO [id number]@1600 [facility] Stop: 05/28/19 15:59 Last Admin: 04/28/19 16:03 Dose: 10 mg Documented by: Zolpidem Tartrate (Ambien) 5 mg PO HS PRN PRN Reason: Sleep Stop: 05/26/19 21:13 Last Admin: 04/27/19 20:40 Dose: 5 mg Documented by: (1) Hypertension Hypertension type: essential hypertension Qualified Code(s): I10 - Essential (primary) hypertension
[2019-04-29] MEDS: ZOLPIDEM TARTRATE 5 MG TAB PO PRN ×2 (01:19→20:53)
[2019-04-29] MEDS: FUROSEMIDE 100 MG in DEXTROSE 5% 90 ML IV SCH ×5 (02:44→22:00)
[2019-04-29 07:37] LABS: INR 3.5 (0.9-1.1); Prothrombin Time 32.5 Seconds (9.0-12.0)
[2019-04-29 07:48] LABS: BUN Creatinine Ratio 31.5 (10-20); Calcium 9.4 mg/dl (8.5-10.1); Creatinine Clr Calc Pharmacy 40.1 ml/min; Est GFR (African American) 33.7; Est GFR (Non-African American) 29.1; Potassium 3.5 mmol/L (3.5-5.1)
[2019-04-29] MEDS: INSULIN ASPART 100 UNITS/ML 3 ML PEN SC SCH ×4 (08:19→20:47)
[2019-04-29] MEDS: METOPROLOL SUCC 50MG EXT REL TAB PO SCH (08:20)
[2019-04-29] MEDS: INSULIN GLARGINE SOLOSTAR 100 UNITS/ML 3 ML PEN SC SCH ×2 (08:20→20:45)
[2019-04-29] MEDS: CALCIUM POLYCARBOPHIL 625MG TAB PO SCH (08:21)
[2019-04-29] MEDS: SPIRONOLACTONE 25 MG TAB PO SCH (08:21)
[2019-04-29] MEDS: SERTRALINE HCL 50 MG TABLET PO SCH (08:21)
[2019-04-29] MEDS: POTASSIUM CHLORIDE 20 MEQ TABCR PO SCH ×2 (08:21→20:45)
[2019-04-29] MEDS: TAMSULOSIN HCL 0.4 MG CAP PO SCH (08:21)
[2019-04-29] MEDS: ASPIRIN 81 MG ECTAB PO SCH (08:21)
[2019-04-29] MEDS: ATORVASTATIN 40 MG TAB PO SCH (08:22)
[2019-04-29] MEDS: ISOSORBIDE MONO EXTENDED REL 60 MG TABCR PO SCH (08:22)
[2019-04-29] MEDS: CHOLECALCIFEROL 1,000 UNITS TAB PO SCH (08:22)
[2019-04-29] MEDS: PANTOprazole 40 MG TAB PO SCH ×2 (08:22→20:48)
[2019-04-29] MEDS: CLOPIDOGREL BISULFATE 75 MG TAB PO SCH (08:22)
[2019-04-29] MEDS: DOCUSATE SODIUM 100 MG CAP PO SCH (08:22)
--- NOTE | 2019-04-29 10:43 | Nephrology Progress Note ---
Date of Service April 29, 2019 Assessment & Plan (1) CKD (chronic kidney disease) stage 3, GFR 30-59 ml/min: baseline creatinine 1.7-2.0 as outpatient last month; creatinine stable at 2.1 today. bland urine sediment. ckd likely multifactorial from DM, HTN, HF/cardiorenal syndrome and large dose obligate diuretics. chemistries are acceptable. Patient not diuresing well only net -300 mL yesterday. He has a Stewart catheter now. -And Lasix bolus of 100 mg and continue Lasix drip at 20. -daily bmp -HF measures as below -on spironolactone as well (2) Acute on chronic systolic CHF (congestive heart failure): Continue diuresis with Lasix drip. We will give an additional bolus of Lasix as above. -Continue daily standing wt -Continue FR to 1.2L /day; cont low Na diet Subjective Patient seen in follow-up for CKD and volume overload. He still has shortness of breath especially when sleeping. Still has lower extremity swelling. No vomiting or diarrhea. Renal function is stable. He was under net -300 mL. Review of Systems Review of Systems: All systems reviewed & are unremarkable except as noted in HPI & below Physical Exam Physical Exam: General exam: Appears comfortable, no acute distress HEENT: Pupils are equal and reactive to light Neck: No JVD, neck is supple trachea is midline Respiratory system: Reduced breath sounds bilaterally. Gastrointestinal: Abdomen is soft, non distended, non tender, bowel sounds are present CVS: Regular rate and rhythm. No murmurs, rubs or gallops Musculoskeletal: No joint or muscle tenderness Extremities: Non tender, 1+ edema, peripheral pulses are present Neuro: Oriented, no tremors, no focal neurological deficits Skin: No rashes Results & Data Vital Signs (Past 12 Hours) Vital Signs Temp Pulse Resp BP Pulse Ox 04/29/19 08:20 36.6 C 93 H 20 115/74 98 04/29/19 03:18 36.5 C 86 24 101/62 97 04/28/19 23:16 36.8 C 79 19 102/64 93 Laboratory Results Laboratory Results - last 24 hr 04/28/19 04/28/19 04/28/19 11:31 16:07 20:33 PT INR Sodium Potassium Chloride Carbon Dioxide Anion Gap BUN Creatinine Est Cr Clr Drug Dosing Est GFR ( Amer) Est GFR (Non-Af Amer) BUN/Creatinine Ratio Glucose POC Glucose 299 H 254 H 223 H Calcium 04/29/19 04/29/19 04/29/19 07:10 07:10 07:23 PT 32.5 H INR 3.5 H Sodium 136 Potassium 3.5 Chloride 92 L Carbon Dioxide 37 H Anion Gap 7.0 BUN 66 H Creatinine 2.11 H Est Cr Clr Drug Dosing 40.1 Est GFR ( Amer) 33.7 Est GFR (Non-Af Amer) 29.1 BUN/Creatinine Ratio 31.5 H Glucose 179 H POC Glucose 175 H Calcium 9.4
[2019-04-29] MEDS ORDERED: FUROSEMIDE 100 MG in SYRINGE 0 ML IV ONE (11:00)
--- NOTE | 2019-04-29 12:00 | Cardiology Progress Note ---
Date of Service April 29, 2019 Assessment & Plan (1) CHF (congestive heart failure): Acute on chronic systolic heart failure, ischemic cardiomyopathy. Patient actually appears more swollen today than yesterday. Nephrology input noted and appreciated. Continue furosemide 20 mg/h infusion, Stewart catheter, furosemide re-bolused with 100 mg earlier today. Remain on telemetry. Hold Coumadin for INR 3.5, repeat INR tomorrow. Not on ACEI / ARB due to CKD. Tolerating low-dose of spironolactone, with stable potassium. Continue Flomax . Patient is on aspirin Plavix status post complex multivessel including left main PCI. Patient is on Coumadin due to history of LV apical mural thrombus. Subjective Chief complaint: Follow-up lower extremity edema, shortness of breath Subjective: Patient with minimal urinary output yesterday despite furosemide infusion at 20 mg/h, and metolazone 5 mg p.o. x1. Kidney function electrolytes remained stable. He had multiple attempts to void, and was not completely emptying his bladder, and now has a Stewart catheter with significant urine output after being re-bolused with furosemide 100 mg. Review of Systems Review of Systems: All systems reviewed & are unremarkable except as noted in HPI & below Physical Exam Physical Exam: Temp Pulse Resp BP Pulse Ox 36.7 C 86 18 125/78 95 04/29/19 11:42 04/29/19 11:42 04/29/19 11:42 04/29/19 11:42 04/29/19 11:42 Constitutional: + morbidly obese No acute distress Respiratory: Auscultation: + diminished lung sounds (Decreased breath sounds bilaterally at the base); no crackles, no rales and no rhonchi Cardiovascular: RRR, no murmur, no edema Vessels: + JVD Extremities: + edema (2+ lower extremity edema) Neurologic: PERRL, EOMI, accommodation nl, no face palsy, no dysarthria Results & Data Laboratory Results Coagulation 04/29/19 Range/Units 07:10 PT 32.5 H (9.0-12.0) Seconds Comprehensive Metabolic Panel 04/29/19 Range/Units 07:10 Sodium 136 (136-145) mmol/L Potassium 3.5 (3.5-5.1) mmol/L Chloride 92 L (98-107) mmol/L Carbon Dioxide 37 H (21-32) mmol/L BUN 66 H (7-18) mg/dl Creatinine 2.11 H (0.6-1.4) mg/dl Glucose 179 H (70-99) mg/dl Calcium 9.4 (8.5-10.1) mg/dl Intake and Output 04/28/19 04/29/19 04/29/19 22:59 06:59 14:59 Intake Total 477.333 / 1092.333 100 / 1092.333 100 / 100 Output Total 880 / 1530 400 / 1530 Balance -402.667 / -437.667 -300 / -437.667 99 / 99 Intake: IV 177.333 / 377.333 100 / 377.333 100 / 100 Lasix 100 mg In D5 90 ml @ 20 177.333 / 377.333 100 / 377.333 100 / 100 MG/HR 20 mls/hr IV .Q5H [facility] Rx# :[id number] Oral 300 / 715 Output: Urine 880 / 1530 400 / 1530 # Bowel Movements Other: Weight 132.4 kg INR today 04/29/2019: 3.5 Medications Administered Current Inpatient Medications Acetaminophen (Tylenol) 650 mg PO Q4H PRN PRN Reason: Pain or Fever Stop: 05/25/19 15:24 Last Admin: 04/28/19 01:13 Dose: 650 mg Documented by: Aspirin (Ecotrin Ectab) 81 mg PO [facility] Stop: 05/26/19 08:59 Last Admin: 04/29/19 08:21 Dose: 81 mg Documented by: Atorvastatin Calcium (Lipitor) 80 mg PO DAILY [facility] Stop: 05/26/19 08:59 Last Admin: 04/29/19 08:22 Dose: 80 mg Documented by: Calcium Polycarbophil (Fibercon) 1 tab PO [facility] Stop: 05/26/19 08:59 Last Admin: 04/29/19 08:21 Dose: 1 tab Documented by: [facility]idog[facility] ([facility]ix) [facility] [place] Stop: 05/26/19 08:59 Last Admin: 04/29/19 08:22 Dose: 75 mg Documented by: Dextrose (Dextrose 50%) 25 - 50 ml IV UD PRN; Protocol PRN Reason: Hypoglycemia Protocol Stop: 05/25/19 15:24 Docusate Sodium (Colace) 200 mg PO DAILY [facility] Stop: 05/26/19 08:59 Last Admin: 04/29/19 08:22 Dose: 200 mg Documented by: Glucagon (Glucagen) 1 mg SQ UD PRN; Protocol PRN Reason: Hypoglycemia Protocol Stop: 05/25/19 15:24 Glucose (Glucose 40%) 15 - 30 gm PO UD PRN; Protocol PRN Reason: Hypoglycemia Protocol Stop: 05/25/19 15:24 Glucose (Dex4 Glucose) 4 - 8 tabs PO UD PRN; Protocol PRN Reason: Hypoglycemia Protocol Stop: 05/25/19 15:24 Furosemide 100 mg/ Dextrose 100 mls @ 20 mls/hr IV .Q5H [facility] Stop: 05/25/19 15:44 Last Admin: 04/29/19 08:08 Dose: 20 mg/hr, 20 mls/hr Documented by: Insulin Aspart (Novolog Flexpen) 0 units SC ACHS [facility] Stop: 05/25/19 16:29 Last Admin: 04/29/19 08:19 Dose: 14 units Documented by: Insulin Glargine (Lantus Solostar Pen) 25 units SC BID [facility]; Protocol Stop: 05/29/19 08:59 Last Admin: 04/29/19 08:20 Dose: 25 units Documented by: Isosorbide Mononitrate (Imdur Extended Rel) 30 mg PO [facility] Stop: 05/26/19 08:59 Last Admin: 04/29/19 08:22 Dose: 30 mg Documented by: Metoprolol Succinate (Toprol Xl) 50 mg PO QAM [facility] Stop: 05/26/19 08:59 Last Admin: 04/29/19 08:20 Dose: 50 mg Documented by: Miscellaneous (Carbohydrates For Hypoglycemia) 15 - 30 gm PO UD PRN PRN Reason: Hypoglycemia Treatment Stop: 05/25/19 15:24 Last Admin: 04/26/19 16:37 Dose: 15 gm Documented by: Nitroglycerin (Nitrostat) 0.4 mg SL UD PRN PRN Reason: Chest Pain Stop: 05/25/19 15:24 Ondansetron HCl (Zofran) 4 mg IV Q6H PRN PRN Reason: Nausea Stop: 05/25/19 15:24 Pantoprazole Sodium (Protonix) 40 mg PO BID [facility]; Protocol Stop: 05/25/19 20:59 Last Admin: 04/29/19 08:22 Dose: 40 mg Documented by: Polyethylene Glycol (Miralax Powder Packet) 17 gm PO DAILY PRN PRN Reason: Constipation Stop: 05/25/19 15:24 Potassium Chloride (Klor-Con M20) 40 meq PO BID [facility] Stop: 05/27/19 10:44 Last Admin: 04/29/19 08:21 Dose: 40 meq Documented by: Sertraline HCl (Zoloft) 50 mg PO DAILY [facility] Stop: 05/26/19 08:59 Last Admin: 04/29/19 08:21 Dose: 50 mg Documented by: Spironolactone (Aldactone) 12.5 mg PO DAILY [facility] Stop: 05/26/19 08:59 Last Admin: 04/29/19 08:21 Dose: 12.5 mg Documented by: Tamsulosin HCl (Flomax) 0.4 mg PO DAILY [facility] Stop: 05/26/19 08:59 Last Admin: 04/29/19 08:21 Dose: 0.4 mg Documented by: Vitamin D (Vitamin D3) 1,000 units PO DAILY [facility] Stop: 05/26/19 08:59 Last Admin: 04/29/19 08:22 Dose: 1,000 units Documented by: Warfarin Sodium (Coumadin) 7.5 mg PO [id number]@1600 [facility] Stop: 05/27/19 15:59 Last Admin: 04/27/19 16:24 Dose: 7.5 mg Documented by: Warfarin Sodium (Coumadin) 10 mg PO [id number]@1600 [facility] Stop: 05/28/19 15:59 Last Admin: 04/28/19 16:03 Dose: 10 mg Documented by: Zolpidem Tartrate (Ambien) 5 mg PO HS PRN PRN Reason: Sleep Stop: 05/26/19 21:13 Last Admin: 04/29/19 01:19 Dose: 5 mg Documented by:
[2019-04-29] MEDS: ACETAMINOPHEN 325 MG TAB PO PRN ×2 (12:31→20:52)
--- NOTE | 2019-04-29 15:15 | Hospitalist Progress Note ---
Date of Service April 29, 2019 Assessment & Plan (1) Acute on chronic systolic CHF (congestive heart failure): Continue Lasix drip and fluid restriction. Metolazone given by cardiology. Lasix bolus given by nephrology. Diuresis is improving. Monitoring K/Mg and repleting as needed while on Lasix drip. Renal function is improving. (2) Elevated troponin: Demand ischemia in setting of cardiomyopathy. (3) CAD (coronary artery disease): stable without chest pain, Cont medical management including Plavix, Liptor, ASA 81, Imdur 30, Toprol XL 50. (4) Ischemic cardiomyopathy: Cont with medical management as above and spironolactone. (5) Left ventricular apical thrombus: Therapeutic INR, holding today's dose as INR 3.5. Resume in am. Daily INR (6) Diabetes mellitus type II, uncontrolled: Uncontrolled A1c, Continue glargine and insulin sliding scale with carb coverage. (7) CKD (chronic kidney disease) stage 3, GFR 30-59 ml/min: At baseline. Cont to monitor daily while diuresing on lasix drip. (8) Hypertension: At goal, cont Lasix drip, Toprol XL, aldactone. (9) BPH (benign prostatic hyperplasia): Continue Flomax (10) Depression: Mood stable continue Zoloft (11) GERD (gastroesophageal reflux disease): As Omeprazole and Plavix interact, possibly decreasing the effectiveness of the Plavix, this was switched to Protonix 40mg PO bID. Defer to PCP to de- escalate therapy to 40mg daily for maintenance based on symptom control. (12) DVT prophylaxis: therapeutic on warfarin Full Code Dispo-cont PCU Avis Davis DO [facility] Hospitalist Subjective Patient feeling well. Diuresing well. Tolerating p.o. Reports ambulation. Still requiring nasal cannula 16/05. Denies any chest pain. Denies any heartburn today. Review of Systems Review of Systems: All systems reviewed & are unremarkable except as noted in HPI & below Physical Exam Physical Exam: CONSTITUTIONAL: obese, vitals as above, generally well- appearing EYES: normal conjunctivae, no scleral icterus ENT: MMM RESPIRATORY: clear to auscultation bilaterally, no crackles, rales or wheezes, normal respiratory effort CARDIOVASCULAR: regular rate and rhythm, S1 and 2 heard without murmurs, gallops or rubs, no JVD, 2+ pitting edema to knees bilaterally GASTROINTESTINAL: normal bowel sounds, soft, nontender, nondistended, some ecchymosis on abdomen around insulin injection sites MUSCULOSKELETAL: strength 5/5 throughout, head is normocephalic and atraumatic, no gross focal deficits. SKIN: warm and dry, vesicular blisters on the anterior tibiae bilaterally which have opened and drained. NEUROLOGIC: CN 2-12 grossly intact, normal cognition and speech, no gross focal deficits. PSYCHIATRIC: alert cooperative and oriented to person, place and time. Results & Data Vital Signs (Past 12 Hours) Vital Signs Temp Pulse Resp BP Pulse Ox 04/29/19 15:11 36.3 C L 69 20 98/62 L 98 04/29/19 11:42 36.7 C 86 18 125/78 95 04/29/19 10:53 95 04/29/19 08:20 36.6 C 93 H 20 115/74 98 04/29/19 03:18 36.5 C 86 24 101/62 97 Laboratory Results [facility] 04/29/19 07:10 Sodium 136 Potassium 3.5 Chloride 92 L Carbon Dioxide 37 H BUN 66 H Creatinine 2.11 H Glucose 179 H Calcium 9.4 Medications Administered Current Inpatient Medications Acetaminophen (Tylenol) 650 mg PO Q4H PRN PRN Reason: Pain or Fever Stop: 05/25/19 15:24 Last Admin: 04/29/19 12:31 Dose: 650 mg Documented by: Aspirin (Ecotrin Ectab) [facility] [place] Stop: 05/26/19 08:59 Last Admin: 04/29/19 08:21 Dose: 81 mg Documented by: Atorvastatin Calcium (Lipitor) 80 mg PO DAILY [facility] Stop: 05/26/19 08:59 Last Admin: 04/29/19 08:22 Dose: 80 mg Documented by: Calcium Polycarbophil (Fibercon) [facility] [place] Stop: 05/26/19 08:59 Last Admin: 04/29/19 08:21 Dose: 1 tab Documented by: Clopidogrel Bisulfate (Plavix) 75 mg PO QAM [facility] Stop: 05/26/19 08:59 Last Admin: 04/29/19 08:22 Dose: 75 mg Documented by: Dextrose (Dextrose 50%) 25 - 50 ml IV UD PRN; Protocol PRN Reason: Hypoglycemia Protocol Stop: 05/25/19 15:24 Docusate Sodium (Colace) 200 mg PO DAILY [facility] Stop: 05/26/19 08:59 Last Admin: 04/29/19 08:22 Dose: 200 mg Documented by: Glucagon (Glucagen) 1 mg SQ UD PRN; Protocol PRN Reason: Hypoglycemia Protocol Stop: 05/25/19 15:24 Glucose (Glucose 40%) 15 - 30 gm PO UD PRN; Protocol PRN Reason: Hypoglycemia Protocol Stop: 05/25/19 15:24 Glucose (Dex4 Glucose) 4 - 8 tabs PO UD PRN; Protocol PRN Reason: Hypoglycemia Protocol Stop: 05/25/19 15:24 Furosemide 100 mg/ Dextrose 100 mls @ 20 mls/hr IV .Q5H [facility] Stop: 05/25/19 15:44 Last Admin: 04/29/19 12:31 Dose: 20 mg/hr, 20 mls/hr Documented by: Insulin Aspart (Novolog Flexpen) 0 units SC ACHS [facility] Stop: 05/25/19 16:29 Last Admin: 04/29/19 12:32 Dose: 20 units Documented by: Insulin Glargine (Lantus Solostar Pen) 25 units SC BID [facility]; Protocol Stop: 05/29/19 08:59 Last Admin: 04/29/19 08:20 Dose: 25 units Documented by: Isosorbide Mononitrate (Imdur Extended Rel) 30 mg PO [facility] Stop: 05/26/19 08:59 Last Admin: 04/29/19 08:22 Dose: 30 mg Documented by: Metoprolol Succinate (Toprol Xl) 50 mg PO [facility] Stop: 05/26/19 08:59 Last Admin: 04/29/19 08:20 Dose: 50 mg Documented by: Miscellaneous (Carbohydrates For Hypoglycemia) 15 - 30 gm PO UD PRN PRN Reason: Hypoglycemia Treatment Stop: 05/25/19 15:24 Last Admin: 04/26/19 16:37 Dose: 15 gm Documented by: Nitroglycerin (Nitrostat) 0.4 mg SL UD PRN PRN Reason: Chest Pain Stop: 05/25/19 15:24 Ondansetron HCl (Zofran) 4 mg IV Q6H PRN PRN Reason: Nausea Stop: 05/25/19 15:24 Pantoprazole Sodium (Protonix) 40 mg PO BID [facility]; Protocol Stop: 05/25/19 20:59 Last Admin: 04/29/19 08:22 Dose: 40 mg Documented by: Polyethylene Glycol (Miralax Powder Packet) 17 gm PO DAILY PRN PRN Reason: Constipation Stop: 05/25/19 15:24 Potassium Chloride (Klor-Con M20) 40 meq PO BID [facility] Stop: 05/27/19 10:44 Last Admin: 04/29/19 08:21 Dose: 40 meq Documented by: Sertraline HCl (Zoloft) 50 mg PO DAILY [facility] Stop: 05/26/19 08:59 Last Admin: 04/29/19 08:21 Dose: 50 mg Documented by: Spironolactone (Aldactone) 12.5 mg PO DAILY [facility] Stop: 05/26/19 08:59 Last Admin: 04/29/19 08:21 Dose: 12.5 mg Documented by: Tamsulosin HCl (Flomax) 0.4 mg PO DAILY [facility] Stop: 05/26/19 08:59 Last Admin: 04/29/19 08:21 Dose: 0.4 mg Documented by: Vitamin D (Vitamin D3) 1,000 units PO DAILY [facility] Stop: 05/26/19 08:59 Last Admin: 04/29/19 08:22 Dose: 1,000 units Documented by: Warfarin Sodium (Coumadin) 7.5 mg PO [id number]@1600 [facility] Stop: 05/27/19 15:59 Last Admin: 04/27/19 16:24 Dose: 7.5 mg Documented by: Warfarin Sodium (Coumadin) 10 mg PO [id number]@1600 [facility] Stop: 05/28/19 15:59 Last Admin: 04/28/19 16:03 Dose: 10 mg Documented by: Zolpidem Tartrate (Ambien) 5 mg PO HS PRN PRN Reason: Sleep Stop: 05/26/19 21:13 Last Admin: 04/29/19 01:19 Dose: 5 mg Documented by: (1) Hypertension Hypertension type: essential hypertension Qualified Code(s): I10 - Essential (primary) hypertension
[2019-04-30] MEDS: FUROSEMIDE 100 MG in DEXTROSE 5% 90 ML IV SCH ×5 (02:49→20:15)
[2019-04-30 06:24] LABS: INR 3.4 (0.9-1.1); Prothrombin Time 32.2 Seconds (9.0-12.0)
[2019-04-30 06:40] LABS: BUN Creatinine Ratio 34.7 (10-20); Calcium 9.4 mg/dl (8.5-10.1); Creatinine Clr Calc Pharmacy 38.5 ml/min; Est GFR (African American) 32.4; Magnesium 2.6 mg/dl (1.8-2.4); Potassium 3.5 mmol/L (3.5-5.1)
[2019-04-30] MEDS: INSULIN ASPART 100 UNITS/ML 3 ML PEN SC SCH ×4 (08:55→20:41)
[2019-04-30] MEDS: INSULIN GLARGINE SOLOSTAR 100 UNITS/ML 3 ML PEN SC SCH (08:56)
[2019-04-30] MEDS: PANTOprazole 40 MG TAB PO SCH ×2 (08:57→20:42)
[2019-04-30] MEDS: ASPIRIN 81 MG ECTAB PO SCH (08:58)
[2019-04-30] MEDS: SPIRONOLACTONE 25 MG TAB PO SCH (08:58)
[2019-04-30] MEDS: CALCIUM POLYCARBOPHIL 625MG TAB PO SCH (08:58)
[2019-04-30] MEDS: DOCUSATE SODIUM 100 MG CAP PO SCH (08:59)
[2019-04-30] MEDS: ISOSORBIDE MONO EXTENDED REL 60 MG TABCR PO SCH (08:59)
[2019-04-30] MEDS: POTASSIUM CHLORIDE 20 MEQ TABCR PO SCH ×2 (08:59→20:37)
[2019-04-30] MEDS: SERTRALINE HCL 50 MG TABLET PO SCH (08:59)
[2019-04-30] MEDS: METOPROLOL SUCC 50MG EXT REL TAB PO SCH (08:59)
[2019-04-30] MEDS: CLOPIDOGREL BISULFATE 75 MG TAB PO SCH (08:59)
[2019-04-30] MEDS: TAMSULOSIN HCL 0.4 MG CAP PO SCH (08:59)
[2019-04-30] MEDS: ATORVASTATIN 40 MG TAB PO SCH (09:00)
[2019-04-30] MEDS: CHOLECALCIFEROL 1,000 UNITS TAB PO SCH (09:00)
[2019-04-30] MEDS ORDERED: POTASSIUM CHLORIDE 20 MEQ TABCR PO SCH (09:00)
--- NOTE | 2019-04-30 11:03 | Cardiology Progress Note ---
Date of Service April 30, 2019 Assessment & Plan (1) CHF (congestive heart failure): Acute on chronic heart failure with reduced ejection fraction due to coronary heart disease, ischemic cardiomyopathy, with moderate to severe left ventricular systolic dysfunction. Patient underwent complex left main, circumflex, ramus PCI with Impella device support in August,, [facility] [place] [place], as he was felt to be a poor candidate for surgery due to his low ejection fraction and baseline creatinine in the range of 2 mg/dL. No loss of 2.1 L yesterday. Furosemide infusion at 20 mg/h. Patient had been discharged last month on a dose of torsemide 60 mg a.m., 40 mg p.m., spironolactone, and metolazone 2.5 mg weekly on Mondays. Would consider discharging him on higher dose, perhaps torsemide 100 mg every morning, 40 mg every afternoon, with metolazone 1-2 times per week. Patient is followed by [email or web address] and we have been able to follow labs as outpt. and administer IV furosemide as outpt. Pt's primary professional fighter is Dr Diane, Followed also recently by Mr Tiwari in HF clinic. (2) Left ventricular apical thrombus: Continue coumadin. (3) Biventricular cardiac pacemaker in situ: Has biventricular pacemaker for heart rate support without AICD per patient's preference. Subjective Chief complaint: Follow-up shortness of breath lower extremity edema Subjective: Patient seen, sitting in chair, comfortable with Stewart catheter, still with significant swelling. Telemetry reveals ongoing sinus rhythm with ventricular paced QRS complexes. Review of Systems Review of Systems: All systems reviewed & are unremarkable except as noted in HPI & below Physical Exam Physical Exam: Temp Pulse Resp BP Pulse Ox 36.6 C 83 18 121/75 95 04/30/19 07:45 04/30/19 07:45 04/30/19 07:45 04/30/19 07:45 04/30/19 07:45 Constitutional: WD/WN, vitals as above Respiratory: Auscultation: + diminished lung sounds (Mildly decreased breath sounds the bases); no crackles, no rales, no rhonchi and no wheezes Cardiovascular: RRR, no murmur, no edema Vessels: + JVD Extremities: + edema (2+ bilateral lower extremity edema) Gastrointestinal (Abdomen): normal bowel sounds, soft, nontender, no hepatosplenomegaly Neurologic: PERRL, EOMI, accommodation nl, no face palsy, no dysarthria Results & Data Vital Signs (Past 12 Hours) Vital Signs Temp Pulse Pulse Resp BP Pulse Ox 04/30/19 07:45 36.6 C 83 18 121/75 95 04/30/19 04:18 36.7 C 101 H 16 103/65 96 04/30/19 00:39 36.7 C 72 16 103/71 98 04/29/19 23:00 74 Laboratory Results Coagulation 04/30/19 Range/Units 05:33 PT 32.2 H (9.0-12.0) Seconds Comprehensive Metabolic Panel 04/30/19 Range/Units 05:33 Sodium 135 L (136-145) mmol/L Potassium 3.5 (3.5-5.1) mmol/L Chloride 92 L (98-107) mmol/L Carbon Dioxide 37 H (21-32) mmol/L BUN 76 H (7-18) mg/dl Creatinine 2.18 H (0.6-1.4) mg/dl Glucose 147 H (70-99) mg/dl Calcium 9.4 (8.5-10.1) mg/dl Intake and Output 04/29/19 04/30/19 04/30/19 22:59 06:59 14:59 Intake Total 500 / 1237.667 350 / 1237.667 100 / 100 Output Total 1001 / 3405 1050 / 3405 Balance -501 / -2167.333 -700 / -2167.333 100 / 100 Intake: IV 200 / 487.667 100 / 487.667 100 / 100 Lasix 100 mg In D5 90 ml @ 20 200 / 487.667 100 / 487.667 100 / 100 MG/HR 20 mls/hr IV .Q5H [facility] Rx# :[id number] Oral 300 / 750 250 / 750 Output: Urine Amount (Catheter) 999 Stewart/Indwelling 999 # Bowel Movements 1 / Other: Weight 130.8 kg INR today 04/30/2019 3.4 Medications Administered Current Inpatient Medications Acetaminophen (Tylenol) 650 mg PO Q4H PRN PRN Reason: Pain or Fever Stop: 05/25/19 15:24 Last Admin: 04/29/19 20:52 Dose: 650 mg Documented by: Aspirin (Ecotrin Ectab) [facility] [place] Stop: 05/26/19 08:59 Last Admin: 04/30/19 08:58 Dose: 81 mg Documented by: Atorvastatin Calcium (Lipitor) 80 mg PO DAILY [facility] Stop: 05/26/19 08:59 Last Admin: 04/30/19 09:00 Dose: 80 mg Documented by: Calcium Polycarbophil (Fibercon) 1 tab PO [facility] Stop: 05/26/19 08:59 Last Admin: 04/30/19 08:58 Dose: 1 tab Documented by: Clopidogrel Bisulfate (Plavix) 75 mg PO [facility] Stop: 05/26/19 08:59 Last Admin: 04/30/19 08:59 Dose: 75 mg Documented by: Dextrose (Dextrose 50%) 25 - 50 ml IV UD PRN; Protocol PRN Reason: Hypoglycemia Protocol Stop: 05/25/19 15:24 Docusate Sodium (Colace) 200 mg PO DAILY [facility] Stop: 05/26/19 08:59 Last Admin: 04/30/19 08:59 Dose: 200 mg Documented by: Glucagon (Glucagen) 1 mg SQ UD PRN; Protocol PRN Reason: Hypoglycemia Protocol Stop: 05/25/19 15:24 Glucose (Glucose 40%) 15 - 30 gm PO UD PRN; Protocol PRN Reason: Hypoglycemia Protocol Stop: 05/25/19 15:24 Glucose (Dex4 Glucose) 4 - 8 tabs PO UD PRN; Protocol PRN Reason: Hypoglycemia Protocol Stop: 05/25/19 15:24 Furosemide 100 mg/ Dextrose 100 mls @ 20 mls/hr IV .Q5H [facility] Stop: 05/25/19 15:44 Last Admin: 04/30/19 08:55 Dose: 20 mg/hr, 20 mls/hr Documented by: Insulin Aspart (Novolog Flexpen) 0 units SC ACHS [facility] Stop: 05/25/19 16:29 Last Admin: 04/30/19 08:55 Dose: 14 units Documented by: Insulin Glargine (Lantus Solostar Pen) 25 units SC BID [facility]; Protocol Stop: 05/29/19 08:59 Last Admin: 04/30/19 08:56 Dose: 25 units Documented by: Isosorbide Mononitrate (Imdur Extended Rel) 30 mg PO QAM [facility] Stop: 05/26/19 08:59 Last Admin: 04/30/19 08:59 Dose: 30 mg Documented by: Metoprolol Succinate (Toprol Xl) 50 mg PO QAM [facility] Stop: 05/26/19 08:59 Last Admin: 04/30/19 08:59 Dose: 50 mg Documented by: Miscellaneous (Carbohydrates For Hypoglycemia) 15 - 30 gm PO UD PRN PRN Reason: Hypoglycemia Treatment Stop: 05/25/19 15:24 Last Admin: 04/26/19 16:37 Dose: 15 gm Documented by: Nitroglycerin (Nitrostat) 0.4 mg SL UD PRN PRN Reason: Chest Pain Stop: 05/25/19 15:24 Ondansetron HCl (Zofran) 4 mg IV Q6H PRN PRN Reason: Nausea Stop: 05/25/19 15:24 Pantoprazole Sodium (Protonix) 40 mg PO BID [facility]; Protocol Stop: 05/25/19 20:59 Last Admin: 04/30/19 08:57 Dose: 40 mg Documented by: Polyethylene Glycol (Miralax Powder Packet) 17 gm PO DAILY PRN PRN Reason: Constipation Stop: 05/25/19 15:24 Potassium Chloride (Klor-Con M20) 40 meq PO BID [facility] Stop: 05/27/19 10:44 Last Admin: 04/30/19 08:59 Dose: 40 meq Documented by: Sertraline HCl (Zoloft) 50 mg PO DAILY [facility] Stop: 05/26/19 08:59 Last Admin: 04/30/19 08:59 Dose: 50 mg Documented by: Spironolactone (Aldactone) 12.5 mg PO DAILY [facility] Stop: 05/26/19 08:59 Last Admin: 04/30/19 08:58 Dose: 12.5 mg Documented by: Tamsulosin HCl (Flomax) 0.4 mg PO DAILY [facility] Stop: 05/26/19 08:59 Last Admin: 04/30/19 08:59 Dose: 0.4 mg Documented by: Vitamin D (Vitamin D3) 1,000 units PO DAILY [facility] Stop: 05/26/19 08:59 Last Admin: 04/30/19 09:00 Dose: 1,000 units Documented by: Warfarin Sodium (Coumadin) 7.5 mg PO [id number]@1600 [facility] Stop: 05/27/19 15:59 Last Admin: 04/27/19 16:24 Dose: 7.5 mg Documented by: Warfarin Sodium (Coumadin) 10 mg PO [id number]@1600 [facility] Stop: 05/28/19 15:59 Last Admin: 04/28/19 16:03 Dose: 10 mg Documented by: Zolpidem Tartrate (Ambien) 5 mg PO HS PRN PRN Reason: Sleep Stop: 05/26/19 21:13 Last Admin: 04/29/19 20:53 Dose: 5 mg Documented by:
[2019-04-30] MEDS: ACETAMINOPHEN 325 MG TAB PO PRN ×2 (12:03→20:36)
--- NOTE | 2019-04-30 15:18 | Hospitalist Progress Note ---
Date of Service April 30, 2019 Assessment & Plan (1) Acute on chronic systolic CHF (congestive heart failure): Continue Lasix drip. Recent metolazone and Lasix bolus is working for him. Continue diuresing. (2) Elevated troponin: Demand ischemia in setting of cardiomyopathy. (3) CAD (coronary artery disease): stable without chest pain, Cont medical management including Plavix, Liptor, ASA 81, Imdur 30, Toprol XL 50. (4) Ischemic cardiomyopathy: Cont with medical management as above and spironolactone. (5) Left ventricular apical thrombus: Therapeutic INR, continue Coumadin (6) Diabetes mellitus type II, uncontrolled: Uncontrolled A1C, however, too much insulin caused hypoglycemia this admission. #3 carb coverage and sliding scale, fasting blood sugars around goal so we will keep glargine at 25 units nightly. Increase a.m. glargine dose to 35 units. Noting that home dose of glargine is 60 units twice daily. (7) CKD (chronic kidney disease) stage 3, GFR 30-59 ml/min: At baseline. Cont to monitor daily while diuresing on lasix drip. (8) Hypertension: At goal, cont Lasix drip, Toprol XL, aldactone. (9) BPH (benign prostatic hyperplasia): Continue Flomax (10) Depression: Mood stable continue Zoloft (11) GERD (gastroesophageal reflux disease): As Omeprazole and Plavix interact, possibly decreasing the effectiveness of the Plavix, this was switched to Protonix 40mg PO BID. Defer to PCP to de- escalate therapy to 40mg daily for maintenance based on symptom control. (12) DVT prophylaxis: therapeutic on warfarin Full Code Dispo-cont PCU [facility] Subjective Patient reports feeling improved today. Swelling has improved in his legs. He is able to lay with less orthopnea in his recliner. Still requiring oxygen. Ambulating around the room. Denies any chest pain or other issues at this time. Review of Systems Review of Systems: All systems reviewed & are unremarkable except as noted in HPI & below Physical Exam Physical Exam: CONSTITUTIONAL: obese, vitals as above, generally well- appearing EYES: normal conjunctivae, no scleral icterus ENT: MMM RESPIRATORY: clear to auscultation bilaterally, no crackles, rales or wheezes, normal respiratory effort CARDIOVASCULAR: regular rate and rhythm, S1 and 2 heard without murmurs, gallops or rubs, no JVD, edema resolved in lower extremities GASTROINTESTINAL: normal bowel sounds, soft, nontender, nondistended, some ecchymosis on abdomen around insulin injection sites MUSCULOSKELETAL: strength 5/5 throughout, head is normocephalic and atraumatic, no gross focal deficits. SKIN: warm and dry, vesicular blisters on the anterior tibiae bilaterally which have opened and drained. NEUROLOGIC: CN 2-12 grossly intact, normal cognition and speech, no gross focal deficits. PSYCHIATRIC: alert cooperative and oriented to person, place and time. Results & Data Vital Signs (Past 12 Hours) Vital Signs Temp Pulse Pulse Resp BP Pulse Ox 04/30/19 12:18 36.8 C 60 18 90/52 L 98 04/30/19 08:00 68 04/30/19 07:45 36.6 C 83 18 121/75 95 04/30/19 04:18 36.7 C 101 H 16 103/65 96 Laboratory Results [facility] 04/30/19 05:33 Sodium 135 L Potassium 3.5 Chloride 92 L Carbon Dioxide 37 H BUN 76 H Creatinine 2.18 H Glucose 147 H Calcium 9.4 Medications Administered Current Inpatient Medications Acetaminophen (Tylenol) 650 mg PO Q4H PRN PRN Reason: Pain or Fever Stop: 05/25/19 15:24 Last Admin: 04/30/19 12:03 Dose: 650 mg Documented by: Aspirin ([facility]rin Ectab) [facility] Stop: 05/26/19 08:59 Last Admin: 04/30/19 08:58 Dose: 81 mg Documented by: Atorvastatin Calcium (Lipitor) 80 mg PO DAILY [facility] Stop: 05/26/19 08:59 Last Admin: 04/30/19 09:00 Dose: 80 mg Documented by: Calcium Polycarbophil (Fibercon) 1 [facility] Stop: 05/26/19 08:59 Last Admin: 04/30/19 08:58 Dose: 1 tab Documented by: Clopidogrel Bisulfate (Plavix) 75 mg PO QAM [facility] Stop: 05/26/19 08:59 Last Admin: 04/30/19 08:59 Dose: 75 mg Documented by: Dextrose (Dextrose 50%) 25 - 50 ml IV UD PRN; Protocol PRN Reason: Hypoglycemia Protocol Stop: 05/25/19 15:24 Docusate Sodium (Colace) 200 mg PO DAILY [facility] Stop: 05/26/19 08:59 Last Admin: 04/30/19 08:59 Dose: 200 mg Documented by: Glucagon (Glucagen) 1 mg SQ UD PRN; Protocol PRN Reason: Hypoglycemia Protocol Stop: 05/25/19 15:24 Glucose (Glucose 40%) 15 - 30 gm PO UD PRN; Protocol PRN Reason: Hypoglycemia Protocol Stop: 05/25/19 15:24 Glucose (Dex4 Glucose) 4 - 8 tabs PO UD PRN; Protocol PRN Reason: Hypoglycemia Protocol Stop: 05/25/19 15:24 Furosemide 100 mg/ Dextrose 100 mls @ 20 mls/hr IV .Q5H [facility] Stop: 05/25/19 15:44 Last Admin: 04/30/19 15:14 Dose: 20 mg/hr, 20 mls/hr Documented by: Insulin Aspart (Novolog Flexpen) 0 units SC ACHS [facility] Stop: 05/25/19 16:29 Last Admin: 04/30/19 13:04 Dose: 24 units Documented by: Insulin Glargine (Lantus Solostar Pen) 25 units SC BID [facility]; Protocol Stop: 05/29/19 08:59 Last Admin: 04/30/19 08:56 Dose: 25 units Documented by: Isosorbide Mononitrate (Imdur Extended Rel) 30 mg PO [facility] Stop: 05/26/19 08:59 Last Admin: 04/30/19 08:59 Dose: 30 mg Documented by: Metoprolol Succinate (Toprol Xl) 50 mg PO [facility] Stop: 05/26/19 08:59 Last Admin: 04/30/19 08:59 Dose: 50 mg Documented by: Miscellaneous (Carbohydrates For Hypoglycemia) 15 - 30 gm PO UD PRN PRN Reason: Hypoglycemia Treatment Stop: 05/25/19 15:24 Last Admin: 04/26/19 16:37 Dose: 15 gm Documented by: Nitroglycerin (Nitrostat) 0.4 mg SL UD PRN PRN Reason: Chest Pain Stop: 05/25/19 15:24 Ondansetron HCl (Zofran) 4 mg IV Q6H PRN PRN Reason: Nausea Stop: 05/25/19 15:24 Pantoprazole Sodium (Protonix) 40 mg PO BID [facility]; Protocol Stop: 05/25/19 20:59 Last Admin: 04/30/19 08:57 Dose: 40 mg Documented by: Polyethylene Glycol (Miralax Powder Packet) 17 gm PO DAILY PRN PRN Reason: Constipation Stop: 05/25/19 15:24 Potassium Chloride (Klor-Con M20) 40 meq PO BID [facility] Stop: 05/27/19 10:44 Last Admin: 04/30/19 08:59 Dose: 40 meq Documented by: Sertraline HCl (Zoloft) 50 mg PO DAILY [facility] Stop: 05/26/19 08:59 Last Admin: 04/30/19 08:59 Dose: 50 mg Documented by: Spironolactone (Aldactone) 12.5 mg PO DAILY [facility] Stop: 05/26/19 08:59 Last Admin: 04/30/19 08:58 Dose: 12.5 mg Documented by: Tamsulosin HCl (Flomax) 0.4 mg PO DAILY [facility] Stop: 05/26/19 08:59 Last Admin: 04/30/19 08:59 Dose: 0.4 mg Documented by: Vitamin D (Vitamin D3) 1,000 units PO DAILY [facility] Stop: 05/26/19 08:59 Last Admin: 04/30/19 09:00 Dose: 1,000 units Documented by: Warfarin Sodium (Coumadin) 7.5 mg PO MoFr@1600 [facility] Stop: 05/27/19 15:59 Last Admin: 04/27/19 16:24 Dose: 7.5 mg Documented by: Warfarin Sodium (Coumadin) 10 mg PO SuTuWeThSa@1600 [facility] Stop: 05/28/19 15:59 Last Admin: 04/28/19 16:03 Dose: 10 mg Documented by: Zolpidem Tartrate (Ambien) 5 mg PO HS PRN PRN Reason: Sleep Stop: 05/26/19 21:13 Last Admin: 04/29/19 20:53 Dose: 5 mg Documented by: (1) Hypertension Hypertension type: essential hypertension Qualified Code(s): I10 - Essential (primary) hypertension
[2019-04-30] MEDS: WARFARIN SOD 7.5 MG TAB PO SCH (16:32)
--- NOTE | 2019-04-30 18:05 | Nephrology Progress Note ---
Date of Service April 30, 2019 Assessment & Plan (1) CKD (chronic kidney disease) stage 3, GFR 30-59 ml/min: baseline creatinine 1.7-2.0 as outpatient last month; creatinine stable at 2.1 today. bland urine sediment. ckd likely multifactorial from DM, HTN, HF/cardiorenal syndrome and large dose obligate diuretics. chemistries are acceptable. Patient diuresing well after Lasix bolus and was net -2000 mL yesterday. He has a Stewart catheter now. -continue Lasix drip at 20. -daily bmp -HF measures as below -on spironolactone as well (2) Acute on chronic systolic CHF (congestive heart failure): Continue diuresis with Lasix drip. -Continue daily standing wt -Continue FR to 1.2L /day; cont low Na diet Subjective Patient seen in follow-up for CKD and volume overload. He diuresed well after the Lasix bolus. He continues Lasix drip as well. He was net -2 L yesterday. He reports improvement in breathing. Still has lower extremity swelling. He was seated up in the chair at the time of my visit this morning. Review of Systems Review of Systems: All systems reviewed & are unremarkable except as noted in HPI & below Physical Exam Physical Exam: General exam: Appears comfortable, no acute distress HEENT: Pupils are equal and reactive to light Neck: No JVD, neck is supple trachea is midline Respiratory system: Reduced breath sounds bilaterally. Gastrointestinal: Abdomen is soft, non distended, non tender, bowel sounds are present CVS: Regular rate and rhythm. No murmurs, rubs or gallops Musculoskeletal: No joint or muscle tenderness Extremities: Non tender, 2+ edema, peripheral pulses are present Neuro: Oriented, no tremors, no focal neurological deficits Skin: No rashes Results & Data Vital Signs (Past 12 Hours) Vital Signs Temp Pulse Pulse Resp BP Pulse Ox 04/30/19 16:12 65 04/30/19 15:28 36.8 C 60 19 101/58 L 98 04/30/19 12:18 36.8 C 60 18 90/52 L 98 04/30/19 08:00 68 04/30/19 07:45 36.6 C 83 18 121/75 95 Laboratory Results Laboratory Results - last 24 hr 04/29/19 04/30/19 04/30/19 20:43 05:33 05:33 PT 32.2 H INR 3.4 H Sodium 135 L Potassium 3.5 Chloride 92 L Carbon Dioxide 37 H Anion Gap 6.0 BUN 76 H Creatinine 2.18 H Est Cr Clr Drug Dosing 38.5 Est GFR ( Amer) 32.4 Est GFR (Non-Af Amer) 28.0 BUN/Creatinine Ratio 34.7 H Glucose 147 H POC Glucose 253 H Calcium 9.4 Magnesium 2.6 H 04/30/19 04/30/19 04/30/19 07:24 11:31 15:43 PT INR Sodium Potassium Chloride Carbon Dioxide Anion Gap BUN Creatinine Est Cr Clr Drug Dosing Est GFR ( Amer) Est GFR (Non-Af Amer) BUN/Creatinine Ratio Glucose POC Glucose 144 H 239 H 203 H Calcium Magnesium
[2019-04-30] MEDS: ZOLPIDEM TARTRATE 5 MG TAB PO PRN (20:36)
[2019-04-30] MEDS ORDERED: INSULIN GLARGINE SOLOSTAR 100 UNITS/ML 3 ML PEN SC SCH (21:00)
[2019-05-01] MEDS: FUROSEMIDE 100 MG in DEXTROSE 5% 90 ML IV SCH ×5 (01:05→22:04)
[2019-05-01] MEDS ORDERED: Nursing to Pharmacy Communication ONE (04:19)
[2019-05-01] MEDS: PANTOprazole 40 MG TAB PO SCH ×2 (06:15→16:03)
[2019-05-01 06:46] LABS: Calcium 9.3 mg/dl (8.5-10.1); Est GFR (African American) 22.9; Est GFR (Non-African American) 19.7; Potassium 4.3 mmol/L (3.5-5.1)
[2019-05-01] MEDS: SPIRONOLACTONE 25 MG TAB PO SCH (08:10)
[2019-05-01] MEDS: POTASSIUM CHLORIDE 20 MEQ TABCR PO SCH ×2 (08:10→20:26)
[2019-05-01] MEDS: ATORVASTATIN 40 MG TAB PO SCH (08:11)
[2019-05-01] MEDS: ASPIRIN 81 MG ECTAB PO SCH (08:11)
[2019-05-01] MEDS: TAMSULOSIN HCL 0.4 MG CAP PO SCH (08:11)
[2019-05-01] MEDS: SERTRALINE HCL 50 MG TABLET PO SCH (08:11)
[2019-05-01] MEDS: CALCIUM POLYCARBOPHIL 625MG TAB PO SCH (08:11)
[2019-05-01] MEDS: DOCUSATE SODIUM 100 MG CAP PO SCH (08:12)
[2019-05-01] MEDS: CLOPIDOGREL BISULFATE 75 MG TAB PO SCH (08:12)
[2019-05-01] MEDS: ISOSORBIDE MONO EXTENDED REL 60 MG TABCR PO SCH (08:12)
[2019-05-01] MEDS: METOPROLOL SUCC 50MG EXT REL TAB PO SCH (08:12)
[2019-05-01] MEDS: CHOLECALCIFEROL 1,000 UNITS TAB PO SCH (08:12)
[2019-05-01] MEDS: INSULIN ASPART 100 UNITS/ML 3 ML PEN SC SCH ×4 (08:14→20:25)
[2019-05-01] MEDS ORDERED: INSULIN GLARGINE SOLOSTAR 100 UNITS/ML 3 ML PEN SC SCH (09:00)
--- NOTE | 2019-05-01 09:41 | Hospitalist Progress Note ---
Date of Service May 01, 2019 Assessment & Plan (1) Acute on chronic systolic CHF (congestive heart failure): Continue Lasix drip. Some decrease in UOP and worsening renal function. Per Nephro, cont Lasix drip for another day. (2) Elevated troponin: Demand ischemia in setting of cardiomyopathy. (3) CAD (coronary artery disease): stable without chest pain, Cont medical management including Plavix, Lip tor, ASA 81, Imdur 30, Toprol XL 50. (4) Ischemic cardiomyopathy: Cont with medical management as above and spironolactone. (5) Left ventricular apical thrombus: Therapeutic INR, continue Coumadin (6) Diabetes mellitus type II, uncontrolled: Uncontrolled A1C, however, too much insulin caused hypoglycemia this admission. #3 carb coverage and sliding scale, fasting blood sugars around goal but uncontrolled throughout the day. He is reliably eating and feeling better. Home dose is 60 Units BID. Will increase to 40 Units BID now. (7) CKD (chronic kidney disease) stage 3, GFR 30-59 ml/min: At baseline. Cont to monitor daily while diuresing on lasix drip. (8) Hypertension: At goal, cont Lasix drip, Toprol XL, aldactone. (9) BPH (benign prostatic hyperplasia): Continue Flomax (10) Depression: Mood stable continue Zoloft (11) GERD (gastroesophageal reflux disease): As Omeprazole and Plavix interact, possibly decreasing the effectiveness of the Plavix, this was switched to Protonix 40mg PO BID. Defer to PCP to de- escalate therapy to 40mg daily for maintenance based on symptom control. (12) DVT prophylaxis: therapeutic on warfarin Full Code Dispo-cont PCU Avis Davis DO [facility] Hospitalist Subjective Feeling well, improvement in breathing but still dependent on oxygen at rest during day time. Baseline is use of oxygen at night per his report. Ambulating today. Feels edema is improved. Denies heartburn or chest pain today. Review of Systems Review of Systems: All systems reviewed & are unremarkable except as noted in HPI & below Physical Exam Physical Exam: CONSTITUTIONAL: obese, vitals as above, generally well- appearing EYES: normal conjunctivae, no scleral icterus ENT: MMM RESPIRATORY: clear to auscultation bilaterally, no crackles, rales or wheezes, normal respiratory effort CARDIOVASCULAR: regular rate and rhythm, S1 and 2 heard without murmurs, gallops or rubs, no JVD, 1+ edema in LE bilat GASTROINTESTINAL: normal bowel sounds, soft, nontender, nondistended but protuberant MUSCULOSKELETAL: strength 5/5 throughout, head is normocephalic and atraumatic, no gross focal deficits. SKIN: warm and dry, vesicular blisters on the anterior tibiae bilaterally which have opened and drained. NEUROLOGIC: CN 2-12 grossly intact, normal cognition and speech, no gross focal deficits. PSYCHIATRIC: alert cooperative and oriented to person, place and time. Results & Data Vital Signs (Past 12 Hours) Vital Signs Temp Pulse Resp BP Pulse Ox 05/01/19 06:58 36.3 C L 61 24 103/66 99 05/01/19 02:57 36.8 C 61 20 97/58 L 98 04/30/19 23:23 107/60 04/30/19 23:15 36.7 C 61 19 86/58 L 95 Laboratory Results BMP 05/01/19 05:40 Sodium 134 L Potassium 4.3 D Chloride 91 L Carbon Dioxide 35 H BUN 90 H Creatinine 2.91 H D Glucose 212 H Calcium 9.3 Medications Administered Current Inpatient Medications Acetaminophen (Tylenol) 650 mg PO Q4H PRN PRN Reason: Pain or Fever Stop: 05/25/19 15:24 Last Admin: 04/30/19 20:36 Dose: 650 mg Documented by: Aspirin (E[facility]rin Ectab) [facility] Stop: 05/26/19 08:59 Last Admin: 05/01/19 08:11 Dose: 81 mg Documented by: Atorvastatin Calcium (Lipitor) 80 mg PO DAILY [facility] Stop: 05/26/19 08:59 Last Admin: 05/01/19 08:11 Dose: 80 mg Documented by: Calcium Polycarbophil (Fibercon) [facility] Stop: 05/26/19 08:59 Last Admin: 05/01/19 08:11 Dose: 1 tab Documented by: Clopidogrel Bisulfate (Plavix) [facility] Stop: 05/26/19 08:59 Last Admin: 05/01/19 08:12 Dose: 75 mg Documented by: Dextrose (Dextrose 50%) 25 - 50 ml IV UD PRN; Protocol PRN Reason: Hypoglycemia Protocol Stop: 05/25/19 15:24 Docusate Sodium (Colace) 200 mg PO DAILY [facility] Stop: 05/26/19 08:59 Last Admin: 05/01/19 08:12 Dose: 200 mg Documented by: Glucagon (Glucagen) 1 mg SQ UD PRN; Protocol PRN Reason: Hypoglycemia Protocol Stop: 05/25/19 15:24 Glucose (Glucose 40%) 15 - 30 gm PO UD PRN; Protocol PRN Reason: Hypoglycemia Protocol Stop: 05/25/19 15:24 Glucose (Dex4 Glucose) 4 - 8 tabs PO UD PRN; Protocol PRN Reason: Hypoglycemia Protocol Stop: 05/25/19 15:24 Furosemide 100 mg/ Dextrose 100 mls @ 20 mls/hr IV .Q5H [facility] Stop: 05/25/19 15:44 Last Admin: 05/01/19 06:15 Dose: 20 mg/hr, 20 mls/hr Documented by: Insulin Aspart (Novolog Flexpen) 0 units SC [facility] Stop: 05/25/19 16:29 Last Admin: 05/01/19 08:14 Dose: 29 units Documented by: Insulin Glargine (Lantus Solostar Pen) 25 units SC [facility]; Protocol Stop: 05/30/19 20:59 Last Admin: 04/30/19 21:01 Dose: 25 units Documented by: Insulin Glargine (Lantus Solostar Pen) 35 units SC [facility] Stop: 05/31/19 08:59 Last Admin: 05/01/19 08:13 Dose: 35 units Documented by: Isosorbide Mononitrate (Imdur Extended Rel) 30 mg PO [facility] Stop: 05/26/19 08:59 Last Admin: 05/01/19 08:12 Dose: 30 mg Documented by: Metoprolol Succinate (Toprol Xl) 50 mg PO [facility] Stop: 05/26/19 08:59 Last Admin: 05/01/19 08:12 Dose: 50 mg Documented by: Miscellaneous (Carbohydrates For Hypoglycemia) 15 - 30 gm PO UD PRN PRN Reason: Hypoglycemia Treatment Stop: 05/25/19 15:24 Last Admin: 04/26/19 16:37 Dose: 15 gm Documented by: Nitroglycerin (Nitrostat) 0.4 mg SL UD PRN PRN Reason: Chest Pain Stop: 05/25/19 15:24 Ondansetron HCl (Zofran) 4 mg IV Q6H PRN PRN Reason: Nausea Stop: 05/25/19 15:24 Last Admin: 05/01/19 02:50 Dose: 4 mg Documented by: Pantoprazole Sodium (Protonix) 40 mg PO BID@0630,1600 [facility]; Protocol Stop: 05/25/19 20:59 Last Admin: 05/01/19 06:15 Dose: 40 mg Documented by: Polyethylene Glycol (Miralax Powder Packet) 17 gm PO DAILY PRN PRN Reason: Constipation Stop: 05/25/19 15:24 Potassium Chloride (Klor-Con M20) 40 meq PO BID [facility] Stop: 05/27/19 10:44 Last Admin: 05/01/19 08:10 Dose: 40 meq Documented by: Sertraline HCl (Zoloft) 50 mg PO DAILY [facility] Stop: 05/26/19 08:59 Last Admin: 05/01/19 08:11 Dose: 50 mg Documented by: Spironolactone (Aldactone) 12.5 mg PO DAILY [facility] Stop: 05/26/19 08:59 Last Admin: 05/01/19 08:10 Dose: 12.5 mg Documented by: Tamsulosin HCl (Flomax) 0.4 mg PO DAILY [facility] Stop: 05/26/19 08:59 Last Admin: 05/01/19 08:11 Dose: 0.4 mg Documented by: Vitamin D (Vitamin D3) 1,000 units PO DAILY [facility] Stop: 05/26/19 08:59 Last Admin: 05/01/19 08:12 Dose: 1,000 units Documented by: Warfarin Sodium (Coumadin) 7.5 mg PO MoFr@1600 [facility] Stop: 05/27/19 15:59 Last Admin: 04/30/19 16:32 Dose: 7.5 mg Documented by: Warfarin Sodium (Coumadin) 10 mg PO SuTuWeThSa@1600 [facility] Stop: 05/28/19 15:59 Last Admin: 04/28/19 16:03 Dose: 10 mg Documented by: Zolpidem Tartrate (Ambien) 5 mg PO HS PRN PRN Reason: Sleep Stop: 05/26/19 21:13 Last Admin: 04/30/19 20:36 Dose: 5 mg Documented by: (1) Hypertension Hypertension type: essential hypertension Qualified Code(s): I10 - Essential (primary) hypertension
--- NOTE | 2019-05-01 11:31 | Cardiology Progress Note ---
Date of Service May 01, 2019 Assessment & Plan (1) CHF (congestive heart failure): Acute on chronic heart failure with reduced ejection fraction due to coronary heart disease, ischemic cardiomyopathy, with moderate to severe left ventricular systolic dysfunction. Patient underwent complex left main, circumflex, ramus PCI with Impella device support in August,, [facility], as he was felt to be a poor candidate for surgery due to his low ejection fraction and baseline creatinine in the range of 2 mg/dL. Furosemide infusion at 20 mg/h. Unfortunately urine output has declined over the last 24 hours with rise in creatinine. Negative 2.2 L continue Lasix today with low threshold to transition to oral tomorrow. Monitor renal function. Appreciate nephrology input. Patient had been discharged last month on a dose of torsemide 60 mg a.m., 40 mg p.m., spironolactone, and metolazone 2.5 mg weekly on Mondays. Would consider discharging him on higher dose, torsemide 100 mg every morning, 40 mg every afternoon, with metolazone 1-2 times per week. Patient is followed by [facility] and we have been able to follow labs as outpt. and administer IV furosemide as outpt. Pt's primary combat systems engineer is Dr Diane, Followed also recently by Mr Tiwari in HF clinic. (2) Left ventricular apical thrombus: Continue coumadin. (3) Biventricular cardiac pacemaker in situ: Has biventricular pacemaker for heart rate support without AICD per patient's preference. Supervising Physician Co-Signing Physician Notes I have reviewed the chart, discussed the case with Lina, interviewed and examined the patient. I agree with the current diuretic management. Nephrology's help is appreciated. Subjective Patient examined sitting in the chair. Feet elevated. Feels his SOB and fluid is slowly improving. Denies recent chest pain. Edema present, but improved, per patient. No dizziness. Review of Systems Review of Systems: All systems reviewed & are unremarkable except as noted in HPI & below Physical Exam Constitutional: WD/WN, vitals as above + morbidly obese Eyes: PERRL, conjunctivae normal, anicteric sclerae Respiratory: normal respiratory effort Auscultation: + diminished lung sounds; no crackles, no rales and no wheezes Cardiovascular: Rate/Rhythm: regular rate and regular rhythm Heart Sounds: no murmur Extremities: + edema (2+ to knees) Gastrointestinal (Abdomen): normal bowel sounds, soft, nontender, no hepatosplenomegaly Neurologic: PERRL, EOMI, accommodation nl, no face palsy, no dysarthria Psychiatric: A+Ox3, euthymic affect Results & Data Vital Signs (Past 12 Hours) Vital Signs Temp Pulse Resp BP Pulse Ox 05/01/19 10:59 36.9 C 60 20 95/46 L 99 05/01/19 06:58 36.3 C L 61 24 103/66 99 05/01/19 02:57 36.8 C 61 20 97/58 L 98 Laboratory Results 05/01/19 05/01/19 04/30/19 Range/Units 06:58 05:40 20:40 Sodium 134 L (136-145) mmol/L Potassium 4.3 D (3.5-5.1) mmol/L Chloride 91 L (98-107) mmol/L Carbon Dioxide 35 H (21-32) mmol/L Anion Gap 8.0 (3-11) BUN 90 H (7-18) mg/dl Creatinine 2.91 H D (0.6-1.4) mg/dl Est Cr Clr Drug Dosing 29.0 ml/min Est GFR ( Amer) 22.9 Est GFR (Non-Af Amer) 19.7 BUN/Creatinine Ratio 31.0 H (10-20) Glucose 212 H (70-99) mg/dl POC Glucose 227 H 246 H (70-99) Calcium 9.3 (8.5-10.1) mg/dl 04/30/19 04/30/19 Range/Units 15:43 11:31 Sodium (136-145) mmol/L Potassium (3.5-5.1) mmol/L Chloride (98-107) mmol/L Carbon Dioxide (21-32) mmol/L Anion Gap (3-11) BUN (7-18) mg/dl Creatinine (0.6-1.4) mg/dl Est Cr Clr Drug Dosing ml/min Est GFR ( Amer) Est GFR (Non-Af Amer) BUN/Creatinine Ratio (10-20) Glucose (70-99) mg/dl POC Glucose 203 H 239 H (70-99) Calcium (8.5-10.1) mg/dl Medications Administered Current Inpatient Medications Acetaminophen (Tylenol) 650 mg PO Q4H PRN PRN Reason: Pain or Fever Stop: 05/25/19 15:24 Last Admin: 04/30/19 20:36 Dose: 650 mg Documented by: Aspirin (Ecotrin Ectab) 81 mg PO QAM [facility] Stop: 05/26/19 08:59 Last Admin: 05/01/19 08:11 Dose: 81 mg Documented by: Atorvastatin Calcium (Lipitor) 80 mg PO DAILY [facility] Stop: 05/26/19 08:59 Last Admin: 05/01/19 08:11 Dose: 80 mg Documented by: Calcium Polycarbophil (Fibercon) 1 tab PO [facility] Stop: 05/26/19 08:59 Last Admin: 05/01/19 08:11 Dose: 1 tab Documented by: Clopidogrel Bisulfate (Plavix) 75 mg PO [facility] Stop: 05/26/19 08:59 Last Admin: 05/01/19 08:12 Dose: 75 mg Documented by: Dextrose (Dextrose 50%) 25 - 50 ml IV UD PRN; Protocol PRN Reason: Hypoglycemia Protocol Stop: 05/25/19 15:24 Docusate Sodium (Colace) 200 mg PO DAILY [facility] Stop: 05/26/19 08:59 Last Admin: 05/01/19 08:12 Dose: 200 mg Documented by: Glucagon (Glucagen) 1 mg SQ UD PRN; Protocol PRN Reason: Hypoglycemia Protocol Stop: 05/25/19 15:24 Glucose (Glucose 40%) 15 - 30 gm PO UD PRN; Protocol PRN Reason: Hypoglycemia Protocol Stop: 05/25/19 15:24 Glucose (Dex4 Glucose) 4 - 8 tabs PO UD PRN; Protocol PRN Reason: Hypoglycemia Protocol Stop: 05/25/19 15:24 Furosemide 100 mg/ Dextrose 100 mls @ 20 mls/hr IV .Q5H [facility] Stop: 05/25/19 15:44 Last Admin: 05/01/19 06:15 Dose: 20 mg/hr, 20 mls/hr Documented by: Insulin Aspart (Novolog Flexpen) 0 units SC ACHS [facility] Stop: 05/25/19 16:29 Last Admin: 05/01/19 08:14 Dose: 29 units Documented by: Insulin Glargine (Lantus Solostar Pen) 25 units SC [facility]; Protocol Stop: 05/30/19 20:59 Last Admin: 04/30/19 21:01 Dose: 25 units Documented by: Insulin Glargine (Lantus Solostar Pen) 35 units SC [facility] Stop: 05/31/19 08:59 Last Admin: 05/01/19 08:13 Dose: 35 units Documented by: Isosorbide Mononitrate (Imdur Extended Rel) 30 mg PO [facility] Stop: 05/26/19 08:59 Last Admin: 05/01/19 08:12 Dose: 30 mg Documented by: Metoprolol Succinate (Toprol Xl) 50 mg PO [facility] Stop: 05/26/19 08:59 Last Admin: 05/01/19 08:12 Dose: 50 mg Documented by: Miscellaneous (Carbohydrates For Hypoglycemia) 15 - 30 gm PO UD PRN PRN Reason: Hypoglycemia Treatment Stop: 05/25/19 15:24 Last Admin: 04/26/19 16:37 Dose: 15 gm Documented by: Nitroglycerin (Nitrostat) 0.4 mg SL UD PRN PRN Reason: Chest Pain Stop: 05/25/19 15:24 Ondansetron HCl (Zofran) 4 mg IV Q6H PRN PRN Reason: Nausea Stop: 05/25/19 15:24 Last Admin: 05/01/19 02:50 Dose: 4 mg Documented by: Pantoprazole Sodium (Protonix) 40 mg PO BID@0630,1600 [facility]; Protocol Stop: 05/25/19 20:59 Last Admin: 05/01/19 06:15 Dose: 40 mg Documented by: Polyethylene Glycol (Miralax Powder Packet) 17 gm PO DAILY PRN PRN Reason: Constipation Stop: 05/25/19 15:24 Potassium Chloride (Klor-Con M20) 40 meq PO BID [facility] Stop: 05/27/19 10:44 Last Admin: 05/01/19 08:10 Dose: 40 meq Documented by: Sertraline HCl (Zoloft) 50 mg PO DAILY [facility] Stop: 05/26/19 08:59 Last Admin: 05/01/19 08:11 Dose: 50 mg Documented by: Spironolactone (Aldactone) 12.5 mg PO DAILY [facility] Stop: 05/26/19 08:59 Last Admin: 05/01/19 08:10 Dose: 12.5 mg Documented by: Tamsulosin HCl (Flomax) 0.4 mg PO DAILY [facility] Stop: 05/26/19 08:59 Last Admin: 05/01/19 08:11 Dose: 0.4 mg Documented by: Vitamin D (Vitamin D3) 1,000 units PO DAILY [facility] Stop: 05/26/19 08:59 Last Admin: 05/01/19 08:12 Dose: 1,000 units Documented by: Warfarin Sodium (Coumadin) 7.5 mg PO MoFr@1600 [facility] Stop: 05/27/19 15:59 Last Admin: 04/30/19 16:32 Dose: 7.5 mg Documented by: Warfarin Sodium (Coumadin) 10 mg PO SuTuWeThSa@1600 [facility] Stop: 05/28/19 15:59 Last Admin: 04/28/19 16:03 Dose: 10 mg Documented by: Zolpidem Tartrate (Ambien) 5 mg PO HS PRN PRN Reason: Sleep Stop: 05/26/19 21:13 Last Admin: 04/30/19 20:36 Dose: 5 mg Documented by:
[2019-05-01] MEDS: ACETAMINOPHEN 325 MG TAB PO PRN ×2 (12:16→20:31)
[2019-05-01] MEDS: WARFARIN SOD 10 MG TAB PO SCH (16:03)
--- NOTE | 2019-05-01 16:24 | Nephrology Progress Note ---
Date of Service May 01, 2019 Assessment & Plan (1) CKD (chronic kidney disease) stage 3, GFR 30-59 ml/min: baseline creatinine 1.7-2.0 as outpatient last month; creatinine up trending at 2.9 today likely in setting of diuresis. bland urine sediment. ckd likely multifactorial from DM, HTN, HF/cardiorenal syndrome and large dose obligate diuretics. chemistries are acceptable. He was only net -200 mL yesterday. He has a Stewart catheter now. If renal function continues to worsen or stop Lasix drip. I also discussed with patient that there is a possibility of worsening renal function with aggressive diuresis and ending up on dialysis. He is not looking forward to dialysis but is open to doing dialysis if kidneys fail. -continue Lasix drip at 20. -daily bmp -HF measures as below -on spironolactone as well (2) Acute on chronic systolic CHF (congestive heart failure): Continue diuresis with Lasix drip. -Continue daily standing wt -Continue FR to 1.2L /day; cont low Na diet Subjective Patient seen in follow-up for acute kidney injury on CKD and volume overload. He complains of shortness of breath. He is requiring oxygen all the time. He is on nocturnal oxygen at home. He also complains of lower extremity swelling. Seen with daughter at the bedside. Review of Systems Review of Systems: All systems reviewed & are unremarkable except as noted in HPI & below Physical Exam Physical Exam: General exam: Appears comfortable, no acute distress HEENT: Pupils are equal and reactive to light Neck: No JVD, neck is supple trachea is midline Respiratory system: Reduced breath sounds bilaterally. Gastrointestinal: Abdomen is soft, non distended, non tender, bowel sounds are present CVS: Regular rate and rhythm. No murmurs, rubs or gallops Musculoskeletal: No joint or muscle tenderness Extremities: Non tender, 1+ edema, peripheral pulses are present Neuro: Oriented, no tremors, no focal neurological deficits Skin: No rashes Results & Data Vital Signs (Past 12 Hours) Vital Signs Temp Pulse Resp BP Pulse Ox 05/01/19 15:08 36.5 C 60 20 101/66 98 05/01/19 10:59 36.9 C 60 20 95/46 L 99 05/01/19 06:58 36.3 C L 61 24 103/66 99 Laboratory Results Laboratory Results - last 24 hr 04/30/19 05/01/19 05/01/19 20:40 05:40 06:58 Sodium 134 L Potassium 4.3 D Chloride 91 L Carbon Dioxide 35 H Anion Gap 8.0 BUN 90 H Creatinine 2.91 H D Est Cr Clr Drug Dosing 29.0 Est GFR ( Amer) 22.9 Est GFR (Non-Af Amer) 19.7 BUN/Creatinine Ratio 31.0 H Glucose 212 H POC Glucose 246 H 227 H Calcium 9.3 05/01/19 11:36 Sodium Potassium Chloride Carbon Dioxide Anion Gap BUN Creatinine Est Cr Clr Drug Dosing Est GFR ( Amer) Est GFR (Non-Af Amer) BUN/Creatinine Ratio Glucose POC Glucose 227 H Calcium
[2019-05-01] MEDS: INSULIN GLARGINE SOLOSTAR 100 UNITS/ML 3 ML PEN SC SCH (20:24)
[2019-05-01] MEDS: ZOLPIDEM TARTRATE 5 MG TAB PO PRN (20:31)
[2019-05-02] MEDS: FUROSEMIDE 100 MG in DEXTROSE 5% 90 ML IV SCH ×2 (03:01→08:38)
[2019-05-02 05:52] LABS: Hematocrit (blood only) 37.5 % (42-52); Hemoglobin 12.2 g/dL (14.0-18.0); Mean Corpuscular Hgb Conc 32.5 g/dL (32-36); Mean Platelet Volume 11.1 fL (7.4-10.4); Platelet Count 175 K/uL (130-400); RDW Coefficient of Variation 15.5 % (11.5-14.5); RDW Standard Deviation 56.8 fL (36.4-46.3); Red Blood Count 3.75 M/uL (4.7-6.1); White Blood Count 8.86 K/uL (4.8-10.8)
[2019-05-02] MEDS: PANTOprazole 40 MG TAB PO SCH ×2 (05:53→16:59)
[2019-05-02 06:08] LABS: INR 3.3 (0.9-1.1); Prothrombin Time 31.2 Seconds (9.0-12.0)
[2019-05-02 06:23] LABS: BUN Creatinine Ratio 33.1 (10-20); Calcium 9.2 mg/dl (8.5-10.1); Creatinine Clr Calc Pharmacy 28.8 ml/min; Est GFR (African American) 22.5; Est GFR (Non-African American) 19.4; Potassium 4.2 mmol/L (3.5-5.1)
[2019-05-02] MEDS: ACETAMINOPHEN 325 MG TAB PO PRN (07:43)
[2019-05-02] MEDS: INSULIN ASPART 100 UNITS/ML 3 ML PEN SC SCH ×4 (07:45→20:23)
[2019-05-02] MEDS: INSULIN GLARGINE SOLOSTAR 100 UNITS/ML 3 ML PEN SC SCH ×2 (07:46→20:24)
[2019-05-02] MEDS: ATORVASTATIN 40 MG TAB PO SCH (07:47)
[2019-05-02] MEDS: ISOSORBIDE MONO EXTENDED REL 60 MG TABCR PO SCH (07:48)
[2019-05-02] MEDS: CHOLECALCIFEROL 1,000 UNITS TAB PO SCH (07:48)
[2019-05-02] MEDS: DOCUSATE SODIUM 100 MG CAP PO SCH (07:48)
[2019-05-02] MEDS: METOPROLOL SUCC 50MG EXT REL TAB PO SCH (07:48)
[2019-05-02] MEDS: CLOPIDOGREL BISULFATE 75 MG TAB PO SCH (07:48)
[2019-05-02] MEDS: POTASSIUM CHLORIDE 20 MEQ TABCR PO SCH ×2 (07:49→19:44)
[2019-05-02] MEDS: TAMSULOSIN HCL 0.4 MG CAP PO SCH (07:50)
[2019-05-02] MEDS: ASPIRIN 81 MG ECTAB PO SCH (07:50)
[2019-05-02] MEDS: SPIRONOLACTONE 25 MG TAB PO SCH (07:50)
[2019-05-02] MEDS: SERTRALINE HCL 50 MG TABLET PO SCH (07:51)
[2019-05-02] MEDS: CALCIUM POLYCARBOPHIL 625MG TAB PO SCH (07:51)
--- NOTE | 2019-05-02 10:40 | XRay Report ---
XR chest 2V routine HISTORY: Shortness of breath. Congestive heart failure. COMPARISON: Chest 04/25/2019. FINDINGS: No pneumothorax. The heart remains mildly enlarged. Mild congestive change has improved in the interval. Small right pleural effusion and right basilar densities as well as a trace left pleura l effusion. This has also improved. Left-sided pacemaker is again noted. No new focal lung consolidat ions. IMPRESSION: 1. Near-complete resolution of the mild congestive change. 2. Improvement in the bilateral pleural effusions and right basilar airspace opacities. Electronically signed by: Rishi Penny M.D. 05/02/2019 10:39 AM
[2019-05-02] MEDS: TORSEMIDE 100 MG TAB PO SCH (11:18)
--- NOTE | 2019-05-02 11:38 | Cardiology Progress Note ---
Date of Service May 02, 2019 Assessment & Plan (1) CHF (congestive heart failure): Acute on chronic heart failure with reduced ejection fraction due to coronary heart disease, ischemic cardiomyopathy, with moderate to severe left ventricular systolic dysfunction. Patient underwent complex left main, circumflex, ramus PCI with Impella device support in August,, [facility] [place], as he was felt to be a poor candidate for surgery due to his low ejection fraction and baseline creatinine in the range of 2 mg/dL. Monitor renal function. Appreciate nephrology input. Transitioned to oral torsemide this AM by nephrology, 100 mg in AM. May need PM dose and/or metolazone 1-2 times per week. Patient is followed by [email or web address] and we have been able to follow labs as outpt. and administer IV furosemide as outpt. Pt's primary frame runner is Dr Diane, Followed also recently by Mr Tiwari in HF clinic. Anticipate discharge in 1-2 days. will arrange CHF f/u. (2) Left ventricular apical thrombus: Continue coumadin. (3) Biventricular cardiac pacemaker in situ: Has biventricular pacemaker for heart rate support without AICD per patient's preference. Supervising Physician Co-Signing Physician Notes I have reviewed the chart, discussed the case with Anastacia Lina, interviewed and examined the patient. I agree with the management so far. I also am appreciative of nephrology's input. The patient had his Lasix drip discontinued today. He is for potential discharge tomorrow. Subjective Patient feeling improved today. Anxious for discharge. SOB improved. Edema improving. no chest pain. Tolerating meds. Review of Systems Review of Systems: All systems reviewed & are unremarkable except as noted in HPI & below Physical Exam Constitutional: WD/WN, vitals as above + morbidly obese Eyes: PERRL, conjunctivae normal, anicteric sclerae Respiratory: normal respiratory effort Auscultation: + diminished lung sounds; no crackles, no rales and no wheezes Cardiovascular: Rate/Rhythm: regular rate and regular rhythm Heart Sounds: no murmur Extremities: + edema (2+ to knees) Gastrointestinal (Abdomen): normal bowel sounds, soft, nontender, no hepatosplenomegaly Neurologic: PERRL, EOMI, accommodation nl, no face palsy, no dysarthria Psychiatric: A+Ox3, euthymic affect Results & Data Vital Signs (Past 12 Hours) Vital Signs Temp Pulse Pulse Resp BP Pulse Ox 05/02/19 07:38 36.8 C 61 20 125/72 100 05/02/19 07:35 61 05/02/19 03:24 36.8 C 61 19 122/67 97
--- NOTE | 2019-05-02 12:31 | Nephrology Progress Note ---
Date of Service May 02, 2019 Assessment & Plan (1) CKD (chronic kidney disease) stage 3, GFR 30-59 ml/min: baseline creatinine 1.7-2.0 as outpatient last month; creatinine stable at 2.9 today. bland urine sediment. ckd likely multifactorial from DM, HTN, HF/cardiorenal syndrome and large dose obligate diuretics. chemistries are acceptable. He was even fluid balance yesterday. Remove Stewart catheter today due to significant pain. Will change to oral diuretics. Patient understands that there is a possibility of worsening renal function with aggressive diuresis and ending up on dialysis. He is not looking forward to dialysis but is open to doing dialysis if kidneys fail. -Stop Lasix drip and switch to oral torsemide -daily bmp -HF measures as below -on spironolactone as well (2) Acute on chronic systolic CHF (congestive heart failure): Patient weight almost same as on admission a week ago. Will discontinue Lasix drip and start torsemide 100 mg today. If is not significantly negative and metolazone tomorrow. -Continue daily standing wt -Continue FR to 1.2L /day; cont low Na diet Subjective Patient with the CKD and volume overload. He still complains of shortness of breath and requiring oxygen. He was complaining of severe pain due to Stewart catheter and wanted it removed. Still has significant lower extremity swelling. He was even fluid balance yesterday. Renal function is stable. Review of Systems Review of Systems: All systems reviewed & are unremarkable except as noted in HPI & below Physical Exam Physical Exam: General exam: Appears comfortable, no acute distress HEENT: Pupils are equal and reactive to light Neck: No JVD, neck is supple trachea is midline Respiratory system: Reduced breath sounds bilaterally. Gastrointestinal: Abdomen is soft, non distended, non tender, bowel sounds are present CVS: Regular rate and rhythm. No murmurs, rubs or gallops Musculoskeletal: No joint or muscle tenderness Extremities: Non tender, 2+ edema, peripheral pulses are present Neuro: Oriented, no tremors, no focal neurological deficits Skin: No rashes Results & Data Vital Signs (Past 12 Hours) Vital Signs Temp Pulse Pulse Resp BP Pulse Ox 05/02/19 11:35 36.4 C L 61 20 121/61 98 05/02/19 07:38 36.8 C 61 20 125/72 100 05/02/19 07:35 61 05/02/19 03:24 36.8 C 61 19 122/67 97 Laboratory Results Laboratory Results - last 24 hr 05/01/19 05/01/19 05/02/19 16:15 19:39 05:31 WBC 8.86 RBC 3.75 L Hgb 12.2 L Hct 37.5 L MCV 100.0 MCH 32.5 MCHC 32.5 RDW Std Deviation 56.8 H RDW Coeff of Marli 15.5 H Plt Count 175 MPV 11.1 H PT INR Sodium Potassium Chloride Carbon Dioxide Anion Gap BUN Creatinine Est Cr Clr Drug Dosing Est GFR ( Amer) Est GFR (Non-Af Amer) BUN/Creatinine Ratio Glucose POC Glucose 182 H 240 H Calcium 05/02/19 05/02/19 05/02/19 05:31 05:31 07:29 WBC RBC Hgb Hct MCV MCH MCHC RDW Std Deviation RDW Coeff of Marli Plt Count MPV PT 31.2 H INR 3.3 H Sodium 134 L Potassium 4.2 Chloride 93 L Carbon Dioxide 33 H Anion Gap 7.0 BUN 98 H Creatinine 2.95 H Est Cr Clr Drug Dosing 28.8 Est GFR ( Amer) 22.5 Est GFR (Non-Af Amer) 19.4 BUN/Creatinine Ratio 33.1 H Glucose 124 H POC Glucose 153 H Calcium 9.2 05/02/19 11:28 WBC RBC Hgb Hct MCV MCH MCHC RDW Std Deviation RDW Coeff of Marli Plt Count MPV PT INR Sodium Potassium Chloride Carbon Dioxide Anion Gap BUN Creatinine Est Cr Clr Drug Dosing Est GFR ( Amer) Est GFR (Non-Af Amer) BUN/Creatinine Ratio Glucose POC Glucose 205 H Calcium
--- NOTE | 2019-05-02 15:18 | Hospitalist Progress Note ---
Date of Service May 02, 2019 Assessment & Plan (1) Acute on chronic systolic CHF (congestive heart failure): Clinically much better today Has been on Lasix drip. Denies any shortness of breath and/or chest pain at rest Discussed with overlay operator and salsa dance instructor We will change intravenous Lasix to oral Likely discharge tomorrow Continue PT and OT (2) Elevated troponin: Demand ischemia in setting of cardiomyopathy. No ACS No more chest pain (3) CAD (coronary artery disease): Stable without chest pain, Cont medical management including Plavix, Liptor, ASA 81, Imdur 30, Toprol XL 50. (4) Ischemic cardiomyopathy: Cont with medical management as above and spironolactone. Improving (5) Left ventricular apical thrombus: Therapeutic INR, continue Coumadin INR is 3.3 today Coumadin as per recommendation (6) Diabetes mellitus type II, uncontrolled: Uncontrolled A1C, however, too much insulin caused hypoglycemia this admission. #3 carb coverage and sliding scale, fasting blood sugars around goal but uncontrolled throughout the day. He is reliably eating and feeling better. Home dose is 60 Units BID. Will increase to 40 Units BID now. (7) CKD (chronic kidney disease) stage 3, GFR 30-59 ml/min: At baseline. Cont to monitor daily while diuresing on lasix drip. Creatinine is slightly elevated Will recheck BMP tomorrow (8) Hypertension: At goal, cont Lasix drip, Toprol XL, aldactone. Blood pressure is controlled (9) BPH (benign prostatic hyperplasia): Continue Flomax (10) Depression: Mood stable continue Zoloft (11) GERD (gastroesophageal reflux disease): As Omeprazole and Plavix interact, possibly decreasing the effectiveness of the Plavix, this was switched to Protonix 40mg PO BID. Defer to PCP to de- escalate therapy to 40mg daily for maintenance based on symptom control. (12) DVT prophylaxis: therapeutic on warfarin Full Code Dispo-cont PCU Continue PT and OT evaluation He has been feeling a lot better Likely discharge tomorrow Subjective 05/02 The patient was seen and examined in telemetry unit This is a 79-year-old male who has a significant past medical history of chronic systolic CHF, ischemic cardiomyopathy EF 30 to 34%, multivessel CAD status post multivessel stenting on 08/2018, moderate pulmonary hypertension, left ventricular apical thrombus on warfarin, status post biventricular pacemaker implantation without ICD on 05/10/2018, obesity hypoventilation syndrome, T2DM, CKD stage III, BPH, depression/anxiety who presents to [facility] ED secondary to shortness of breath for 3 days prior to admission He has been feeling a lot better as of today He has been put back on oral diuretics He has been getting physical therapy and recommended to go to rehab Review of Systems Review of Systems: All systems reviewed and are unremarkable except as noted below Constitutional: + weakness Respiratory: + cough; no dyspnea Cardiovascular: no chest pain Neurologic: Alert and awake and oriented x3, Physical Exam Physical Exam: No apparent distress at rest. Sitting on a chair outside bed without any distress Constitutional: well developed, + morbidly obese and cooperative; not ill appearing Eyes: PERRL, conjunctivae normal, anicteric sclerae ENMT: Ears: no external ear abnormality Nose: no external nose abnormality Mouth: + dry oral mucous membranes Neck: trachea midline, no thyromegaly no nuchal rigidity Respiratory: normal respiratory effort Auscultation: + diminished lung sounds; no crackles, no rales, no rhonchi and no wheezes Cardiovascular: RRR, no murmur, no edema Rate/Rhythm: regular rate and regular rhythm Heart Sounds: no murmur Vessels: + JVD Extremities: + edema (2+ to knees) Gastrointestinal (Abdomen): Inspection/Auscultation: + abdomen distended and normal bowel sounds Percussion/Palpation: abdomen soft; abdomen nontender Musculoskeletal: no cyanosis or clubbing, extremities motor strength 5/5 Extremities: strength 5/5 throughout Skin: no rashes, warm and dry Neurologic: PERRL, EOMI, accommodation nl, no face palsy, no dysarthria Psychiatric: A+Ox3, euthymic affect Speech: normal rate/rhythm/volume of speech Insight: + limited insight Lymphatic: no cervical or axillary lymphadenopathy Results & Data Vital Signs (Past 12 Hours) Vital Signs Temp Pulse Pulse Resp BP Pulse Ox 05/02/19 15:01 36.4 C L 59 L 20 119/67 98 05/02/19 11:35 36.4 C L 61 20 121/61 98 05/02/19 07:38 36.8 C 61 20 125/72 100 05/02/19 07:35 61 05/02/19 03:24 36.8 C 61 19 122/67 97 Laboratory Results Short CBC 05/02/19 Range/Units 05:31 WBC 8.86 (4.8-10.8) K/uL Hgb 12.2 L (14.0-18.0) g/dL Hct 37.5 L (42-52) % Plt Count 175 (130-400) K/uL BMP 05/02/19 05:31 Sodium 134 L Potassium 4.2 Chloride 93 L Carbon Dioxide 33 H BUN 98 H Creatinine 2.95 H Glucose 124 H Calcium 9.2 Medications Administered Current Inpatient Medications Acetaminophen (Tylenol) 650 mg PO Q4H PRN PRN Reason: Pain or Fever Stop: 05/25/19 15:24 Last Admin: 05/02/19 07:43 Dose: 650 mg Documented by: Aspirin (Ecotrin Ectab) 81 mg PO QAM [facility] Stop: 05/26/19 08:59 Last Admin: 05/02/19 07:50 Dose: 81 mg Documented by: Atorvastatin Calcium (Lipitor) 80 mg PO DAILY [facility] Stop: 05/26/19 08:59 Last Admin: 05/02/19 07:47 Dose: 80 mg Documented by: Calcium Polycarbophil (Fibercon) 1 tab PO QAM [facility] Stop: 05/26/19 08:59 Last Admin: 05/02/19 07:51 Dose: 1 tab Documented by: Clopidogrel Bisulfate (Plavix) 75 mg PO QAM [facility] Stop: 05/26/19 08:59 Last Admin: 05/02/19 07:48 Dose: 75 mg Documented by: Dextrose (Dextrose 50%) 25 - 50 ml IV UD PRN; Protocol PRN Reason: Hypoglycemia Protocol Stop: 05/25/19 15:24 Docusate Sodium (Colace) 200 mg PO DAILY [facility] Stop: 05/26/19 08:59 Last Admin: 05/02/19 07:48 Dose: 200 mg Documented by: Glucagon (Glucagen) 1 mg SQ UD PRN; Protocol PRN Reason: Hypoglycemia Protocol Stop: 05/25/19 15:24 Glucose (Glucose 40%) 15 - 30 gm PO UD PRN; Protocol PRN Reason: Hypoglycemia Protocol Stop: 05/25/19 15:24 Glucose (Dex4 Glucose) 4 - 8 tabs PO UD PRN; Protocol PRN Reason: Hypoglycemia Protocol Stop: 05/25/19 15:24 Insulin Aspart (Novolog Flexpen) 0 units SC ACHS [facility] Stop: 05/25/19 16:29 Last Admin: 05/02/19 12:31 Dose: 16 units Documented by: Insulin Glargine (Lantus Solostar Pen) 40 units SC BID [facility] Stop: 05/31/19 20:59 Last Admin: 05/02/19 07:46 Dose: 40 units Documented by: Isosorbide Mononitrate (Im[facility]ur Extended Rel) [facility] Stop: 05/26/19 08:59 Last Admin: 05/02/19 07:48 Dose: 30 mg Documented by: Metoprolol Succinate (Toprol Xl) 50 mg PO QAM [facility] Stop: 05/26/19 08:59 Last Admin: 05/02/19 07:48 Dose: 50 mg Documented by: Miscellaneous (Carbohydrates For Hypoglycemia) 15 - 30 gm PO UD PRN PRN Reason: Hypoglycemia Treatment Stop: 05/25/19 15:24 Last Admin: 04/26/19 16:37 Dose: 15 gm Documented by: Nitroglycerin (Nitrostat) 0.4 mg SL UD PRN PRN Reason: Chest Pain Stop: 05/25/19 15:24 Ondansetron HCl (Zofran) 4 mg IV Q6H PRN PRN Reason: Nausea Stop: 05/25/19 15:24 Last Admin: 05/01/19 02:50 Dose: 4 mg Documented by: Pantoprazole Sodium (Protonix) 40 mg PO BID@0630,1600 [facility]; Protocol Stop: 05/25/19 20:59 Last Admin: 05/02/19 05:53 Dose: 40 mg Documented by: Polyethylene Glycol (Miralax Powder Packet) 17 gm PO DAILY PRN PRN Reason: Constipation Stop: 05/25/19 15:24 Potassium Chloride (Klor-Con M20) 40 meq PO BID [facility] Stop: 05/27/19 10:44 Last Admin: 05/02/19 07:49 Dose: 40 meq Documented by: Sertraline HCl (Zoloft) 50 mg PO DAILY [facility] Stop: 05/26/19 08:59 Last Admin: 05/02/19 07:51 Dose: 50 mg Documented by: Spironolactone (Aldactone) 12.5 mg PO DAILY [facility] Stop: 05/26/19 08:59 Last Admin: 05/02/19 07:50 Dose: 12.5 mg Documented by: Tamsulosin HCl (Flomax) 0.4 mg PO DAILY [facility] Stop: 05/26/19 08:59 Last Admin: 05/02/19 07:50 Dose: 0.4 mg Documented by: Torsemide (Demadex) 100 mg PO QAM [facility] Stop: 06/01/19 09:59 Last Admin: 05/02/19 11:18 Dose: 100 mg Documented by: Vitamin D (Vitamin D3) 1,000 units PO DAILY [facility] Stop: 05/26/19 08:59 Last Admin: 05/02/19 07:48 Dose: 1,000 units Documented by: Warfarin Sodium (Coumadin) 7.5 mg PO MoFr@1600 [facility] Stop: 05/27/19 15:59 Last Admin: 04/30/19 16:32 Dose: 7.5 mg Documented by: Warfarin Sodium (Coumadin) 10 mg PO SuTuWeThSa@1600 [facility] Stop: 05/28/19 15:59 Last Admin: 05/01/19 16:03 Dose: 10 mg Documented by: Zolpidem Tartrate (Ambien) 5 mg PO HS PRN PRN Reason: Sleep Stop: 05/26/19 21:13 Last Admin: 05/01/19 20:31 Dose: 5 mg Documented by: (1) Hypertension Hypertension type: essential hypertension Qualified Code(s): I10 - Essential (primary) hypertension
[2019-05-02] MEDS: WARFARIN SOD 10 MG TAB PO SCH (17:02)
[2019-05-02] MEDS ORDERED: WARFARIN SOD 7.5 MG TAB PO ONE (17:15)
[2019-05-02] MEDS: ZOLPIDEM TARTRATE 5 MG TAB PO PRN (20:27)
[2019-05-03] MEDS: ACETAMINOPHEN 325 MG TAB PO PRN (03:14)
[2019-05-03] MEDS: PANTOprazole 40 MG TAB PO SCH (05:56)
[2019-05-03 06:55] LABS: Prothrombin Time 34.4 Seconds (9.0-12.0)
[2019-05-03 06:59] LABS: INR 3.7 (0.9-1.1)
[2019-05-03 07:05] LABS: Calcium 9.4 mg/dl (8.5-10.1); Creatinine Clr Calc Pharmacy 27.4 ml/min; Est GFR (African American) 21.1; Est GFR (Non-African American) 18.2; Magnesium 2.8 mg/dl (1.8-2.4); Potassium 4.7 mmol/L (3.5-5.1)
[2019-05-03 07:11] VITALS: TEMP 97.5
[2019-05-03] MEDS: INSULIN ASPART 100 UNITS/ML 3 ML PEN SC SCH ×2 (07:56→12:53)
[2019-05-03] MEDS: INSULIN GLARGINE SOLOSTAR 100 UNITS/ML 3 ML PEN SC SCH (07:57)
[2019-05-03] MEDS: SPIRONOLACTONE 25 MG TAB PO SCH (08:00)
[2019-05-03] MEDS: POTASSIUM CHLORIDE 20 MEQ TABCR PO SCH (08:00)
[2019-05-03] MEDS: TAMSULOSIN HCL 0.4 MG CAP PO SCH (08:00)
[2019-05-03] MEDS: METOPROLOL SUCC 50MG EXT REL TAB PO SCH (08:00)
[2019-05-03] MEDS: ASPIRIN 81 MG ECTAB PO SCH (08:01)
[2019-05-03] MEDS: CALCIUM POLYCARBOPHIL 625MG TAB PO SCH (08:01)
[2019-05-03] MEDS: TORSEMIDE 100 MG TAB PO SCH (08:01)
[2019-05-03] MEDS: CHOLECALCIFEROL 1,000 UNITS TAB PO SCH (08:02)
[2019-05-03] MEDS: SERTRALINE HCL 50 MG TABLET PO SCH (08:02)
[2019-05-03] MEDS: ATORVASTATIN 40 MG TAB PO SCH (08:02)
[2019-05-03] MEDS: ISOSORBIDE MONO EXTENDED REL 60 MG TABCR PO SCH (08:02)
[2019-05-03] MEDS: DOCUSATE SODIUM 100 MG CAP PO SCH (08:02)
[2019-05-03] MEDS: CLOPIDOGREL BISULFATE 75 MG TAB PO SCH (08:02)
[2019-05-03] MEDS ORDERED: CALCIUM CARBONATE 500 MG CHEWABLE TAB PO PRN (10:29)
--- NOTE | 2019-05-03 10:51 | Cardiology Progress Note ---
Date of Service May 03, 2019 Assessment & Plan (1) CHF (congestive heart failure): Acute on chronic heart failure with reduced ejection fraction due to coronary heart disease, ischemic cardiomyopathy, with moderate to severe left ventricular systolic dysfunction. Patient underwent complex left main, circumflex, ramus PCI with Impella device support in [place],, [facility], as he was felt to be a poor candidate for surgery due to his low ejection fraction and baseline creatinine in the range of 2 mg/dL. Monitor renal function. Appreciate nephrology input. Transitioned to oral torsemide by nephrology, 100 mg in AM. May need PM dose and/or metolazone 1-2 times per week. Patient is followed by [email or web address] and we have been able to follow labs as outpt. and administer IV furosemide as outpt. Pt's primary harp regulator is Dr Diane, Followed also recently by Mr Tiwari in HF clinic. Anticipate discharge today. Patient has f/u on 05/07 with Ene Tiwari PA-C for hospital f/u and pacer check. He should keep this appt if transportation from rehab can be arranged. (2) Left ventricular apical thrombus: Continue coumadin. (3) Biventricular cardiac pacemaker in situ: Has biventricular pacemaker for heart rate support without AICD per patient's preference. Supervising Physician Co-Signing Physician Notes The patient will be transferred to a rehab hospital today. No additional recommendations at this time. We will arrange follow-up for the patient. Subjective Patient feeling good today. Anxious for discharge. Going to rehab. SOB improved. Edema improving. no chest pain. Tolerating meds. Review of Systems Review of Systems: All systems reviewed & are unremarkable except as noted in HPI & below Physical Exam Constitutional: WD/WN, vitals as above + morbidly obese Eyes: PERRL, conjunctivae normal, anicteric sclerae Respiratory: normal respiratory effort Auscultation: + diminished lung sounds; no crackles, no rales and no wheezes Cardiovascular: Rate/Rhythm: regular rate and regular rhythm Heart Sounds: no murmur Extremities: + edema (2+ to knees) Gastrointestinal (Abdomen): normal bowel sounds, soft, nontender, no hepatosplenomegaly Neurologic: PERRL, EOMI, accommodation nl, no face palsy, no dysarthria Psychiatric: A+Ox3, euthymic affect Results & Data Vital Signs (Past 12 Hours) Vital Signs Temp Pulse Resp BP Pulse Ox 05/03/19 07:10 36.4 C L 61 20 134/75 98 05/03/19 03:20 36.7 C 56 L 19 90/65 L 98 05/02/19 22:52 36.8 C 62 18 112/85 92
[2019-05-03 11:05] VITALS: BP 107/71; O2SAT 99
--- NOTE | 2019-05-03 13:02 | Hospitalist Progress Note ---
Date of Service May 03, 2019 Assessment & Plan (1) Acute on chronic systolic CHF (congestive heart failure): Clinically much better today Has been on Lasix drip. Denies any shortness of breath and/or chest pain at rest Discussed with alternative energy technician and digital tech We will change intravenous Lasix to oral Clinically a lot better Patient with PT and recommended rehab He will be discharged to [facility] this afternoon Torsemide 100 mg in the morning for diuresis and frequent kidney function electrolytes check up as an outpatient (2) Elevated troponin: Demand ischemia in setting of cardiomyopathy. No ACS No more chest pain (3) CAD (coronary artery disease): Stable without chest pain, Cont medical management including Plavix, Liptor, ASA 81, Imdur 30, Toprol XL 50. Denies any chest pain and/or palpitation (4) Ischemic cardiomyopathy: Cont with medical management as above and spironolactone. CHF seems to be stable (5) Left ventricular apical thrombus: Therapeutic INR, continue Coumadin INR is 3.3 today Coumadin as per recommendation INR is 3.7 today We will continue Coumadin (6) Diabetes mellitus type II, uncontrolled: Uncontrolled A1C, however, too much insulin caused hypoglycemia this admission. #3 carb coverage and sliding scale, fasting blood sugars around goal but uncontrolled throughout the day. He is reliably eating and feeling better. Home dose is 60 Units BID. Will increase to 40 Units BID now. Insulin doses as before (7) CKD (chronic kidney disease) stage 3, GFR 30-59 ml/min: At baseline. Cont to monitor daily while diuresing on lasix drip. Creatinine is slightly elevated BUN and creatinine is going up-discussed with nephrology With oral dose of torsemide, creatinine expected to improve (8) Hypertension: At goal, cont Lasix drip, Toprol XL, aldactone. Blood pressure is controlled (9) BPH (benign prostatic hyperplasia): Continue Flomax (10) Depression: Mood stable continue Zoloft (11) GERD (gastroesophageal reflux disease): As Omeprazole and Plavix interact, possibly decreasing the effectiveness of the Plavix, this was switched to Protonix 40mg PO BID. Defer to PCP to de- escalate therapy to 40mg daily for maintenance based on symptom control. (12) DVT prophylaxis: therapeutic on warfarin Full Code Dispo-cont PCU Discussed with the daughter He will be discharged this afternoon to [facility] Subjective 05/02 The patient was seen and examined in telemetry unit This is a 79-year-old male who has a significant past medical history of chronic systolic CHF, ischemic cardiomyopathy EF 30 to 34%, multivessel CAD status post multivessel stenting on 08/2018, moderate pulmonary hypertension, left ventricular apical thrombus on warfarin, status post biventricular pacemaker implantation without ICD on 05/10/2018, obesity hypoventilation syndrome, T2DM, CKD stage III, BPH, depression/anxiety who presents to [facility] ED secondary to shortness of breath for 3 days prior to admission He has been feeling a lot better as of today He has been put back on oral diuretics He has been getting physical therapy and recommended to go to rehab The patient was seen and examined in telemetry unit 05/03 Patient was seen and examined in telemetry unit He has been feeling a lot better since yesterday Denies any significant symptoms at rest He will be discharged to [facility] today Review of Systems Review of Systems: All systems reviewed and are unremarkable except as noted below Constitutional: + weakness Respiratory: + cough and + dyspnea on exertion; no dyspnea Cardiovascular: no chest pain Neurologic: Alert and awake and oriented x3, Physical Exam Physical Exam: No apparent distress at rest Constitutional: well developed, + morbidly obese and cooperative; not ill appearing Eyes: PERRL, conjunctivae normal, anicteric sclerae ENMT: Ears: no external ear abnormality Nose: no external nose abnormality Mouth: + dry oral mucous membranes Neck: trachea midline, no thyromegaly no nuchal rigidity Respiratory: normal respiratory effort; no respiratory distress Auscultation: + diminished lung sounds; no crackles, no rales, no rhonchi and no wheezes Cardiovascular: Rate/Rhythm: regular rate and regular rhythm Heart Sounds: no murmur Vessels: + JVD Extremities: + edema (2+ to knees) Gastrointestinal (Abdomen): Inspection/Auscultation: + abdomen distended and normal bowel sounds Percussion/Palpation: abdomen soft; abdomen nontender Musculoskeletal: no cyanosis or clubbing, extremities motor strength 5/5 Extremities: strength 5/5 throughout No acute arthritis in any of the joints Skin: no rashes, warm and dry Neurologic: PERRL, EOMI, accommodation nl, no face palsy, no dysarthria Psychiatric: A+Ox3, euthymic affect Speech: normal rate/rhythm/volume of speech Insight: + limited insight Lymphatic: no cervical or axillary lymphadenopathy Results & Data Vital Signs (Past 12 Hours) Vital Signs Temp Pulse Pulse Resp BP Pulse Ox 05/03/19 11:02 36.4 C L 57 L 20 107/71 99 05/03/19 07:20 61 05/03/19 07:10 36.4 C L 61 20 134/75 98 05/03/19 03:20 36.7 C 56 L 19 90/65 L 98 Laboratory Results BMP 05/03/19 06:02 Sodium 135 L Potassium 4.7 Chloride 96 L Carbon Dioxide 32 BUN 112 H Creatinine 3.11 H Glucose 92 Calcium 9.4 Medications Administered Current Inpatient Medications Acetaminophen (Tylenol) 650 mg PO Q4H PRN PRN Reason: Pain or Fever Stop: 05/25/19 15:24 Last Admin: 05/03/19 03:14 Dose: 650 mg Documented by: Aspirin (Ecotrin Ectab) [facility] [place] Stop: 05/26/19 08:59 Last Admin: 05/03/19 08:01 Dose: 81 mg Documented by: Atorvastatin Calcium (Lipitor) 80 mg PO DAILY [facility] Stop: 05/26/19 08:59 Last Admin: 05/03/19 08:02 Dose: 80 mg Documented by: Calcium Carbonate (Tums) 500 mg PO Q4H PRN PRN Reason: Indigestion Stop: 06/02/19 10:28 Calcium Polycarbophil (Fibercon) 1 [facility] [place] Stop: 05/26/19 08:59 Last Admin: 05/03/19 08:01 Dose: 1 tab Documented by: Clopidogrel Bisulfate (Plavix) [facility] [place] Stop: 05/26/19 08:59 Last Admin: 05/03/19 08:02 Dose: 75 mg Documented by: Dextrose (Dextrose 50%) 25 - 50 ml IV UD PRN; Protocol PRN Reason: Hypoglycemia Protocol Stop: 05/25/19 15:24 Docusate Sodium (Colace) 200 mg PO DAILY [facility] Stop: 05/26/19 08:59 Last Admin: 05/03/19 08:02 Dose: 200 mg Documented by: Glucagon (Glucagen) 1 mg SQ UD PRN; Protocol PRN Reason: Hypoglycemia Protocol Stop: 05/25/19 15:24 Glucose (Glucose 40%) 15 - 30 gm PO UD PRN; Protocol PRN Reason: Hypoglycemia Protocol Stop: 05/25/19 15:24 Glucose (Dex4 Glucose) 4 - 8 tabs PO UD PRN; Protocol PRN Reason: Hypoglycemia Protocol Stop: 05/25/19 15:24 Insulin Aspart (Novolog Flexpen) 0 units SC ACHS [facility] Stop: 05/25/19 16:29 Last Admin: 05/03/19 12:53 Dose: 15 units Documented by: Insulin Glargine (Lantus Solostar Pen) 40 units SC BID [facility] Stop: 05/31/19 20:59 Last Admin: 05/03/19 07:57 Dose: 40 units Documented by: Isosorbide Mononitrate (Imdur Extended Rel) 30 mg PO [facility] Stop: 05/26/19 08:59 Last Admin: 05/03/19 08:02 Dose: 30 mg Documented by: Metoprolol Succinate (Toprol Xl) 50 [facility] [place] Stop: 05/26/19 08:59 Last Admin: 05/03/19 08:00 Dose: 50 mg Documented by: Miscellaneous (Carbohydrates For Hypoglycemia) 15 - 30 gm PO UD PRN PRN Reason: Hypoglycemia Treatment Stop: 05/25/19 15:24 Last Admin: 04/26/19 16:37 Dose: 15 gm Documented by: Nitroglycerin (Nitrostat) 0.4 mg SL UD PRN PRN Reason: Chest Pain Stop: 05/25/19 15:24 Ondansetron HCl (Zofran) 4 mg IV Q6H PRN PRN Reason: Nausea Stop: 05/25/19 15:24 Last Admin: 05/01/19 02:50 Dose: 4 mg Documented by: Pantoprazole Sodium (Protonix) 40 mg PO BID@0630,1600 [facility]; Protocol Stop: 05/25/19 20:59 Last Admin: 05/03/19 05:56 Dose: 40 mg Documented by: Polyethylene Glycol (Miralax Powder Packet) 17 gm PO DAILY PRN PRN Reason: Constipation Stop: 05/25/19 15:24 Potassium Chloride (Klor-Con M20) 40 meq PO BID [facility] Stop: 05/27/19 10:44 Last Admin: 05/03/19 08:00 Dose: 40 meq Documented by: Sertraline HCl (Zoloft) 50 mg PO DAILY [facility] Stop: 05/26/19 08:59 Last Admin: 05/03/19 08:02 Dose: 50 mg Documented by: Spironolactone (Aldactone) 12.5 mg PO DAILY [facility] Stop: 05/26/19 08:59 Last Admin: 05/03/19 08:00 Dose: 12.5 mg Documented by: Tamsulosin HCl (Flomax) 0.4 mg PO DAILY [facility] Stop: 05/26/19 08:59 Last Admin: 05/03/19 08:00 Dose: 0.4 mg Documented by: Torsemide (Demadex) 100 mg PO QAM [facility] Stop: 06/01/19 09:59 Last Admin: 05/03/19 08:01 Dose: 100 mg Documented by: Vitamin D (Vitamin D3) 1,000 units PO DAILY [facility] Stop: 05/26/19 08:59 Last Admin: 05/03/19 08:02 Dose: 1,000 units Documented by: Warfarin Sodium (Coumadin) 7.5 mg PO MoFr@1600 [facility] Stop: 05/27/19 15:59 Last Admin: 04/30/19 16:32 Dose: 7.5 mg Documented by: Warfarin Sodium (Coumadin) 10 mg PO SuTuWeThSa@1600 [facility] Stop: 05/28/19 15:59 Last Admin: 05/02/19 17:02 Dose: Not Given Documented by: Zolpidem Tartrate (Ambien) 5 mg PO HS PRN PRN Reason: Sleep Stop: 05/26/19 21:13 Last Admin: 05/02/19 20:27 Dose: 5 mg Documented by: (1) Hypertension Hypertension type: essential hypertension Qualified Code(s): I10 - Essential (primary) hypertension
[2019-05-03 14:31] VITALS: PULSE 114
--- NOTE | 2019-05-04 07:23 | Discharge Summary ---
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 Patient recently hospitalized to [facility] ED on 04/03 to 04/06 by FRANCISCO J secondary to acute decompensated systolic CHF and was discharged home with close outpatient follow-up with Padmini at home. called EMS this morning secondary to abrupt increase in shortness of breath. He feels his shortness breath has gotten worse over the past 3 days. Complains of shortness breath at rest as well as with exertion. He is unsure of any judi weight gain and frankly denies lower extremity edema. States he is trying to abide by fluid restriction and is compliant with his medications. Feels that he was improved after recent discharge but felt that "I could of used a few more days in the hospital." Further complains of difficulty sleeping secondary to orthopnea. Requires a recliner. Has increased abdominal bloating, nausea, decreased urinary frequency. States he uses 2 L of O2 at at bedtime but does not require it during the day. Denies any recent illness, fever, chills, sweats, lightheadedness, dizziness, presyncope, chest pain, palpitations, emesis, abdominal pain, diarrhea. Patient palpable last evening. Overall feels his appetite is been normal. In ED patient was noted to be hypoxic requiring 2 L O2 via NC. His troponin was elevated to 2.75, chronically elevated at 0.1. proBNP elevated to 10,991 which is increased from 5071 on 04/03/2019. BUN/creatinine slightly bumped at 72 and 2.28 respectively. Chest x-ray concerning with vascular congestion, pulmonary edema and bilateral pleural effusion. EKG reveals paced rhythm. Patient is not complaining of chest pain. Received 80mg IV furosemide with increased urinary output Admission Exam Per Admitting Provider Physical Exam: Gen: Elderly, Obese, M, sitting at edge of bed, pleasant, conversing easily, on O2 via NC, hard of hearing Head: Normocephalic, Atraumatic Eyes: Sclera normal, no conjunctival injection, PERRLA, EOMI ENT: normal pharynx, mucous membranes moist Neck: supple, no adenopathy, No JVD, no bruit, Resp: Clear to auscultation b/l with bibasilar decreased BS, no wheeze, rales, rhonchi. Normal insp/exp effort, no accessory muscle use CV: Regular rate, regular rhythm, no murmur, rub, gallop, or ectopy Abd: Obese, distended abdomen, firm, +BS x 4, nontender Musculoskeletal: moves extremities active rom x 4, strength intact, good cathode builder strength Extremities: B/L +2 edema, tense lower ext with venous insufficiency changes, Skin: warm, moist, no rash, negative turgor, cap refill < 2sec, + venous stasis changes lower ext b/l Neuro: Alert and oriented x 3, speech normal, good mood/affect, cran nerve 2-12 intact grossly : deferred Principal Diagnosis Acute on chronic systolic CHF, ischemic cardiomyopathy, left ventricular apical thrombus, chronic kidney disease, hypertension Discharge Exam Constitutional well developed, + morbidly obese and cooperative; not ill appearing Eyes PERRL, conjunctivae normal, anicteric sclerae ENMT Ears: no external ear abnormality Nose: no external nose abnormality Mouth: + dry oral mucous membranes Neck trachea midline, no thyromegaly no nuchal rigidity Respiratory normal respiratory effort; no respiratory distress Auscultation: + diminished lung sounds; no crackles, no rales, no rhonchi and no wheezes Cardiovascular RRR, no murmur, no edema Rate/Rhythm: regular rate and regular rhythm Heart Sounds: no murmur Vessels: + JVD Extremities: + edema (2+ to knees) Gastrointestinal (Abdomen) Inspection/Auscultation: + abdomen distended and normal bowel sounds Percussion/Palpation: abdomen soft; abdomen nontender Musculoskeletal no cyanosis or clubbing, extremities motor strength 5/5 Extremities: strength 5/5 throughout Skin no rashes, warm and dry Neurologic PERRL, EOMI, accommodation nl, no face palsy, no dysarthria Psychiatric A+Ox3, euthymic affect Speech: normal rate/rhythm/volume of speech Insight: + limited insight Lymphatic no cervical or axillary lymphadenopathy Discharge Data Allergies Allergy/AdvReac Type Severity Reaction Status Date / Time No Known Allergies Allergy Verified 04/25/19 11:13 Consultations 04/25/19 12:02 ED Decision to Admit Stat 04/25/19 13:07 Consult Cardiology Routine 04/25/19 15:25 Consult Case Management - Discharge Planning Routine 04/25/19 15:51 Consult Nephrology Routine Hospital Course (1) Acute on chronic systolic CHF (congestive heart failure): Clinically much better today Has been on Lasix drip. Denies any shortness of breath and/or chest pain at rest Discussed with cut off machine operator and branch specialist We will change intravenous Lasix to oral Clinically a lot better Patient with PT and recommended rehab He will be discharged to [facility] this afternoon Torsemide 100 mg in the morning for diuresis and frequent kidney function electrolytes check up as an outpatient (2) Elevated troponin: Demand ischemia in setting of cardiomyopathy. No ACS No more chest pain (3) CAD (coronary artery disease): Stable without chest pain, Cont medical management including Plavix, Liptor, ASA 81, Imdur 30, Toprol XL 50. Denies any chest pain and/or palpitation (4) Ischemic cardiomyopathy: Cont with medical management as above and spironolactone. CHF seems to be stable (5) Left ventricular apical thrombus: Therapeutic INR, continue Coumadin INR is 3.3 today Coumadin as per recommendation INR is 3.7 today We will continue Coumadin (6) Diabetes mellitus type II, uncontrolled: Uncontrolled A1C, however, too much insulin caused hypoglycemia this admission. #3 carb coverage and sliding scale, fasting blood sugars around goal but uncontrolled throughout the day. He is reliably eating and feeling better. Home dose is 60 Units BID. Will increase to 40 Units BID now. Insulin doses as before (7) CKD (chronic kidney disease) stage 3, GFR 30-59 ml/min: At baseline. Cont to monitor daily while diuresing on lasix drip. Creatinine is slightly elevated BUN and creatinine is going up-discussed with nephrology With oral dose of torsemide, creatinine expected to improve (8) Hypertension: At goal, cont Lasix drip, Toprol XL, aldactone. Blood pressure is controlled (9) BPH (benign prostatic hyperplasia): Continue Flomax (10) Depression: Mood stable continue Zoloft (11) GERD (gastroesophageal reflux disease): As Omeprazole and Plavix interact, possibly decreasing the effectiveness of the Plavix, this was switched to Protonix 40mg PO BID. Defer to PCP to de- escalate therapy to 40mg daily for maintenance based on symptom control. (12) DVT prophylaxis: therapeutic on warfarin Full Code Dispo-cont PCU Discussed with the daughter He will be discharged this afternoon to [facility] Total Time Total Time Spent Total Time Spent (In Minutes): 35 minutes Total Time Includes: Examination of the Patient, Discharge Planning, Medication Reconciliation and Communication With Other Providers Discharge Plan Discharge Items Patient Disposition: Transfer Inpatient Rehab Fac Reason For Visit: SYSTOLIC CHF EXAC., ELEVATED TROP Discharge Diagnosis: Acute on chronic systolic CHF, ischemic cardiomyopathy, left ventricular apical thrombus, chronic kidney disease, hypertension Condition: Fair Discharge Goals: Decrease discomfort, Improve function and Increase independence Activity: Resume your previous activity Non-emergency contact: Primary Care Provider Call non-emergency contact if: you have any medication questions and your symptoms worsen Follow-up/Referrals: Anamaria Max PA-C [Primary Care Provider] - (Please make an appointment with your primary care physician within 1 week. Please keep appointment with Mr. Tiwari ([facility] cardiology) on the of this month) Diet: Carb Consistent or DM2 and Heart Healthy Fluids: 1500ml (6 cups) Addtl Provider Instructions: Please take precaution to avoid falls and continue with your oxygen. Torsemide dose has been changed. He was given torsemide 100 mg daily in the morning and previous doses of torsemide have been discontinued He will continue metolazone but may need up to 2 times in a week depending on changing his weight. He will need to have BMP and Magnesium checked within the next 3 to 5 days and reports referred to the branch specialist His INR was 3.7 on 05/03 and he will not get any Coumadin today that is 05/03 and will continue his usual doses from tomorrow. Please check INR periodically to keep it in therapeutic range and adjust Coumadin Prescriptions: New torsemide 100 mg Tablet 100 mg PO QAM 30 Days Qty: 30 RF: 0 Continued atorvastatin [Lipitor] 80 mg Tablet 80 mg PO DAILY RF: 0 aspirin 81 mg Tablet,Delayed Release (Dr/Ec) 81 mg PO QAM RF: 0 tamsulosin 0.4 mg Capsule 0.4 mg PO DAILY RF: 0 nitroglycerin [Nitrostat] 0.4 mg Tablet, Sublingual 0.4 mg Sublingual DIRECTED PRN (Reason: Chest Pain) RF: 0 omeprazole 20 mg Capsule,Delayed Release(Dr/Ec) 20 mg PO BID RF: 0 cholecalciferol (vitamin D3) [Vitamin D3] 1,000 unit Tablet 1 tab PO DAILY RF: 0 calcium polycarbophil [Fiber Therapy (ca polycarboph)] 625 mg Tablet 1 tab PO QAM RF: 0 clopidogrel 75 mg Tablet 75 mg PO QAM RF: 0 isosorbide mononitrate 60 mg Tablet Extended Release 24 Hr 30 mg PO QAM RF: 0 albuterol sulfate 90 mcg/actuation Hfa Aerosol Inhaler 2 puff INHALATION Q6H PRN (Reason: SOB) RF: 0 sertraline 50 mg Tablet 50 mg PO DAILY RF: 0 docusate sodium 100 mg Tablet 200 mg PO DAILY RF: 0 potassium chloride 20 mEq tablet extended release 40 meq PO MO RF: 0 metolazone 2.5 mg tablet 2.5 mg PO MO RF: 0 potassium chloride 20 mEq tablet extended release 20 meq PO [id number] RF: 0 Novolog Flexpen U-100 Insulin 100 unit/mL insulin pen 30 unit SC ACHS RF: 0 Lantus Solostar U-100 Insulin 100 unit/mL (3 mL) insulin pen 60 unit SC BID RF: 0 melatonin 5 mg Tablet 15 mg PO HS RF: 0 spironolactone [Aldactone] 25 mg Tablet 12.5 mg PO DAILY RF: 0 warfarin [Coumadin] 10 mg Tablet 10 mg PO [id number] Qty: 30 RF: 0 warfarin [Coumadin] 7.5 mg Tablet 7.5 mg PO [id number]@1600 Qty: 30 RF: 0 metoprolol succinate 50 mg Tablet Extended Release 24 Hr 50 mg PO QAM Qty: 30 RF: 0 Discontinued torsemide [Demadex] 20 mg tablet 40 mg PO QPM RF: 0 torsemide [Demadex] 20 mg tablet 60 mg PO QAM RF: 0 Stand-Alone Forms: My [facility]/Other Patient Handouts: Tips Using Less Salt, Choices Low Salt, Diet Low Salt Dc, ED Diet Low Salt 2Gm Discharge Orders: Discharge Order (Routine); Ordered 05/03/19 Ordered By: Manabendra Rama Skilled Items Patient informed of condition?: Yes DNR: No Discharge Level of Care: Skilled Communicable Disease: No Discharge Prognosis: Stable Admission Data Admit Date/Time: 04/25/19 13:02 Attending Provider: Renu Ontiveros Admit Provider: Jax Carrillo Primary Care Provider: Anamaria Max Other Providers: Jeimy Yancey ; Elias Garcia ; Jax Carrillo ; Avis Davis Service: Telemetry Other Interventions: Discharge Summary Assessment (RN) Last Done: 05/03/19 14:29 DC Date/Time DO NOT enter until pt leaves facility: 05/03/19 15:18
== END 2019-05-03 15:18 | DRG 291 ==
LOC: ED 10:14 → 2E 13:02 → SUATTDRO 13:02 → 2E 14:40